=== PATIENT | male | born 1955 | race Caucasian/White ===

== ENCOUNTER 2018-06-20 13:12 | Emergency (ER) | payer OTHER ==
--- NOTE | 2018-06-20 14:18 | RAD REPORT ---
EXAM DESCRIPTION: CT - Head C Spine Mpr Wo Con - 06/20/2018 2:03 pm CLINICAL HISTORY: Head and neck injury status post fall. Head and neck pain COMPARISON: None. TECHNIQUE: Computed axial tomography of the head and cervical spine was obtained. Sagittal and coronal reconstruction was performed. All CT scans are performed using dose optimization technique as appropriate and may include automated exposure control or mA/KV adjustment according to patient size. FINDINGS: Mild parietal scalp swelling is present without a skull fracture. Low-density within the left frontal lobe and right parietooccipital lobe have the appearance of old infarction. Moderate low-density areas within periventricular deep white matter likely represent isch emic changes secondary to small vessel disease An intracranial bleed is not seen. The ventricles are normal in caliber. An extra-axial fluid collect ion is not noted.Fluid within the visualized sinuses and mastoids is not seen Mild posterior subluxation of C3 on C4, C4 on C5-C5 on C6 is present. Spondylosis C4-5 results in severe central spinal stenosis and compression of the spinal cord. A broad-based right paracentral calcified disc herniation is extruded inferiorly C5-6. Marked central spinal stenosis and compression of the spinal cord is seen. A cervical fracture is not visualized. No dislocation is noted. IMPRESSION: No acute intracranial abnormality is seen. A cervical fracture is not visualized. Spondylosis C4-5 resulting in severe central spinal stenosis and compression of the spinal cord Broad base right paracentral calcified disc herniation extruded inferiorly C5-6
--- NOTE | 2018-06-20 14:19 | RAD REPORT ---
EXAM DESCRIPTION: Radha Single View06/20/2018 2:08 pm CLINICAL HISTORY: Chest pain COMPARISON: none FINDINGS: The lungs appear clear of acute infiltrate. The heart is mildly enlarged. A central venou s line has its tip in the superior vena cava IMPRESSION: No acute abnormalities displayed
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
== END 2018-06-20 16:05 | disposition home or self-care (01) ==
LOC: ER 13:12
DX: S09.90XA Unspecified injury of head, initial encounter (principal); S20.219A Contusion of unspecified front wall of thorax, initial encounter; S00.81XA Abrasion of other part of head, initial encounter; Y92.129 Unspecified place in nursing home as the place of occurrence of the external cause; V00.811A Fall from moving wheelchair (powered), initial encounter
CPT/HCPCS: 70450; 71045; 72125; 99284

== ENCOUNTER 2018-07-30 18:54 | Emergency (ER) | payer OTHER ==
--- OUTSIDE RECORDS SUMMARY | 2018-07-30 18:56 | XMS REPORT ---
:1955 [facility] Address [address] [place] [address] Care Team Providers Name Role Phone KENNETH ISBELL M.D. Unavailable Unavailable Problems This patient has no known problems. Allergies, Adverse Reactions, Alerts This patient has no known allergies or adverse reactions. Medications This patient has no known medications. Results Test Description Test Time Test Comments Text Results Atomic Results Result Comments XR CHEST 1 VIEW 2018-02-14 10:20:53 CT BRAIN WITHOUT CONTRAST: 0950 HOURS.COMPARISON: No prior studies.CLINICAL INFORMATION: Syncope.Radiation dose lowering techniques were used according to ALARAprinciple. Axial images were made without IV contrast media. Old infarct is seenwithin the right posterior parietal/occipital lobe of. There is corticalatrophy with chronic ischemic changes within periventricular whitematter and within deep white matter tracts. Small old lacunar infarctionis seen within the right basal ganglia. There is no acute bleed. No masseffect or midline shift is identified. The bony calvarium is intact.Visualized paranasal sinuses are clear. Symmetric pneumatization ofmastoid air cells is noted.IMPRESSION:1. No acute intracranial abnormality.2. Atrophy with chronic white matter ischemic changes.3. 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 CVA. Alzheimer'sdisease.No previous studies are available for correlation. There is mild cardiacenlargement with normal pulmonary vascularity. No acute infiltrates orpleural effusions are identified. Port-A-Cath position is unchanged.Arthritic changes are noted within the shoulders.IMPRESSION:1. No radiographic findings of acute cardiopulmonary disease. CT HEAD OR BRAIN WO 2018-02-14 10:20:53 CT BRAIN WITHOUT CONTRAST: 0950 CONTRAST HOURS.COMPARISON: No prior studies.CLINICAL INFORMATION: Syncope.Radiation dose lowering techniques were used according to ALARAprinciple. Axial images were made without IV contrast media. Old infarct is seenwithin the right posterior parietal/occipital lobe of. There is corticalatrophy with chronic ischemic changes within periventricular whitematter and within deep white matter tracts. Small old lacunar infarctionis seen within the right basal ganglia. There is no acute bleed. No masseffect or midline shift is identified. The bony calvarium is intact.Visualized paranasal sinuses are clear. Symmetric pneumatization ofmastoid air cells is noted.IMPRESSION:1. No acute intracranial abnormality.2. Atrophy with chronic white matter ischemic changes.3. 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 CVA. Alzheimer'sdisease.No previous studies are available for correlation. There is mild cardiacenlargement with normal pulmonary vascularity. No acute infiltrates orpleural effusions are identified. Port-A-Cath position is unchanged.Arthritic changes are noted within the shoulders.
--- NOTE | 2018-07-30 19:26 | RAD REPORT ---
EXAM DESCRIPTION: CT - Head Brain Wo Cont - 07/30/2018 7:16 pm CLINICAL HISTORY: TRAUMA COMPARISON: Head C Spine Mpr Wo Con dated 06/20/2018 TECHNIQUE: All CT scans are performed using dose optimization technique as appropriate and may inclu de automated exposure control or mA/KV adjustment according to patient size. FINDINGS: No intracranial hemorrhage, hydrocephalus or extra-axial fluid collection.Moderate general ized brain atrophy is present with moderate periventricular and deep white matter chronic microvascul ar ischemic changes.Gliosis is seen in the right occipital lobe compatible with old infarct. Vertebra l arteries are atherosclerotic. The paranasal sinuses and mastoids are clear. The calvarium is intact. IMPRESSION: No acute intracranial abnormality.
--- NOTE | 2018-07-30 19:39 | RAD REPORT ---
EXAM DESCRIPTION: RAD - Forearm Right - 07/30/2018 7:32 pm CLINICAL HISTORY: PAIN COMPARISON: No comparisons FINDINGS: No acute fracture or dislocation. Soft tissue swelling is present in the forearm. IMPRESSION: No acute fracture seen.
--- NOTE | 2018-07-30 20:32 | EDPHYS ---
Physician Documentation [facility] Name: Brandin Baker Age: 63 yrs Sex: Male : 1955 Arrival Date: 07/30/2018 Time: 18:59 Bed 28 Private MD: ED Physician Eduardo Jeffries HPI: 07/30 20:04 This 63 yrs old Male presents to ER via EMS with complaints of Fall Injury. kb 20:04 Details of fall: The patient fell from an upright position, while standing. Onset: The kb symptoms/episode began/occurred just prior to arrival. Associated injuries: The patient sustained injury to the head, laceration, 2 cm(s). Severity of symptoms: At their worst the symptoms were mild, in the emergency department the symptoms are unchanged. The patient has not experienced similar symptoms in the past. The patient has not recently seen a physician. Pt stood up from wheelchair and fell. Laceration to head and bridge of nose, swelling to right forearm. . Historical: - Home Meds: 19:49 aspirin 81 mg Oral chew 1 tab once daily [Active]; Aricept 10 mg Oral tab 1 tab once tl3 daily [Active]; atorvastatin 20 mg oral tab 1 tab once daily [Active]; carbamazepine 100 mg Oral CM12 2 caps three times a day [Active]; Colace 50 mg oral cap 1 cap 2 times per day [Active]; Depakote Sprinkles 125 mg Oral cpSP 3 times per day [Active]; bisacodyl 10 mg Rectal supp 1 suppository once daily [Active]; Zantac 75 mg Oral tab once daily [Active]; Protonix 40 mg Oral TbEC 1 tab 2 times per day [Active]; ergocalciferol (vitamin D2) miscellaneous powd daily [Active]; finasteride 5 mg oral tab 1 tab once daily [Active]; folic acid 1 mg Oral tab 1 tab once daily [Active]; lactulose 10 gram/15 mL (15 mL) Oral soln 15 mL 3 times per day [Active]; Lexapro 10 mg Oral tab 1 tab once daily [Active]; metoprolol tartrate 50 mg Oral tab 1 tab 2 times per day [Active]; Nuedexta 20-10 mg oral cap 1 cap every 12 hours [Active]; - PMHx: 19:26 GERD; Insomnia; Bipolar disorder; Anxiety; Hyperlipidemia; Anemia; urine retention; tl3 constipation; Hypertension; Dementia; Alzheimers; CHF; Epilepsy; dysphagia; Depression; - Immunization history:: Adult Immunizations up to date. - Social history:: Smoking status: unknown. - Immunization history: Last tetanus immunization: - up to date. - Ebola Screening: : No symptoms or risks identified at this time. - Code Status:: Full code. ROS: 20:07 Constitutional: Negative for fever, chills, and weight loss, ENT: Negative for injury, kb pain, and discharge, Neck: Negative for injury, pain, and swelling, Cardiovascular: Negative for chest pain, palpitations, and edema, Respiratory: Negative for shortness of breath, cough, wheezing, and pleuritic chest pain, Abdomen/GI: Negative for abdominal pain, nausea, vomiting, diarrhea, and constipation, Neuro: Negative for headache, weakness, numbness, tingling, and seizure. 20:07 MS/extremity: Positive for swelling, of the right forearm. 20:07 Skin: Positive for laceration(s), of the bridge of nose and top of head. Exam: 20:05 Constitutional: This is a well developed, well nourished patient who is awake, alert, kb and in no acute distress. Chest/axilla: Normal chest wall appearance and motion. Nontender with no deformity. No lesions are appreciated. Cardiovascular: Regular rate and rhythm with a normal S1 and S2. No gallops, murmurs, or rubs. Normal PMI, no JVD. No pulse deficits. Respiratory: Lungs have equal breath sounds bilaterally, clear to auscultation and percussion. No rales, rhonchi or wheezes noted. No increased work of breathing, no retractions or nasal flaring. Abdomen/GI: Soft, non-tender, with normal bowel sounds. No distension or tympany. No guarding or rebound. No evidence of tenderness throughout. Back: No spinal tenderness. No costovertebral tenderness. Full range of motion. Neuro: Awake and alert, GCS 15, oriented to person, place, time, and situation. Cranial nerves II-XII grossly intact. Motor strength 5/5 in all extremities. Sensory grossly intact. Cerebellar exam normal. Normal gait. 20:05 Head/face: Noted is no obvious of injury or deformity except a laceration(s), that is superficial, 2 cm(s), of the top of head. 20:05 Musculoskeletal/extremity: Extremities: grossly normal except: noted in the right forearm: swelling, ROM: intact in all extremities, Circulation is intact in all extremities. Sensation intact. Vital Signs: 19:26 BP 118 / 87; Pulse 98; Resp 18; Temp 98.6(O); Pulse Ox 95% on R/A; tl3 21:07 BP 124 / 77; Pulse 76; Resp 16; Pulse Ox 96% on R/A; tl3 22:35 BP 133 / 87; Pulse 67; Resp 18; Pulse Ox 100% on R/A; tl3 23:34 BP 135 / 81; Pulse 61; Resp 20; Pulse Ox 100% on R/A; tl3 Laceration: 20:08 Wound Repair of 2cm ( 0.8in ) subcutaneous laceration to top of head. Linear shaped.. kb Distal neuro/vascular/tendon intact. Wound prep: Moderate cleansing with betadine by nurse, Wound irrigation with saline by nurse. Skin closed with 2 [place] using staple gun. Patient tolerated well. MDM: 19:00 Patient medically screened. kb 20:05 Data reviewed: vital signs, nurses notes. Data interpreted: Pulse oximetry: on room air kb is 95 %. Interpretation: normal. 20:08 Counseling: I had a detailed discussion with the patient and/or guardian regarding: the kb historical points, exam findings, and any diagnostic results supporting the discharge/admit diagnosis, radiology results, the need for outpatient follow up, a family practitioner, to return to the emergency department if symptoms worsen or persist or if there are any questions or concerns that arise at home. 07/30 19:03 Order name: Forearm Right XRAY; Complete Time: 20:03 kb 07/30 19:03 Order name: CT Head Brain wo Cont; Complete Time: 19:36 kb 07/30 20:04 Order name: Wound Care; Complete Time: 20:31 kb Administered Medications: 20:30 Drug: Tetanus-Diphtheria Toxoid Adult 0.5 ml {Investment Representative: [employer] ([employer] Exp: tl3 07/23/2020. Lot #: [id number]. } Route: IM; Site: right deltoid; 21:09 Follow up: Response: No adverse reaction tl3 Disposition: 07/31 07:11 Co-signature as Attending Physician, Eduardo Jeffries MD. rn Disposition: 07/30/18 20:32 Discharged to Home. Impression: Superficial injury of head, Laceration without foreign body of scalp, Fall on same level from slipping, tripping and stumbling. - Condition is Stable. - Discharge Instructions: Laceration Care, Adult, [id number], Head Injury, Adult, [id number]. - Medication Reconciliation Form, Thank You Letter, Antibiotic Education, Prescription Opioid Use form. - Follow up: Emergency Department; When: As needed; Reason: Worsening of condition. Follow up: Private Physician; When: 2 - 3 days; Reason: Recheck today's complaints, Continuance of care, Re-evaluation by your physician. - Notes: Have carol removed in 5-7 days Signatures: Dispatcher [employer] EDMS Wendi Shearer, MANAGER STYLIST-C MANAGER STYLIST-Ckb Eduardo Jeffries MD MD rn Lowrey, Tammy, RN RN tl3 Corrections: (The following items were deleted from the chart) 07/30 23:38 20:32 07/30/2018 20:32 Discharged to Home. Impression: Superficial injury of head; tl3 Laceration without foreign body of scalp; Fall on same level from slipping, tripping and stumbling. Condition is Stable. Forms are Medication Reconciliation Form, Thank You Letter, Antibiotic Education, Prescription Opioid Use. Follow up: Emergency Department; When: As needed; Reason: Worsening of condition. Follow up: Private Physician; When: 2 - 3 days; Reason: Recheck today's complaints, Continuance of care, Re-evaluation by your physician. kb
--- NOTE | 2018-07-30 20:32 | ER ---
Nurse's Notes [facility] Name: Brandin Baker Age: 63 yrs Sex: Male : 1955 Arrival Date: 07/30/2018 Time: 18:59 Bed 28 Private MD: Diagnosis: Superficial injury of head;Laceration without foreign body of scalp;Fall on same level from slipping, tripping and stumbling Presentation: 07/30 19:00 Presenting complaint: EMS states: pt fell forward out of wheelchair, sent for tl3 laceration to forehead, but also has sig. swelling to right forearm, no LOC, no vomiting pt AO X 1 per norm. Transition of care: patient was received from another setting of care (home health care). Onset of symptoms was July 30, 2018. Risk Assessment: Do you want to hurt yourself or someone else? Patient reports no desire to harm self or others. Initial Sepsis Screen: Does the patient meet any 2 criteria? No. Patient's initial sepsis screen is negative. Does the patient have a suspected source of infection? No. Patient's initial sepsis screen is negative. Care prior to arrival: None. 19:00 Method Of Arrival: EMS: [facility] tl3 19:00 Acuity: BERNARDA 3 tl3 Triage Assessment: 19:26 General: Appears comfortable, well groomed, well developed, well nourished, Behavior is tl3 calm, cooperative, per pt norm. Pain: Complains of pain in dorsal aspect of right forearm. EENT: No signs and/or symptoms were reported regarding the EENT system. Neuro: Level of Consciousness is awake, obeys commands, Oriented to person. Cardiovascular: Patient's skin is warm and dry. Respiratory: Airway is patent Respiratory effort is even, unlabored, Respiratory pattern is regular, symmetrical. GI: No signs and/or symptoms were reported involving the gastrointestinal system. : No signs and/or symptoms were reported regarding the genitourinary system. Derm: No signs and/or symptoms reported regarding the dermatologic system. Musculoskeletal: Parent/caregiver report the patient having pt fell forward out of his wheel chair. Historical: - Home Meds: 19:49 aspirin 81 mg Oral chew 1 tab once daily [Active]; Aricept 10 mg Oral tab 1 tab once tl3 daily [Active]; atorvastatin 20 mg oral tab 1 tab once daily [Active]; carbamazepine 100 mg Oral CM12 2 caps three times a day [Active]; Colace 50 mg oral cap 1 cap 2 times per day [Active]; Depakote Sprinkles 125 mg Oral cpSP 3 times per day [Active]; bisacodyl 10 mg Rectal supp 1 suppository once daily [Active]; Zantac 75 mg Oral tab once daily [Active]; Protonix 40 mg Oral TbEC 1 tab 2 times per day [Active]; ergocalciferol (vitamin D2) miscellaneous powd daily [Active]; finasteride 5 mg oral tab 1 tab once daily [Active]; folic acid 1 mg Oral tab 1 tab once daily [Active]; lactulose 10 gram/15 mL (15 mL) Oral soln 15 mL 3 times per day [Active]; Lexapro 10 mg Oral tab 1 tab once daily [Active]; metoprolol tartrate 50 mg Oral tab 1 tab 2 times per day [Active]; Nuedexta 20-10 mg oral cap 1 cap every 12 hours [Active]; - PMHx: 19:26 GERD; Insomnia; Bipolar disorder; Anxiety; Hyperlipidemia; Anemia; urine retention; tl3 constipation; Hypertension; Dementia; Alzheimers; CHF; Epilepsy; dysphagia; Depression; - Immunization history:: Adult Immunizations up to date. - Social history:: Smoking status: unknown. - Immunization history: Last tetanus immunization: - up to date. - Ebola Screening: : No symptoms or risks identified at this time. - Code Status:: Full code. Screenin:34 Abuse screen: Denies threats or abuse. Nutritional screening: No deficits noted. tl3 Tuberculosis screening: No symptoms or risk factors identified. Fall Risk Fall in past 12 months (25 points). Assessment: 19:34 Reassessment: No changes from previously documented assessment. tl3 21:07 Reassessment: Patient appears in no apparent distress at this time. No changes from tl3 previously documented assessment. Patient and/or family updated on plan of care and expected duration. Pain level reassessed. Patient is alert, oriented x 3, equal unlabored respirations, skin warm/dry/pink. [facility] called for transportation, stated they would send someone for the patient. 22:35 Reassessment: Patient appears in no apparent distress at this time. No changes from tl3 previously documented assessment. Patient and/or family updated on plan of care and expected duration. Pain level reassessed. Patient is alert, oriented x 3, equal unlabored respirations, skin warm/dry/pink. 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 23:34 Reassessment: Patient appears in no apparent distress at this time. No changes from tl3 previously documented assessment. Patient and/or family updated on plan of care and expected duration. Pain level reassessed. Patient is alert, oriented x 3, equal unlabored respirations, skin warm/dry/pink. pt cleaned and changed prior to discharge, [employer] here for transport. Vital Signs: 19:26 BP 118 / 87; Pulse 98; Resp 18; Temp 98.6(O); Pulse Ox 95% on R/A; tl3 21:07 BP 124 / 77; Pulse 76; Resp 16; Pulse Ox 96% on R/A; tl3 22:35 BP 133 / 87; Pulse 67; Resp 18; Pulse Ox 100% on R/A; tl3 23:34 BP 135 / 81; Pulse 61; Resp 20; Pulse Ox 100% on R/A; tl3 ED Course: 18:59 Patient arrived in ED. tl3 19:00 Natalee Thurman, MAUREEN is Primary Nurse. tl3 19:00 [facility] She[facility]C [facility]. kb 19:00 Eduardo Jeffries MD is Attending Physician. kb 19:02 Triage completed. tl3 19:[address] jg6 19:16 CT Head Brain wo Cont In Process Unspecified. EDMS 19:26 Arm band placed on left wrist. tl3 19:32 Forearm Right XRAY In Process Unspecified. EDMS 19:34 Patient has correct armband on for positive identification. Bed in low position. Call tl3 light in reach. Side rails up X 1. Warm blanket given. Pillow given. 19:34 No provider procedures requiring assistance completed. Patient did not have IV access tl3 during this emergency room visit. 19:35 Patient moved back from radiology. 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 Exp: tl3 07/23/2020. Lot #: [id number]. } Route: IM; Site: right deltoid; 21:09 Follow up: Response: No adverse reaction tl3 Outcome: 20:32 Discharge ordered by MD. mendez 23:34 Discharged to intermediate. Report called to [facility] tl3 23:34 Condition: stable 23:34 Discharge instructions given to intermediate, Instructed on discharge instructions, follow up and referral plans. Demonstrated understanding of 23:38 Patient left the ED. tl3 Signatures: Dispatcher [employer] EDWendi Loza, JULIANNA-C JULIANNA-Natalee Woodward, RN RN tl3 Roma Hays jg6
[2018-07-30] MEDS ORDERED: TETANUS & DIPHTHERIA TOX,ADULT 0.5 ML VIAL ONE (20:33)
== END 2018-07-30 23:38 | disposition home or self-care (01) ==
LOC: ER 18:54
PROC: 0JQ00ZZ Repair Scalp Subcutaneous Tissue and Fascia, Open Approach (ICD-10-PCS; principal; 2018-07-30)
DX: S01.01XA Laceration without foreign body of scalp, initial encounter (principal); S00.90XA Unspecified superficial injury of unspecified part of head, initial encounter; W01.0XXA Fall on same level from slipping, tripping and stumbling without subsequent striking against object, initial encounter; Y93.9 Activity, unspecified; Y92.9 Unspecified place or not applicable; F41.8 Other specified anxiety disorders; K21.9 Gastro-esophageal reflux disease without esophagitis; I10 Essential (primary) hypertension; E78.5 Hyperlipidemia, unspecified; G30.9 Alzheimer's disease, unspecified; F02.80 Dementia in other diseases classified elsewhere, unspecified severity, without behavioral disturbance, psychotic disturbance, mood disturbance, and anxiety; G40.909 Epilepsy, unspecified, not intractable, without status epilepticus; Z23 Encounter for immunization
CPT/HCPCS: 70450; 90714; 99284

== ENCOUNTER 2018-08-26 20:46 | Emergency (ER) | payer OTHER ==
--- OUTSIDE RECORDS SUMMARY | 2018-08-26 20:48 | XMS REPORT ---
:1955 [facility] Address [address] [place] [address] Care Team Providers Name Role Phone KENNETH [...]
[2018-08-26] MEDS ORDERED: HALOPERIDOL LACT 5 MG/ML INJ ONE (22:23)
[2018-08-26] MEDS ORDERED: TETANUS & DIPHTHERIA TOX,ADULT 0.5 ML VIAL ONE (22:23)
--- NOTE | 2018-08-26 23:21 | EDPHYS ---
Physician Documentation [facility] Name: Brandin Baker Age: 63 yrs Sex: Male : 1955 Arrival Date: 08/26/2018 Time: 20:51 Bed 24 Private MD: ED Physician Hernandez Carr HPI: 08/26 21:00 This 63 yrs old Male presents to ER via EMS with complaints of laceration. cp 21:00 The patient or guardian reports injury, a laceration, 1.5 cm(s). The complaints affect cp the nose. Context of injury: resulted from a fall, out of wheelchair. Onset: The symptoms/episode began/occurred today. Associated signs and symptoms: Loss of consciousness: This patient did not experience any loss of consciousness. Pertinent negatives: vomiting, chest pain, abdominal pain. Severity of symptoms: in the emergency department the symptoms are unchanged. Historical: - Home Meds: 08/27 00:19 Aricept 10 mg Oral tab 1 tab once daily [Active]; aspirin 81 mg Oral chew 1 tab once tl3 daily [Active]; atorvastatin 20 mg Oral tab 1 tab once daily [Active]; bisacodyl 10 mg Rectal supp 1 suppository once daily [Active]; carbamazepine 100 mg Oral CM12 2 caps three times a day [Active]; Colace 50 mg Oral cap 1 cap 2 times per day [Active]; Depakote Sprinkles 125 mg Oral cpSP 3 times per day [Active]; ergocalciferol (vitamin D2) miscellaneous powd daily [Active]; finasteride 5 mg Oral tab 1 tab once daily [Active]; folic acid 1 mg Oral tab 1 tab once daily [Active]; lactulose 10 gram/15 mL (15 mL) Oral soln 15 mL 3 times per day [Active]; Lexapro 10 mg Oral tab 1 tab once daily [Active]; metoprolol tartrate 50 mg Oral tab 1 tab 2 times per day [Active]; Nuedexta 20-10 mg Oral cap 1 cap every 12 hours [Active]; Protonix 40 mg Oral TbEC 1 tab 2 times per day [Active]; Zantac 75 mg Oral tab once daily [Active]; - PMHx: 00:19 Alzheimers; Anemia; Anxiety; Bipolar disorder; CHF; constipation; Dementia; Depression; tl3 DYSPHAGIA; epilepsy; GERD; Hyperlipidemia; Hypertension; insomnia; urine retention; - Immunization history:: Adult Immunizations up to date. - Social history:: Smoking status: unknown. - Ebola Screening: : No symptoms or risks identified at this time. ROS: 08/26 21:05 Constitutional: Negative for fever. cp 21:05 Abdomen/GI: Negative for vomiting. cp 21:05 Unable to obtain ROS due to baseline dementia. Exam: 21:12 Constitutional: The patient appears in no acute distress, alert, non-diaphoretic, cp non-toxic, well developed, well nourished. 21:12 Head/face: Noted is a laceration(s), that is deep, 1.5 cm(s), of the nose, swelling, cp that is mild, of the nose, tenderness, that is mild, of the nose, Sinus tenderness, is not appreciated. 21:12 Eyes: Periorbital structures: appear normal, Pupils: equal, round, and reactive to light and accomodation, Extraocular movements: intact throughout, Conjunctiva: normal, no exudate, no injection, Sclera: no appreciated abnormality, Lids and lashes: appear normal, bilaterally. 21:12 ENT: External ear(s): are unremarkable, Ear canal(s): are normal, clear, TM's: bulging, is not appreciated, bilaterally, dullness, bilaterally, erythema, is not appreciated, bilaterally, Nose: External nose: laceration is present, swelling is noted, approximately 1.5 cm(s), bridge of nose, Nasal septum: deviates to the right, no septal hematoma appreciated, bleeding, is not appreciated, clotted blood, in right nare, nasal drainage, is not appreciated, Mouth: Lips: moist, Oral mucosa: moist, Posterior pharynx: Airway: no evidence of obstruction, patent, swelling, is not appreciated, erythema, is not appreciated, exudate, is not appreciated. 21:12 Neck: C-spine: vertebral tenderness, is not appreciated, crepitus, is not appreciated, ROM/movement: is normal, is supple, without pain, no range of motions limitations, no nuchal rigidity. 21:12 Chest/axilla: Inspection: normal, Palpation: is normal, no crepitus, no tenderness. 21:12 Cardiovascular: Rate: normal, Rhythm: regular. 21:12 Respiratory: the patient does not display signs of respiratory distress, Respirations: normal, no use of accessory muscles, no retractions, no splinting, no tachypnea, labored breathing, is not present, Breath sounds: are clear throughout, no decreased breath sounds, no stridor, no wheezing. 21:12 Abdomen/GI: Inspection: abdomen appears normal, Palpation: abdomen is soft and non-tender, in all quadrants. 21:12 Musculoskeletal/extremity: Exam is negative for deformity, edema, injury. 21:12 Neuro: Orientation: to person, situation, Not oriented to time, Cerebellar function: is grossly normal, Motor: moves all fours, strength is normal. Vital Signs: 21:07 BP 118 / 94; Pulse 60; Resp 18; Temp 98; Pulse Ox 100% on R/A; Weight 58.51 kg; Height mg2 5 ft. 4 in. (162.56 cm); 21:07 Body Mass Index 22.14 (58.51 kg, 162.56 cm) mg2 Olivia Coma Score: 21:00 Eye Response: spontaneous(4). Verbal Response: oriented(5). Motor Response: obeys cp commands(6). Total: 15. MDM: 20:56 Patient medically screened. cp 22:00 Differential diagnosis: Contusion of Hematoma on Laceration of Intracranial bleed- cp Concussion cerebral contusion. 23:20 Data reviewed: vital signs, nurses notes, radiologic studies, CT scan, and as a result, cp I will discharge patient. 23:20 Counseling: I had a detailed discussion with the patient and/or guardian regarding: the cp historical points, exam findings, and any diagnostic results supporting the discharge/admit diagnosis, radiology results, to return to the emergency department if symptoms worsen or persist or if there are any questions or concerns that arise at home. Response to treatment: the patient's symptoms have markedly improved after treatment, and as a result, I will discharge patient. 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 Exp: tl3 10/14/2020. Lot #: [id number]. } Route: IM; Site: right deltoid; 22:41 Follow up: Response: No adverse reaction tl3 22:23 Drug: HALdol (as decanoate) 5 mg Route: IM; Site: right vastus lateralis; tl3 22:41 Follow up: Response: No adverse reaction tl3 22:41 Not Given (Patient Refused): Lidocaine Gel 2 % 1 application Mucous Membrane once; tl3 apply to nose Disposition: 08/27 00:30 Chart complete. cp 06:53 Co-signature as Attending Physician, Hernandez Carr MD I agree with the assessment and wa plan of care. Disposition: 08/26/18 23:21 Discharged to Home. Impression: Fall from non-moving wheelchair, Laceration without foreign body of nose. - Condition is Stable. - Discharge Instructions: Fall Prevention in the Home, Facial Laceration, Sterile Tape Wound Care. - Medication Reconciliation Form, Thank You Letter, Antibiotic Education, Prescription Opioid Use form. - Follow up: Emergency Department; When: As needed; Reason: Worsening of condition. - Problem is new. - Symptoms have improved. Signatures: Dispatcher [employer] EDEduardo Ann MD MD rn Page, Corey, PA PA Hernandez Carr MD MD wa Lowrey, Tammy, RN RN tl3 Corrections: (The following items were deleted from the chart) 08/26 22:02 22:01 Ativan 1 mg IM once ordered. cp cp 08/27 00:23 08/26 23:21 08/26/2018 23:21 Discharged to Home. Impression: Fall from non-moving tl3 wheelchair; Laceration without foreign body of nose. Condition is Stable. Forms are Medication Reconciliation Form, Thank You Letter, Antibiotic Education, Prescription Opioid Use. Follow up: Emergency Department; When: As needed; Reason: Worsening of condition. Problem is new. Symptoms have improved. cp 08/27 18:51 08/26 21:28 Refusal of service: The patient/guardian displays adequate decision making cp capability and despite a detailed discussion of alternatives, benefits, risks, and consequences refuses: CT Scan, cp
--- NOTE | 2018-08-26 23:21 | ER ---
Nurse's Notes [facility] Name: Brandin Baker Age: 63 yrs Sex: Male : 1955 Arrival Date: 08/26/2018 Time: 20:51 Bed 24 Private MD: Diagnosis: Fall from non-moving wheelchair;Laceration without foreign body of nose Presentation: 08/26 21:05 Presenting complaint: EMS states: patient fell out of the wheelchair \T\[id number] today and mg2 hit his nose, bled out but controlled. denies n/v. Transition of care: patient was received from another setting of care ([facility]. Onset of symptoms was August 26, 2018. Risk Assessment: Do you want to hurt yourself or someone else? Patient reports no desire to harm self or others. Initial Sepsis Screen: Does the patient meet any 2 criteria? No. Patient's initial sepsis screen is negative. Does the patient have a suspected source of infection? No. Patient's initial sepsis screen is negative. Care prior to arrival: None. 21:05 Method Of Arrival: EMS: [facility] mg2 21:05 Acuity: BERNARDA 3 mg2 Triage Assessment: 08/27 00:22 General: Appears unkempt. tl3 Historical: - Home Meds: 00:19 Aricept 10 mg Oral tab 1 tab once daily [Active]; aspirin 81 mg Oral chew 1 tab once tl3 daily [Active]; atorvastatin 20 mg Oral tab 1 tab once daily [Active]; bisacodyl 10 mg Rectal supp 1 suppository once daily [Active]; carbamazepine 100 mg Oral CM12 2 caps three times a day [Active]; Colace 50 mg Oral cap 1 cap 2 times per day [Active]; Depakote Sprinkles 125 mg Oral cpSP 3 times per day [Active]; ergocalciferol (vitamin D2) miscellaneous powd daily [Active]; finasteride 5 mg Oral tab 1 tab once daily [Active]; folic acid 1 mg Oral tab 1 tab once daily [Active]; lactulose 10 gram/15 mL (15 mL) Oral soln 15 mL 3 times per day [Active]; Lexapro 10 mg Oral tab 1 tab once daily [Active]; metoprolol tartrate 50 mg Oral tab 1 tab 2 times per day [Active]; Nuedexta 20-10 mg Oral cap 1 cap every 12 hours [Active]; Protonix 40 mg Oral TbEC 1 tab 2 times per day [Active]; Zantac 75 mg Oral tab once daily [Active]; - PMHx: 00:19 Alzheimers; Anemia; Anxiety; Bipolar disorder; CHF; constipation; Dementia; Depression; tl3 DYSPHAGIA; epilepsy; GERD; Hyperlipidemia; Hypertension; insomnia; urine retention; - Immunization history:: Adult Immunizations up to date. - Social history:: Smoking status: unknown. - Ebola Screening: : No symptoms or risks identified at this time. Screenin:19 Abuse screen: Denies threats or abuse. Nutritional screening: No deficits noted. tl3 Tuberculosis screening: No symptoms or risk factors identified. Fall Risk Fall in past 12 months (25 points). Assessment: 08/26 22:45 General: Appears unkempt, well nourished, Behavior is agitated, anxious, restless. tl3 Pain: Complains of pain in bridge of nose and nose. Neuro: Level of Consciousness is awake, alert, Oriented to person, place, time. Cardiovascular: Patient's skin is warm and dry. Respiratory: Airway is patent. GI: No signs and/or symptoms were reported involving the gastrointestinal system. : No signs and/or symptoms were reported regarding the genitourinary system. EENT:. Derm: Wound noted nose. Musculoskeletal: Musculoskeletal: No deficits noted. No signs and/or symptoms reported regarding the musculoskeletal system. 08/27 00:19 Reassessment: No changes from previously documented assessment. Patient and/or family tl3 updated on plan of care and expected duration. Pain level reassessed. Patient is alert, oriented x 3, equal unlabored respirations, skin warm/dry/pink. pt ride from [employer] her for transport. Vital Signs: 08/26 21:07 BP 118 / 94; Pulse 60; Resp 18; Temp 98; Pulse Ox 100% on R/A; Weight 58.51 kg; Height mg2 5 ft. 4 in. (162.56 cm); 21:07 Body Mass Index 22.14 (58.51 kg, 162.56 cm) mg2 [place] Coma Score: 21:00 Eye Response: spontaneous(4). Verbal Response: oriented(5). Motor Response: obeys cp commands(6). Total: 15. ED Course: 20:51 Patient arrived in ED. mg2 20:56 Francisco Brewster PA is PHCP. cp 20:56 Hernandez Carr MD is Attending Physician. cp 21:06 Triage completed. mg2 21:[address] via stretcher. eh 22:13 Natalee Thurman, MAUREEN is Primary Nurse. tl3 22:[address] tl3 22:24 CT Head C Spine Sent. tl3 22:25 CT Facial Bones W/O Con Sent. tl3 22:34 CT Facial Bones W/O Con In Process Unspecified. EDMS 22:34 CT Head C Spine In Process Unspecified. EDMS 23:08 CT completed. Pt tolerated procedure poorly. Patient moved back from CT. 08/27 00:19 No provider procedures requiring assistance completed. Patient did not have IV access tl3 during this emergency room visit. 00:19 Patient has correct armband on for positive identification. Placed in gown. Bed in low tl3 position. Side rails up X2. 00:23 Arm band placed on. 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 Exp: tl3 10/14/2020. Lot #: [id number]. } Route: IM; Site: right deltoid; 22:41 Follow up: Response: No adverse reaction tl3 22:23 Drug: HALdol (as decanoate) 5 mg Route: IM; Site: right vastus lateralis; tl3 22:41 Follow up: Response: No adverse reaction tl3 22:41 Not Given (Patient Refused): Lidocaine Gel 2 % 1 application Mucous Membrane once; tl3 apply to nose Outcome: 23:21 Discharge ordered by . cp 08/27 00:19 Discharged to home ambulatory. tl3 Condition: stable Discharge instructions given to asbestos siding installer, Instructed on discharge instructions, follow up and referral plans. medication usage, Demonstrated understanding of instructions, follow-up care, wound care. 00:23 Patient left the ED. tl3 Signatures: Dispatcher [employer] EDMA Umang Napoles Francisco Brewster PA PA cp Natalee Thurman, RN RN tl3 Moiz Park, RN RN mg2
--- NOTE | 2018-08-27 08:45 | RAD REPORT ---
EXAM DESCRIPTION: CT - [id number] - 08/27/2018 3:55 am CLINICAL HISTORY: Trauma, head and neck injury. fall out of wheelchair COMPARISON: Head C Spine Mpr Wo Con dated 06/20/2018 TECHNIQUE: Axial 5 mm thick images of the head were obtained. Axial 2 mm thick images of the cervical spine were obtained with sagittal and coronal reconstruction images generated and reviewed. All CT scans are performed using dose optimization technique as appropriate and may include automated exposure control or mA/KV adjustment according to patient size. FINDINGS: CT HEAD WITHOUT CONTRAST: No acute hemorrhage, hydrocephalus or extra-axial collection is identified.Advanced generalized brain atrophy is present with advanced periventricular and deep white matter chronic microvascular ischemi c changes.Gliosis is present right parietal lobe. The paranasal sinuses and mastoids are clear.The calvarium is intact. CT CERVICAL SPINE WITHOUT CONTRAST: No fracture or subluxation.Advanced multilevel degenerative changes present in the mid cervical spine .No prevertebral soft tissues swelling is identified. IMPRESSION: No acute intracranial or cervical spine findings. Advanced midcervical degenerative change.
--- NOTE | 2018-08-27 09:10 | RAD REPORT ---
EXAM DESCRIPTION: CT - CTFB CLINICAL HISTORY: laceration to nose from fall COMPARISON: No comparisons TECHNIQUE: Axial 2 mm thick images of the face were obtained with sagittal and coronal reconstructio n images. All CT scans are performed using dose optimization technique as appropriate and may include automated exposure control or mA/KV adjustment according to patient size. FINDINGS: Mild fracture of the anterior nasal bone is seen.The mandible is intact. The globes and orbital contents are grossly unremarkable.The paranasal sinuses and mastoids are clear . IMPRESSION: Mild nasal bone fracture. A preliminary written report was provided at the time of the study, and the report was reviewed prior to final dictation. Findings were discussed Dr. Jeffries in the ER 9:05 a.m. 08/27/2018 by telephone.
== END 2018-08-27 00:23 | disposition home or self-care (01) ==
LOC: ER 20:46
DX: S01.21XA Laceration without foreign body of nose, initial encounter (principal); W05.0XXA Fall from non-moving wheelchair, initial encounter; Y93.9 Activity, unspecified; Y92.9 Unspecified place or not applicable; Z23 Encounter for immunization; Z79.82 Long term (current) use of aspirin; I10 Essential (primary) hypertension; E78.5 Hyperlipidemia, unspecified; I50.9 Heart failure, unspecified; G30.9 Alzheimer's disease, unspecified; F02.80 Dementia in other diseases classified elsewhere, unspecified severity, without behavioral disturbance, psychotic disturbance, mood disturbance, and anxiety; F32.9 Major depressive disorder, single episode, unspecified
CPT/HCPCS: 70450; 70486; 72125; 76377; 90714; 96372; 99284; J1630

== ENCOUNTER 2018-11-19 11:36 | Emergency (ER) | payer OTHER ==
--- OUTSIDE RECORDS SUMMARY | 2018-11-19 11:37 | XMS REPORT ---
:1955 [facility] Address [address] [place] [address] Care Team Providers Name Role Phone KENNETH [...]
--- NOTE | 2018-11-19 13:51 | RAD REPORT ---
EXAM DESCRIPTION: Shoulder Right 2 View - 11/19/2018 1:15 pm CLINICAL HISTORY: Shoulder pain COMPARISON: Portable chest May 2018 TECHNIQUE: Internal and external rotation views of the right shoulder were obtained. FINDINGS: Right humerus has been dislocated from the shoulder joint. The humeral head is positioned inferior and slightly medial to the glenoid. This is a typical appearance for anterior dislocation no proximal humerus fracture seen. Osteopenic changes are present in the shaft of the humerus. There is spurring along the articular margin of the humeral head. There is subtle irregular contour along the humeral head abutting the inferior margin of the glenoid. There is questionable remodeling along the inferior margin of the glenoid as well. AC joint degenerative changes are present. Positioning for this examination is not optimal for AC ass essment. No AC joint separation. No clavicle fracture. IMPRESSION: Anterior dislocation of the right humeral head. The dislocation is new from May 2018 imaging. There are changes to the humeral head and glenoid th at would support chronic or recurring dislocation.
--- NOTE | 2018-11-19 14:02 | ER ---
Nurse's Notes [facility] Name: Brandin Baker Age: 63 yrs Sex: Male : 1955 Arrival Date: 11/19/2018 Time: 11:39 Bed 12 Private MD: Diagnosis: Unspecified dislocation of right shoulder joint Presentation: 11/19 12:05 Presenting complaint: [facility] worker states that a doctor from our facility wanted him to tw2 come get a referral for his right shoulder, but the family states it has been offset for years. Transition of care: patient was received from another setting of care ([facility]. Onset of symptoms was November 19, 2018. Risk Assessment: Do you want to hurt yourself or someone else? Patient reports no desire to harm self or others. Initial Sepsis Screen: Does the patient meet any 2 criteria? No. Patient's initial sepsis screen is negative. Does the patient have a suspected source of infection? No. Patient's initial sepsis screen is negative. Care prior to arrival: None. 12:05 Method Of Arrival: Wheelchair tw2 12:05 Acuity: BERNARDA 4 tw2 Triage Assessment: 14:08 General: Appears in no apparent distress. Behavior is calm, cooperative. iw Historical: - PMHx: 12:08 urine retention; Hypertension; Hyperlipidemia; DYSPHAGIA; Dementia; Bipolar disorder; tw2 constipation; Anxiety; CHF; Depression; Alzheimers; Anemia; epilepsy; GERD; insomnia; - Immunization history:: Adult Immunizations. - Social history:: Smoking status: . - Ebola Screening: : Patient denies travel to an Ebola-affected area in the 21 days before illness onset. Screenin:08 Abuse screen: Denies threats or abuse. Denies injuries from another. Nutritional iw screening: No deficits noted. Tuberculosis screening: No symptoms or risk factors identified. Fall Risk None identified. Assessment: 13:09 General: Appears in no apparent distress. Behavior is calm. Pain: Denies pain. Neuro: iw Level of Consciousness is awake, alert, obeys commands. Cardiovascular: Patient's skin is warm and dry. Respiratory: Respiratory effort is even, unlabored. Derm: Skin is intact, is healthy with good turgor. Musculoskeletal: Range of motion: limited in right shoulder. Vital Signs: 12:06 BP 96 / 59; Pulse 61; Resp 17; Temp 98.6(O); Pulse Ox 100% on R/A; Weight 65.77 kg (R); tw2 Height 5 ft. 0 in. (152.40 cm) (R); Pain 0/10; 12:06 Body Mass Index 28.32 (65.77 kg, 152.40 cm) tw2 ED Course: 11:39 Patient arrived in ED. mr 12:06 Triage completed. tw2 12:07 Arm band placed on. tw2 12:34 Jayne Enriquez RN is Primary Nurse. iw 12:49 Miguelito Louis NP is PHCP. pm1 12:49 Riaz Anderson MD is Attending Physician. pm1 13:09 X-ray completed. Portable x-ray completed in exam room. Patient tolerated procedure jb2 well. 13:09 Patient has correct armband on for positive identification. iw 13:12 Shoulder Right (2 View) XRAY In Process Unspecified. EDMS 14:02 Jose Eduardo Barton MD is Referral Physician. pm1 14:08 No provider procedures requiring assistance completed. Patient did not have IV access iw during this emergency room visit. Administered Medications: No medications were administered Outcome: 14:00 Discharge ordered by . pm1 14:08 Discharged to residential. iw 14:08 Condition: good 14:08 Discharge instructions given to housekeeping aide, Instructed on discharge instructions, follow up and referral plans. Demonstrated understanding of instructions, follow-up care. 14:09 Patient left the ED. iw Signatures: Dispatcher [employer] EDWI Mickey Loretta Fariase jb2 Jayne Enriquez RN RN iw Miguelito Louis NP [employer] pm1 Dennise Dodd RN RN tw2
--- NOTE | 2018-11-19 14:02 | EDPHYS ---
Physician Documentation [facility] Name: Brandin Baker Age: 63 yrs Sex: Male : 1955 Arrival Date: 11/19/2018 Time: 11:39 Bed 12 Private MD: ED Physician Riaz Anderson HPI: 11/19 12:59 This 63 yrs old Male presents to ER via Wheelchair with complaints of Right pm1 shoulder pain. 12:59 The patient or guardian complains of pain, dislocation. The complaints affect the right pm1 shoulder. Context: The problem was sustained at a long term or assisted living facility, resulted from unknown cause. Onset: The symptoms/episode began/occurred 6-7 years ago per family. Treatment prior to arrival includes: no previous treatment. Modifying factors: The symptoms are alleviated by nothing. the symptoms are aggravated by nothing. Severity of symptoms: in the emergency department the symptoms are unchanged. The patient has experienced similar episodes in the past, chronically. The patient has not recently seen a physician. Patient from long term and is present with health care worker. health care worker sates that the patient was sent here for an orthopedic referral for his chronic right shoulder dislocation. According to his family member who called the healthcare worker, the patient's shoulder has been an issue for 6-7 years. Historical: - PMHx: 12:08 urine retention; Hypertension; Hyperlipidemia; DYSPHAGIA; Dementia; Bipolar disorder; tw2 constipation; Anxiety; CHF; Depression; Alzheimers; Anemia; epilepsy; GERD; insomnia; - Immunization history:: Adult Immunizations. - Social history:: Smoking status: . - Ebola Screening: : Patient denies travel to an Ebola-affected area in the 21 days before illness onset. ROS: 12:59 Constitutional: Negative for fever, chills, and weight loss, Eyes: Negative for injury, pm1 pain, redness, and discharge, ENT: Negative for injury, pain, and discharge, Neck: Negative for injury, pain, and swelling, Cardiovascular: Negative for chest pain, palpitations, and edema, Respiratory: Negative for shortness of breath, cough, wheezing, and pleuritic chest pain, Abdomen/GI: Negative for abdominal pain, nausea, vomiting, diarrhea, and constipation, Back: Negative for injury and pain, : Negative for injury, bleeding, discharge, and swelling, Skin: Negative for injury, rash, and discoloration, Neuro: Negative for headache, weakness, numbness, tingling, and seizure. 12:59 MS/extremity: Positive for pain, of the right shoulder. Exam: 12:59 Constitutional: This is a well developed, well nourished patient who is awake, alert, pm1 and in no acute distress. Head/Face: Normocephalic, atraumatic. Neck: Trachea midline, no thyromegaly or masses palpated, and no cervical lymphadenopathy. Supple, full range of motion without nuchal rigidity, or vertebral point tenderness. No Meningismus. Chest/axilla: Normal chest wall appearance and motion. Nontender with no deformity. No lesions are appreciated. Cardiovascular: Regular rate and rhythm with a normal S1 and S2. No gallops, murmurs, or rubs. Normal PMI, no JVD. No pulse deficits. Respiratory: Lungs have equal breath sounds bilaterally, clear to auscultation and percussion. No rales, rhonchi or wheezes noted. No increased work of breathing, no retractions or nasal flaring. Back: No spinal tenderness. No costovertebral tenderness. Full range of motion. Skin: Warm, dry with normal turgor. Normal color with no rashes, no lesions, and no evidence of cellulitis. 12:59 Musculoskeletal/extremity: Extremities: all appear grossly normal, with no appreciated pain with palpation, ROM: full passive range of motion, in the right shoulder, No right shoulder dislocation present on examination, Pulses: are normal with no appreciated deficits, noted to be 2+ in the right radial artery and right brachial artery, the right arm Sensation intact. Vital Signs: 12:06 BP 96 / 59; Pulse 61; Resp 17; Temp 98.6(O); Pulse Ox 100% on R/A; Weight 65.77 kg (R); tw2 Height 5 ft. 0 in. (152.40 cm) (R); Pain 0/10; 12:06 Body Mass Index 28.32 (65.77 kg, 152.40 cm) tw2 Procedures: 13:49 Reduction: of the right shoulder, using manipulation, Patient tolerated well. Passive pm1 range of motion intact post reduction. MDM: 12:56 Patient medically screened. pm1 13:58 ED course: Patient without clinical dislocation on initial evaluation. Possibly pm1 dislocated with patient sitting in the wheelchair with right arm resting against arm rest. Patient's right shoulder has been dislocated for multiple years per family member. Right shoulder was easily reduced without medication and patient tolerated well. 13:59 Data reviewed: vital signs. Data interpreted: Pulse oximetry: on room air is 100 %. pm1 Interpretation: normal. Counseling: I had a detailed discussion with the patient and/or guardian regarding: the historical points, exam findings, and any diagnostic results supporting the discharge/admit diagnosis, radiology results, the need for outpatient follow up, for definitive care, a orthopedic surgeon, to return to the emergency department if symptoms worsen or persist or if there are any questions or concerns that arise at home. 11/19 12:59 Order name: Shoulder Right (2 View) XRAY; Complete Time: 13:58 pm1 Administered Medications: No medications were administered Disposition: 11/19/18 14:00 Discharged to Home. Impression: Unspecified dislocation of right shoulder joint. - Condition is Stable. - Discharge Instructions: Shoulder Dislocation. - Medication Reconciliation Form, Thank You Letter, Prescription Opioid Use form. - Follow up: Emergency Department; When: As needed; Reason: Worsening of condition. Follow up: Private Physician; When: 2 - 3 days; Reason: Recheck today's complaints, Continuance of care, Re-evaluation by your physician. Follow up: Jose Eduardo Barton MD; When: 2 - 3 days; Reason: Recheck today's complaints, Continuance of care, Re-evaluation by your physician. - Problem is new. - Symptoms are unchanged. Addendum: 11/26/2018 08:57 Co-signature as Attending Physician, Riaz Anderson MD I agree with the assessment and k dr plan of care. Signatures: Dispatcher [employer] EDMS Riaz Anderson MD MD kdr Jayne Enriquez RN RN iw Miguelito Louis NP [employer] pm1 Dennise Dodd RN RN tw2 Corrections: (The following items were deleted from the chart) 11/19 14:02 14:00 11/19/2018 14:00 Discharged to Home. Impression: Unspecified dislocation of right pm1 shoulder joint. Condition is Stable. Forms are Medication Reconciliation Form, Thank You Letter, Antibiotic Education, Prescription Opioid Use. Follow up: Emergency Department; When: As needed; Reason: Worsening of condition. Follow up: Private Physician; When: 2 - 3 days; Reason: Recheck today's complaints, Continuance of care, Re-evaluation by your physician. Problem is new. Symptoms are unchanged. pm1 14:09 14:02 11/19/2018 14:00 Discharged to Home. Impression: Unspecified dislocation of right iw shoulder joint. Condition is Stable. Discharge Instructions: Shoulder Dislocation. Forms are Medication Reconciliation Form, Thank You Letter, Prescription Opioid Use. Follow up: Emergency Department; When: As needed; Reason: Worsening of condition. Follow up: Private Physician; When: 2 - 3 days; Reason: Recheck today's complaints, Continuance of care, Re-evaluation by your physician. Follow up: Jose Eduardo Barton; When: 2 - 3 days; Reason: Recheck today's complaints, Continuance of care, Re-evaluation by your physician. Problem is new. Symptoms are unchanged. pm1
== END 2018-11-19 14:09 | disposition home or self-care (01) ==
LOC: ER 11:36
PROC: 0RSJXZZ Reposition Right Shoulder Joint, External Approach (ICD-10-PCS; principal; 2018-11-19)
DX: S43.004A Unspecified dislocation of right shoulder joint, initial encounter (principal); I10 Essential (primary) hypertension; G30.9 Alzheimer's disease, unspecified; F02.80 Dementia in other diseases classified elsewhere, unspecified severity, without behavioral disturbance, psychotic disturbance, mood disturbance, and anxiety; X58.XXXA Exposure to other specified factors, initial encounter; Y93.9 Activity, unspecified; Y92.129 Unspecified place in nursing home as the place of occurrence of the external cause
CPT/HCPCS: 99283

== ENCOUNTER 2018-12-31 19:33 | Inpatient (IN) | payer OTHER ==
--- OUTSIDE RECORDS SUMMARY | 2018-12-31 19:35 | XMS REPORT ---
:1955 [facility] [address] [place] [address] Care Team Providers Name Role Phone KENNETH [...]
[2018-12-31] MEDS ORDERED: NA CHLORIDE 0.9% 1,000 ML ONE ×2 (19:56→20:26)
--- NOTE | 2018-12-31 19:56 | RAD REPORT ---
EXAM DESCRIPTION: CT - Ct Stroke Brain Wo Cont - 12/31/2018 7:42 pm CLINICAL HISTORY: Slurred speech COMPARISON: July 2018 TECHNIQUE: Computed axial tomography of the head was obtained. IV contrast was not requested. All CT scans are performed using dose optimization technique as appropriate and may include automated exposure control or mA/KV adjustment according to patient size. FINDINGS: An intracranial bleed is not seen . The ventricles are normal in caliber. No extra-axial fluid collection is noted. 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 Moderate low-density areas within periventricular, deep and subcortical white matter likely secondary to ischemic changes secondary to small vessel disease. Small old left frontal lobe infarct suspected. Mild chronic sinusitis IMPRESSION: No acute intracranial abnormality is seen. If patient's symptoms persist MRI of the bra in would be recommended. Exam was discussed with Dr. Borges 7:40 p.m. December 31, 2018
[2018-12-31] MEDS ORDERED: NA CHLORIDE 0.9% 250 ML ONE (20:26)
[2018-12-31] MEDS ORDERED: LORazepam 2 MG/ML VIAL ONE (20:26)
[2018-12-31] MEDS ORDERED: CEFEPIME 1 GM/100 ML BAG IV ONE (20:26)
[2018-12-31] MEDS ORDERED: VANCOMYCIN 1 GM/VIAL ONE (20:26)
[2018-12-31 20:48] LABS: Absolute Lymphocytes (CBC) 1.6 K/uL (0.7-4.9); Basophils % 0.3 % (0-1.3); Eosinophils % 0.1 % (0-4.4); Hematocrit 29.1 % (39.6-49.0); Lymphocytes % 10.7 % (15.3-44.8); MPV 9.7 fL (7.6-11.3); Monocytes % 13.5 % (3.3-12.3); RBC Red Blood Cell Count 2.81 M/uL (4.33-5.43)
[2018-12-31 20:53] LABS: Protime INR 1.07
--- NOTE | 2018-12-31 21:00 | RAD REPORT ---
EXAM DESCRIPTION: Radha Single View12/31/2018 8:53 pm CLINICAL HISTORY: Could stroke COMPARISON: May 2018 FINDINGS: Mild progression in bilateral pulmonary opacities. The heart is normal size. Centri is li ne remains in place IMPRESSION: Mild progression in bilateral pulmonary opacities may represent progression in pulmonar y fibrosis or an acute process such as pneumonitis, pneumonia or pulmonary edema superimposed over ch ronic changes
[2018-12-31 21:19] LABS: Blood Morphology Comment NOTED (NOT SEEN); Hypochromasia 1+; Macrocytosis 1+; Platelet Estimate ADEQ
[2018-12-31 21:22] LABS: ALT/SGPT 34 U/L (12-78); AST/SGOT 46 U/L (15-37); Albumin 2.3 g/dL (3.4-5.0); Alkaline Phosphatase 95 U/L (45-117); BUN Blood Urea Nitrogen 27 mg/dL (7-18); Bicarbonate 27 mmol/L (21-32); Bilirubin Direct 0.2 mg/dL (0-0.2); Bilirubin Total 0.6 mg/dL (0.2-1.0); CKMB Creatine Kinase MB 4.6 ng/mL (0.3-3.6); Creatine Phosphokinase 461 U/L (39-308); Glucose Level 136 mg/dL (74-106); Lipase 83 U/L (73-393); Potassium 4.1 mmol/L (3.5-5.1); Sodium Level 137 mmol/L (136-145); Troponin (Emerg Dept Use Only) < 0.02 ng/mL (0.0-0.045)
[2018-12-31 22:27] LABS: Urine Bacteria <20 /HPF (NONE SEEN); Urine Culture Reflex Order NOT NEEDED
--- NOTE | 2018-12-31 23:08 | EDPHYS ---
Physician Documentation [facility] Name: Brandin Baker Age: 63 yrs Sex: Male : 1955 Arrival Date: 12/31/2018 Time: 19:34 Bed 30 Private MD: ED Physician Paresh Perez HPI: 12/31 21:23 This 63 yrs old Male presents to ER via EMS with complaints of AMS. ma2 21:23 The patient presents with confusion. Onset: The symptoms/episode began/occurred ma2 gradually, 1 day(s) ago. Possible causes: CVA or TIA, head injury, low blood sugar, seizure, sepsis. Associated signs and symptoms: Pertinent positives: agitation, confusion, Pertinent negatives: chest pain, diaphoresis, diarrhea. Current symptoms: In the emergency department the patient's symptoms are unchanged from the initial presentation. The patient has experienced a previous episode. Historical: - Allergies: 21:55 No Known Allergies; mg2 - Home Meds: 21:55 Aricept 10 mg Oral tab 1 tab once daily [Active]; aspirin 81 mg Oral chew 1 tab once mg2 daily [Active]; atorvastatin 20 mg Oral tab 1 tab once daily [Active]; bisacodyl 10 mg Rectal supp 1 suppository once daily [Active]; carbamazepine 100 mg Oral CM12 2 caps three times a day [Active]; Colace 50 mg Oral cap 1 cap 2 times per day [Active]; Depakote Sprinkles 125 mg Oral cpSP 3 times per day [Active]; ergocalciferol (vitamin D2) miscellaneous powd daily [Active]; finasteride 5 mg Oral tab 1 tab once daily [Active]; folic acid 1 mg Oral tab 1 tab once daily [Active]; lactulose 10 gram/15 mL (15 mL) Oral soln 15 mL 3 times per day [Active]; Lexapro 10 mg Oral tab 1 tab once daily [Active]; metoprolol tartrate 50 mg Oral tab 1 tab 2 times per day [Active]; Nuedexta 20-10 mg Oral cap 1 cap every 12 hours [Active]; Protonix 40 mg Oral TbEC 1 tab 2 times per day [Active]; Zantac 75 mg Oral tab once daily [Active]; - PMHx: 21:55 Alzheimers; Anemia; Anxiety; Bipolar disorder; CHF; constipation; Dementia; DYSPHAGIA; mg2 epilepsy; Depression; GERD; Hyperlipidemia; Hypertension; urine retention; insomnia; - Immunization history:: Flu vaccine status is unknown. - Social history:: Patient/guardian denies using alcohol, street drugs, The patient lives in a fpc, Smoking status: unknown. - Family history:: not pertinent. - Ebola Screening: : No symptoms or risks identified at this time. ROS: 21:23 ENT: Negative for injury, pain, and discharge, Neck: Negative for injury, pain, and ma2 swelling, Cardiovascular: Negative for chest pain, palpitations, and edema, Abdomen/GI: Negative for abdominal pain, nausea, diarrhea, and constipation, Back: Negative for injury and pain. 21:23 Respiratory: Positive for cough, Negative for dyspnea on exertion, pleurisy, sputum production. 21:23 All other systems are negative. Exam: 21:23 Head/Face: Normocephalic, atraumatic. Eyes: Pupils equal round and reactive to light, ma2 extra-ocular motions intact. Lids and lashes normal. Conjunctiva and sclera are non-icteric and not injected. Cornea within normal limits. Periorbital areas with no swelling, redness, or edema. ENT: Nares patent. No nasal discharge, no septal abnormalities noted. Tympanic membranes are normal and external auditory canals are clear. Oropharynx with no redness, swelling, or masses, exudates, or evidence of obstruction, uvula midline. Mucous membranes moist. Cardiovascular: Regular rate and rhythm with a normal S1 and S2. No gallops, murmurs, or rubs. Normal PMI, no JVD. No pulse deficits. Abdomen/GI: Soft, non-tender, with normal bowel sounds. No distension or tympany. No guarding or rebound. No evidence of tenderness throughout. 21:23 Respiratory: moderate respiratory distress is noted, Breath sounds: bronchial sounds, rhonchi, that are moderate, are scattered. 21:23 Neuro: Orientation: Mentation: confused, Cerebellar function: moving all extremities unable to assess d/t uncooperative and ams. Vital Signs: 20:06 BP 80 / 56; Pulse 65; Resp 20; Temp 98.6; Pulse Ox 100% on 3 lpm NC; Weight 65.7 kg; mg2 Height 5 ft. 0 in. (152.40 cm); 21:05 BP 82 / 55; Pulse 65; Resp 18; Pulse Ox 94% on R/A; Pain 0/10; mg2 21:41 BP 115 / 68; Pulse 81; Resp 18; Pulse Ox 98% on R/A; mg2 22:44 BP 79 / 59; Pulse 81; Resp 18; Pulse Ox 93% on 2 lpm NC; mg2 01/01 00:23 BP 81 / 59; Pulse 65; Resp 18; Temp 98.2; Pulse Ox 95% on 2 lpm NC; Pain 0/10; mg2 01:00 BP 97 / 77; Pulse 68; Resp 18; Temp 98.5; Pulse Ox 98% on 2 lpm NC; Pain 0/10; mg2 12/31 20:06 Body Mass Index 28.29 (65.70 kg, 152.40 cm) mg2 12/31 21:41 pt is sleeping mg2 MDM: 19:37 Patient medically screened. [facility] 21:23 Differential Diagnosis: CVA, electrolyte abnormality, intracranial bleed, meningitis, dc2 pneumonia, seizure, sepsis, volume depletion. 23:05 Data reviewed: vital signs, nurses notes. Counseling: I had a detailed discussion with [facility] the patient and/or guardian regarding: the historical points, exam findings, and any diagnostic results supporting the discharge/admit diagnosis, the presence of at least one elevated blood pressure reading (>120/80) during this emergency department visit, the need for further work-up and treatment in the hospital. Response to treatment: the patient's symptoms have markedly improved after treatment. ED course: BP improved has sepsis pneumonia tested positive for flu in the past . 12/31 19:50 Order name: Urine Culture [facility] 12/31 19:50 Order name: C-Reactive Protein [facility] 12/31 19:50 Order name: Basic Metabolic Panel [facility] 12/31 19:50 Order name: Blood Culture Adult (2) [facility] 12/31 19:50 Order name: CBC with Diff [facility] 12/31 19:50 Order name: Ckmb [facility] 12/31 19:50 Order name: CPK [facility] 12/31 19:50 Order name: Lactate [facility] 12/31 19:50 Order name: LFT's [facility] 12/31 19:50 Order name: Lipase [facility] 12/31 19:50 Order name: Procalcitonin [facility] 12/31 19:50 Order name: Protime (+inr) dc2 12/31 19:50 Order name: Ptt, Activated dc2 12/31 19:50 Order name: Troponin (emerg Dept Use Only) dc2 12/31 19:50 Order name: Urine Microscopic Only dc2 12/31 19:50 Order name: Influenza Screen (a \T\ B) dc2 12/31 20:52 Order name: CBC with Automated Diff; Complete Time: 21:58 EDMS 12/31 20:56 Order name: Protime (+INR); Complete Time: 21:58 EDMS 12/31 20:56 Order name: PTT, Activated Partial Thromb; Complete Time: 21:58 EDMS 12/31 21:01 Order name: Influenza Screen (A ; Complete Time: 21:58 EDMS 12/31 21:20 Order name: Manual Differential; Complete Time: 21:58 EDMS 12/31 21:22 Order name: Basic Metabolic Panel; Complete Time: 21:58 EDMS 12/31 21:22 Order name: Liver (Hepatic) Function; Complete Time: 21:58 EDMS 12/31 21:22 Order name: Creatine Phosphokinase; Complete Time: 21:58 EDMS 12/31 21:22 Order name: CKMB Creatine Kinase MB; Complete Time: 21:58 EDMS 12/31 21:22 Order name: Troponin (Emerg Dept Use Only); Complete Time: 21:58 EDMS 12/31 21:22 Order name: C-Reactive Protein; Complete Time: 21:58 EDMS 12/31 21:22 Order name: Lipase; Complete Time: 21:58 EDMS 12/31 21:30 Order name: Procalcitonin; Complete Time: 21:58 EDMS 12/31 21:51 Order name: Lactate; Complete Time: 21:58 EDMS 12/31 19:58 Order name: CT; Complete Time: 21:58 EDMS 12/31 21:00 Order name: RAD; Complete Time: 21:58 EDMS 12/31 22:28 Order name: Urine Microscopic Only; Complete Time: 22:46 EDMS 12/31 23:13 Order name: Ct Stroke Brain Wo Cont EDMS 12/31 23:14 Order name: Chest Single View EDMS 12/31 23:17 Order name: Urine Dipstick--Ancillary (enter results) ag4 12/31 23:46 Order name: Basic Metabolic Panel EDMS 12/31 23:46 Order name: Liver (Hepatic) Function EDMS 12/31 23:46 Order name: Creatine Phosphokinase EDMS 12/31 23:46 Order name: CKMB Creatine Kinase MB EDMS 12/31 23:46 Order name: Troponin (Emerg Dept Use Only) EDMS 12/31 23:46 Order name: C-Reactive Protein EDMS 12/31 23:46 Order name: Lipase EDMS 12/31 23:46 Order name: Procalcitonin EDMS 12/31 23:46 Order name: Lactate EDMS 12/31 23:46 Order name: CBC with Automated Diff EDMS 12/31 23:46 Order name: Manual Differential EDMS 12/31 23:46 Order name: Protime (+INR) EDMS 12/31 23:46 Order name: PTT, Activated Partial Thromb EDMS 12/31 23:46 Order name: Blood Culture EDMS 12/31 23:46 Order name: Blood Culture EDMS 12/31 23:46 Order name: Influenza Screen (A EDMS 12/31 23:46 Order name: Urine Microscopic Only EDMS 12/31 23:46 Order name: Urine Culture EDMS 12/31 23:58 Order name: Urine Dipstick-Ancillary EDMS 01/01 00:07 Order name: Blood Culture EDMS 12/31 19:50 Order name: Accucheck; Complete Time: 20:22 ma2 12/31 19:50 Order name: Cardiac monitoring; Complete Time: 20:22 ma2 12/31 19:50 Order name: EKG - Nurse/Tech; Complete Time: 20:22 ma2 12/31 19:50 Order name: IV Saline Lock - Large Bore; Complete Time: 20:22 ma2 12/31 19:50 Order name: Labs collected and sent; Complete Time: 20:22 ma2 12/31 19:50 Order name: O2 Per Protocol; Complete Time: 20:22 ma2 12/31 19:50 Order name: O2 Sat Monitoring; Complete Time: 20:22 ma2 12/31 19:50 Order name: Urine Dipstick-Ancillary (obtain specimen); Complete Time: 21:58 ma2 Administered Medications: 20:21 Drug: Cefepime 1 grams Route: IVPB; Rate: 200 ml/hr; Infused Over: 30 mins; Site: left mg2 forearm; 01/01 01:18 Follow up: Response: No adverse reaction; IV Status: Completed infusion mg2 12/31 20:22 Drug: NS 0.9% (30 ml/kg) 30 ml/kg Route: IV; Rate: bolus; Site: left forearm; mg2 01/01 01:19 Follow up: Response: No adverse reaction; IV Status: Completed infusion mg2 12/31 20:32 Drug: Ativan 1 mg Route: IVP; Site: right hand; mg2 01/01 01:17 Follow up: Response: No adverse reaction mg2 12/31 21:03 Drug: vancoMYCIN 1 grams Route: IVPB; Infused Over: 2 hrs; Site: left forearm; mg2 01/01 01:18 Follow up: Response: No adverse reaction; IV Status: Completed infusion mg2 01:16 Not Given (Physician Discretion): Norepinephrine (4 mg/250 mL D5W) 4 mcg/min IV at mg2 calculated rate Per protocol; (final concentration is 16 microgram/mL) 01:17 Drug: Tamiflu 75 mg Route: PO; mg2 01:17 Follow up: Response: No adverse reaction mg2 Point of Care Testing: Blood Glucose: 12/31 19:45 Blood Glucose: 165 mg/dL; aa1 Ranges: Critical Glucose Levels:Adult <50 mg/dl or >400 mg/dl <40 mg/dl or >180 mg/dl Disposition: 12/31/18 23:07 Hospitalization ordered by Stefanie Sanchez for Inpatient Admission. Preliminary diagnosis are Pneumonia due to other specified bacteria, Influenza due to certain identified influenza viruses. - Bed requested for Intensive Care Unit. - Status is Inpatient Admission. mg2 - Condition is Critical. - Problem is new. - Symptoms have improved. UTI on Admission? No Signatures: Dispatcher [employer] EDOR Ada Barajas RN RN kl Parseh Perez MD MD dc2 Moiz Park RN RN mg2 Corrections: (The following items were deleted from the chart) 23:46 19:51 Chest Single View+[id number].[email or web address] ordered. [facility] EDOR 23:55 23:07 Hospitalization Ordered by Stefanie Sanchez MD for Inpatient Admission. Preliminary kl diagnosis is Pneumonia due to other specified bacteria; Influenza due to certain identified influenza viruses. Bed requested for Intensive Care Unit. Status is Inpatient Admission. Condition is Critical. Problem is new. Symptoms have improved. UTI on Admission? No. ma2 01/01 01:22 12/31 23:55 12/31/2018 23:07 Hospitalization Ordered by Stefanie Sanchez MD for Inpatient mg2 Admission. Preliminary diagnosis is Pneumonia due to other specified bacteria; Influenza due to certain identified influenza viruses. Bed requested for Intensive Care Unit. Status is Inpatient Admission. Condition is Critical. Problem is new. Symptoms have improved. UTI on Admission? No. kl
--- NOTE | 2018-12-31 23:08 | ER ---
Nurse's Notes [facility] Name: Brandin Baker Age: 63 yrs Sex: Male : 1955 Arrival Date: 12/31/2018 Time: 19:34 Bed 30 Private MD: Diagnosis: Pneumonia due to other specified bacteria;Influenza due to certain identified influenza viruses Presentation: 12/31 19:26 Note Pt arrived to ED via EMS. Initial screening assessment performed by Dr. Justin yeung upon arrival and pt taken directly to CT by EMS accompanied by charge nurse. 19:35 Presenting complaint: Presenting complaint: EMS states: patient had slurred speech and mg2 left facial drooping \T\ 1830 today. he was febrile in the [facility] T- 100.5 and tylenol and aspirin 324 mg was given in the [facility]. upon assessment by the ems he was not slurred and his baseline orientation is basically low because of alzheimers. NSR on EKG, blood pressure was low \T\ 76/58. he is recently being treated for pneumonia and influenza. 19:35 Method Of Arrival: EMS: [facility] mg2 19:35 Transition of care: patient was received [place] setting of [place] [facility]. Onset of symptoms was December 31, 2018 at 18:30. Risk Assessment: Do you want to hurt yourself or someone else? Patient reports no desire to harm self or others. Initial Sepsis Screen: Does the patient meet any 2 criteria? No. Patient's initial sepsis screen is negative. Does the patient have a suspected source of infection?. Care prior to arrival: None. 19:35 Acuity: BERNARDA 2 mg2 Triage Assessment: 21:42 General: Appears in no apparent distress. uncomfortable, Behavior is restless. Pain: mg2 Denies pain. EENT: No deficits noted. Neuro: Level of Consciousness is awake, alert, obeys commands, Oriented to person, place, situation. Cardiovascular: Capillary refill < 3 seconds Patient's skin is warm and dry. Respiratory: Reports cough that is Airway is patent Respiratory effort is even, unlabored, Respiratory pattern is regular, symmetrical. GI: No signs and/or symptoms were reported involving the gastrointestinal system. : No signs and/or symptoms were reported regarding the genitourinary system. Derm: Skin is intact, is healthy with good turgor, Skin is pink, warm \T\ dry. normal. Musculoskeletal: Circulation, motion, and sensation intact. Capillary refill < 3 seconds. Historical: - Allergies: 21:55 No Known Allergies; mg2 - Home Meds: 21:55 Aricept 10 mg Oral tab 1 tab once daily [Active]; aspirin 81 mg Oral chew 1 tab once mg2 daily [Active]; atorvastatin 20 mg Oral tab 1 tab once daily [Active]; bisacodyl 10 mg Rectal supp 1 suppository once daily [Active]; carbamazepine 100 mg Oral CM12 2 caps three times a day [Active]; Colace 50 mg Oral cap 1 cap 2 times per day [Active]; Depakote Sprinkles 125 mg Oral cpSP 3 times per day [Active]; ergocalciferol (vitamin D2) miscellaneous powd daily [Active]; finasteride 5 mg Oral tab 1 tab once daily [Active]; folic acid 1 mg Oral tab 1 tab once daily [Active]; lactulose 10 gram/15 mL (15 mL) Oral soln 15 mL 3 times per day [Active]; Lexapro 10 mg Oral tab 1 tab once daily [Active]; metoprolol tartrate 50 mg Oral tab 1 tab 2 times per day [Active]; Nuedexta 20-10 mg Oral cap 1 cap every 12 hours [Active]; Protonix 40 mg Oral TbEC 1 tab 2 times per day [Active]; Zantac 75 mg Oral tab once daily [Active]; - PMHx: 21:55 Alzheimers; Anemia; Anxiety; Bipolar disorder; CHF; constipation; Dementia; DYSPHAGIA; mg2 epilepsy; Depression; GERD; Hyperlipidemia; Hypertension; urine retention; insomnia; - Immunization history:: Flu vaccine status is unknown. - Social history:: Patient/guardian denies using alcohol, street drugs, The patient lives in a [facility], Smoking status: unknown. - Family history:: not pertinent. - Ebola Screening: : No symptoms or risks identified at this time. Screenin:00 Patient has been NPO before screening. The patient is alert, able to follow commands. mg2 The patient does not exhibit slurred or garbled speech The patient is not exhibiting difficulty speaking. The patient does not exhibit difficulty understanding words. The patient is able to swallow own secretions with no drooling or need for suction. Patient tolerated one teaspoon of water. No drooling, immediate coughing, gurgling, or clearing of the throat was noted. The patient tolerated 90mL of water. No drooling, immediate coughing, gurgling, or clearing of the throat was noted. The patient passed the bedside swallow screening. Oral medications may be given as ordered. Contact Physician for further diet orders. 21:44 Abuse screen: Denies threats or abuse. Denies injuries from another. Nutritional mg2 screening: No deficits noted. Tuberculosis screening: No symptoms or risk factors identified. Fall Risk IV access (20 points). Assessment: 21:56 Reassessment: pls see triage assessment. mg2 22:41 Reassessment: provider informed about the blood pressure. mg2 Vital Signs: 20:06 BP 80 / 56; Pulse 65; Resp 20; Temp 98.6; Pulse Ox 100% on 3 lpm NC; Weight 65.7 kg; mg2 Height 5 ft. 0 in. (152.40 cm); 21:05 BP 82 / 55; Pulse 65; Resp 18; Pulse Ox 94% on R/A; Pain 0/10; mg2 21:41 BP 115 / 68; Pulse 81; Resp 18; Pulse Ox 98% on R/A; mg2 22:44 BP 79 / 59; Pulse 81; Resp 18; Pulse Ox 93% on 2 lpm NC; mg2 03/08 00:23 BP 81 / 59; Pulse 65; Resp 18; Temp 98.2; Pulse Ox 95% on 2 lpm NC; Pain 0/10; mg2 01:00 BP 97 / 77; Pulse 68; Resp 18; Temp 98.5; Pulse Ox 98% on 2 lpm NC; Pain 0/10; mg2 03/07 20:06 Body Mass Index 28.29 (65.70 kg, 152.40 cm) mg2 03 21:41 pt is sleeping mg2 ED Course: 19:26 Patient arrived in ED. aa1 19:26 RN/HOOKING MACHINE OPERATOR escort patient out of department to CT scan with oxygen, echocardiograph tech, [facility].aa1 19:34 Moiz Park, MAUREEN is Primary Nurse. mg2 19:37 Paresh Perez MD is Attending Physician. ma2 19:50 EKG done, by ED staff, reviewed by Paresh Perez MD. aa1 19:50 Inserted saline lock: 20 gauge in right hand, using aseptic technique. Blood collected. mg2 20:40 Triage completed. mg2 21:30 Lactate Sent. jp3 21:30 Repeat lab(s) drawn. by me, sent to lab. jp3 21:44 Arm band placed on. mg2 21:44 No provider procedures requiring assistance completed. mg2 21:45 Patient has correct armband on for positive identification. Door closed. Warm blanket mg2 given. 21:45 Maintain EMS IV. Dressing intact. Good blood return noted. Site clean \T\ dry. Gauge \T\ mg 2 site: 18 \T\ L FA. 21:45 Urine collected: straight cath specimen, clear, aleida colored, Amount Returned: 100mL. jp3 21:59 Urine Microscopic Only Sent. jp3 21:59 Urine Culture Sent. jp3 23:07 Stefanie Sanchez MD is Hospitalizing Provider. mo2 01/01 01:21 Patient admitted, IV remains in place. mg2 Administered Medications: 12/31 20:21 Drug: Cefepime 1 grams Route: IVPB; Rate: 200 ml/hr; Infused Over: 30 mins; Site: left mg2 forearm; 01/01 01:18 Follow up: Response: No adverse reaction; IV Status: Completed infusion mg2 12/31 20:22 Drug: NS 0.9% (30 ml/kg) 30 ml/kg Route: IV; Rate: bolus; Site: left forearm; mg2 01/01 01:19 Follow up: Response: No adverse reaction; IV Status: Completed infusion mg2 12/31 20:32 Drug: Ativan 1 mg Route: IVP; Site: right hand; mg2 01/01 01:17 Follow up: Response: No adverse reaction mg2 12/31 21:03 Drug: vancoMYCIN 1 grams Route: IVPB; Infused Over: 2 hrs; Site: left forearm; mg2 01/01 01:18 Follow up: Response: No adverse reaction; IV Status: Completed infusion mg2 01:16 Not Given (Physician Discretion): Norepinephrine (4 mg/250 mL D5W) 4 mcg/min IV at mg2 calculated rate Per protocol; (final concentration is 16 microgram/mL) 01:17 Drug: Tamiflu 75 mg Route: PO; mg2 01:17 Follow up: Response: No adverse reaction mg2 Point of Care Testing: Blood Glucose: 12/31 19:45 Blood Glucose: 165 mg/dL; aa1 Ranges: Outcome: 23:07 Decision to Hospitalize by Provider. ma2 01/01 01:21 Admitted to ICU accompanied by nurse, accompanied by tech, via stretcher, room 8, with mg2 oxygen, on monitor, with chart, Report called to Estrella Crespo RN Condition: stable Instructed on the need for admit, Demonstrated understanding of instructions. 01:22 Patient left the ED. mg2 Signatures: Roxanne Almanza RN RN aa1 Carol Diallo Mohammad, MD MD ma2 Moiz Park RN RN mg2 Jv Fonseca jp3 Corrections: (The following items were deleted from the chart) 12/31 19:39 19:34 Patient arrived in ED. as aa1 20:40 20:31 Presenting complaint: mg2 mg2 21:56 19:20 Reassessment: patient sent to ct. code stroke called. mg2 mg2
[2018-12-31] MEDS ORDERED: OSELTAMIVIR 75 MG CAP ONE (23:36)
[2018-12-31] MEDS ORDERED: NOREPINEPHRINE 4mg/D5W 250mL 4 MG/250 ML BAG IV ONE (23:37)
[2018-12-31 23:58] LABS: Urine Blood TRACE (NEG); Urine Glucose NEGATIVE (NEG); Urine Protein 2+ (NEG); Urine pH 5.5 (5.0-7.0)
--- NOTE | 2019-01-01 00:06 | P.HP ---
Certification for Inpatient Patient admitted to: Inpatient With expected LOS: >2 Midnights Practitioner: I am a practitioner with admitting privileges, knowledge of patient current condition, hospital course, and medical plan of care. Services: Services provided to patient in accordance with Admission requirements found in Title 42 Section 412.3 of the Code of Federal Regulations Patient History Date of Service: 12/31/18 Reason for admission: sepsis History of Present Illness: Mr Baker is a 63 years old male with history of Alzheimer's dementia, resident of a local [facility], who was diagnosed with flu last week. This afternoon, he was found more lethargic, with slurred speech, fever 100.5 F. The patient was confused and agitated at arrival to ED. At arrival he was hypotensive 80/56, O2 sat 100% on 3 L. Lab work remarkable for leukocytosis with bandemia, elevated procalcitonin and normal lactate. CXR shows bilateral infiltrate consistent with pneumonia. Home medications list reviewed: Yes - Past Medical/Surgical History -: Alzheimer's disease -: CHF -: dysphagia -: HTN -: hyperlipidemia Past Surgical History: Reviewed- Non-Contributory - Family History Family History: Reviewed- Non-Contributory - Social History Smoking Status: Unknown if ever smoked Alcohol use: No CD- Drugs: No Place of Residence: [facility] Review of Systems 10-point ROS is otherwise unremarkable Physical Examination - Physical Exam General: Alert, In no apparent distress HEENT: Atraumatic, PERRLA, Mucous membr. moist/pink, EOMI, Sclerae nonicteric Neck: Supple, 2+ carotid pulse no bruit, No LAD, Without JVD or thyroid abnormality Respiratory: Normal air movement, Crackles/rales (bibasilar crackles) Cardiovascular: Normal S1 S2, No gallops Gastrointestinal: Normal bowel sounds, No tenderness Musculoskeletal: No tenderness Integumentary: No rashes Neurological: Normal strength at 5/5 x4 extr, Normal tone, Normal affect Lymphatics: No axilla or inguinal lymphadenopathy - Studies Laboratory Data (last 24 hrs) 12/31/18 19:50: PT 12.6 H, INR 1.07, APTT 23.9 L 12/31/18 19:50: WBC 14.6 H, Hgb 9.6 L, Hct 29.1 L, Plt Count 218 12/31/18 19:50: Sodium 137, Potassium 4.1, BUN 27 H, Creatinine 1.14, Glucose 136 H, Total Bilirubin 0.6, AST 46 H, ALT 34, Alkaline Phosphatase 95, Lipase 83 Microbiology Data (last 24 hrs): 12/31/18 19:50 Nasopharnyx Influenza Type A Antigen Screen - Final 12/31/18 19:50 Nasopharnyx Influenza Type B Antigen Screen - Final Assessment and Plan - Problems (Diagnosis) (1) Sepsis Current Visit: Yes Status: Acute Qualifiers: Sepsis type: sepsis due to unspecified organism Qualified Code(s): A41.9 - Sepsis, unspecified organism (2) Pneumonia Current Visit: Yes Status: Acute Qualifiers: Pneumonia type: due to unspecified organism Laterality: bilateral Lung location: unspecified part of lung Qualified Code(s): J18.9 - Pneumonia, unspecified organism (3) Alzheimer's dementia Current Visit: Yes Status: Acute Qualifiers: Alzheimer's disease onset: unspecified onset Dementia behavioral disturbance: with behavioral disturbance Qualified Code(s): G30.9 - Alzheimer' s disease, unspecified; F02.81 - Dementia in other diseases classified elsewhere with behavioral disturbance - Plan Will admit the patient to ICU due to sepsis secondary to bilateral pneumonia, post-influenza infection. Will order empiric treatment with Vancomycin and Zosyn. Blood cultures in process. - Advance Directives Does patient have a Living Will: No Does patient have a Durable POA for Healthcare: No - Code Status/Comfort Care Code Status Assessed: Yes Code Status: Full Code
[2019-01-01] MEDS ORDERED: ONDANSETRON 4 MG/2 ML VIAL IV PRN (01:35)
[2019-01-01] MEDS ORDERED: IPRATROPIUM BROM 0.5MG/2.5ML NEB PRN (01:35)
[2019-01-01] MEDS ORDERED: ALBUTEROL 2.5 MG/3 ML NEB SOL NEB PRN (01:35)
[2019-01-01] MEDS ORDERED: VANCOMYCIN 750 MG in NA CHLORIDE 0.9% 250 ML IVPB ONE (02:00)
[2019-01-01] MEDS ORDERED: PIPER/TAZO/NS 3.375gm 3.375 GM/100 ML BAG IVPB ONE (02:00)
[2019-01-01] MEDS: NA CHLORIDE 0.9% 1,000 ML IV SCH ×3 (02:00→20:47)
[2019-01-01] MEDS ORDERED: VANCOMYCIN 1 GM/VIAL ONE (02:34)
[2019-01-01] MEDS ORDERED: PIPERACIL/TAZO 3.375 GM VIAL IV ONE (03:21)
[2019-01-01] MEDS ORDERED: NA CHLORIDE 0.9% 100 ML ONE (03:22)
[2019-01-01 05:46] LABS: Absolute Lymphocytes (CBC) 1.6 K/uL (0.7-4.9); Absolute Monocytes 1.7 K/uL (0.1-1.3); Absolute Neutrophil 11.5 K/uL (1.8-8.0); Basophils % 0.2 % (0-1.3); Eosinophils % 0.6 % (0-4.4); Lymphocytes % 10.8 % (15.3-44.8); MPV 9.6 fL (7.6-11.3); Monocytes % 11.4 % (3.3-12.3); RBC Red Blood Cell Count 3.35 M/uL (4.33-5.43)
[2019-01-01 05:51] LABS: Potassium 4.1 mmol/L (3.5-5.1)
[2019-01-01] MEDS ORDERED: LORazepam 2 MG/ML VIAL IV ONE (07:44)
[2019-01-01] MEDS ORDERED: VANCOMYCIN 1 GM in NA CHLORIDE 0.9% 500 ML IVPB SCH (09:00)
[2019-01-01] MEDS ORDERED: PIPER/TAZO/NS 3.375gm 3.375 GM/100 ML BAG IVPB SCH ×4 (09:00)
[2019-01-01] MEDS: LORAZEPAM 1 MG TABLET PO SCH ×2 (09:00→20:46)
[2019-01-01] MEDS: ENOXAPARIN 40 MG/0.4 ML SQ SCH (10:01)
[2019-01-01] MEDS: FINASTERIDE 5 MG TAB PO SCH (10:30)
[2019-01-01] MEDS: DOCUSATE NA 100 MG CAP PO SCH ×2 (10:30→20:47)
[2019-01-01] MEDS: FOLIC ACID 1 MG TABLET PO SCH (10:30)
[2019-01-01] MEDS: ASPIRIN EC 81 MG TAB PO SCH (10:30)
[2019-01-01] MEDS: LACTULOSE 20 GM/30 ML UCUP PO SCH ×3 (10:31→20:46)
[2019-01-01] MEDS: DIVALPROEX DR 250 MG TAB PO SCH ×3 (10:31→20:47)
[2019-01-01] MEDS: CARBAMAZEPINE 200 MG TAB PO SCH ×3 (10:31→20:46)
[2019-01-01] MEDS: ESCITALOPRAM 20 MG TAB PO SCH (10:31)
[2019-01-01] MEDS: BUSPIRONE HCL 15 MG TABLET PO SCH ×2 (10:31→20:46)
[2019-01-01] MEDS: POLYETHYL GLY 3350 17 GM/DOSE PO SCH (10:32)
[2019-01-01] MEDS ORDERED: NA CHLORIDE 0.9% 1,000 ML IV ONE (10:51)
[2019-01-01] MEDS: ACETAMINOPHEN 500 MG TAB PO PRN (11:59)
--- NOTE | 2019-01-01 13:43 | EKG ---
Test Date: 2018-12-31 Test Time: 19:49:09 Yard Associate: JARRED MEASUREMENT RESULTS: Intervals: Rate: 67 MD: 138 QRSD: 106 QT: 418 QTc: 441 [place]: P: 60 MD: 138 QRS: 62 T: 59 INTERPRETIVE STATEMENTS: Normal sinus rhythm Nonspecific T wave abnormality Abnormal ECG No previous ECG available for comparison Electronically Signed On 01-01-19 13:42:00 HUMAN RESOURCE ADVISOR by Harry Montero
--- NOTE | 2019-01-01 15:37 | PN ---
Date of Progress Note: 01/01/2019 Code Status: Full. Subjective: The patient seemed to be agitated and received 1 mg of Ativan. He is much more relaxed now. The patient is a resident of a [facility]dc with bipolar disorder. Medications: List reviewed. Physical Examination: Vital Signs: Temperature 100.1, heart rate 86, blood pressure 95/42, respirations 17, and O2 of 99% on room air. General: Asleep, but arousable. An elderly male, ill-appearing. CV: S1, S2. Regular rate and rhythm. Peripheral pulses present. Respiratory: Diminished breath sounds. No wheezing or stridor. Gastrointestinal: Abdomen is soft, nontender, nondistended. Positive bowel sounds. Extremities: No clubbing, cyanosis, or edema. Neurologic: Nonfocal. Laboratory Data: Sodium 140, potassium 4.1, chloride 108, CO2 of 27, BUN 28, creatinine 0.95, glucose 97, calcium 8.1. WBC 15, H and H 11.5 and 35, platelets 222, neutrophils 77%. Valproic acid level is 33. Blood cultures pending. CT scan of the brain, negative for acute intracranial abnormality. The patient does have small old left frontal lobe infarct, mild chronic sinusitis, cystic encephalomalacia within the right parietal lobe likely secondary to old infarction. Assessment: A 63-year-old male with: 1. Sepsis. We will continue on broad-spectrum IV antibiotics and follow up on cultures. White count is trending up. The patient is still hypotensive. Blood pressure in the 90s systolic. We will bolus with IV fluids. 2. Pneumonia, bilateral. Continue IV antibiotics. Follow up on sputum cultures. 3. Alzheimer dementia, early onset, with behavioral disturbance. 4. History of cerebrovascular accident. CT scan of the brain shows old infarct, but no new changes. No bleed. 5. Congestive heart failure, chronic, unknown EF. 6. Essential hypertension, currently hypotensive. We will hold blood pressure medications for now. 7. Hyperlipidemia. Continue home medications. 8. Dysphagia. The patient is on a mechanically ground diet. Once the patient is more awake and alert, we will do bedside swallow study and resume diet if tolerating. 9. Deep vein thrombosis prophylaxis addressed. Plan: Will step down from ICU once blood pressure is improved. /RACHEL Voice ID: [id number] Report ID: [id number] MTDD
[2019-01-01] MEDS ORDERED: CEFEPIME/SWI 1gm 10 ML IV SCH (17:00)
[2019-01-01] MEDS ORDERED: VANCOMYCIN 1.25 GM in NA CHLORIDE 0.9% 250 ML IVPB SCH (20:00)
[2019-01-01] MEDS: DONEPEZIL HCL 5 MG TAB PO SCH (20:47)
[2019-01-01] MEDS: ATORVASTATIN 20 MG TAB PO SCH (20:47)
[2019-01-01] MEDS: GABAPENTIN 100 MG CAP PO SCH (20:47)
[2019-01-01] MEDS ORDERED: VANCOMYCIN/NS 1 gm 1 GM/250 ML BAG IV SCH (21:00)
[2019-01-02] MEDS: ACETAMINOPHEN 500 MG TAB PO PRN (05:37)
[2019-01-02] MEDS: PANTOPRAZOLE 40MG TABLET PO SCH (05:39)
[2019-01-02] MEDS: NA CHLORIDE 0.9% 1,000 ML IV SCH (06:13)
[2019-01-02 07:26] LABS: Absolute Lymphocytes (CBC) 0.6 K/uL (0.7-4.9); Absolute Monocytes 1.6 K/uL (0.1-1.3); Absolute Neutrophil 7.7 K/uL (1.8-8.0); Basophils % 0.3 % (0-1.3); Eosinophils % 0.9 % (0-4.4); Hematocrit 28.3 % (39.6-49.0); Lymphocytes % 5.6 % (15.3-44.8); MPV 9.2 fL (7.6-11.3); Monocytes % 16.2 % (3.3-12.3); RBC Red Blood Cell Count 2.77 M/uL (4.33-5.43)
[2019-01-02 07:47] LABS: ALT/SGPT 28 U/L (12-78); AST/SGOT 34 U/L (15-37); Albumin 1.8 g/dL (3.4-5.0); Alkaline Phosphatase 109 U/L (45-117); BUN Blood Urea Nitrogen 19 mg/dL (7-18); Bicarbonate 25 mmol/L (21-32); Bilirubin Total 0.5 mg/dL (0.2-1.0); Glucose Level 104 mg/dL (74-106); Potassium 3.5 mmol/L (3.5-5.1); Protein, Total 5.8 g/dL (6.4-8.2); Sodium Level 144 mmol/L (136-145)
[2019-01-02] MEDS ORDERED: POTASSIUM CL SA 10 MEQ TAB PO ONE (08:11)
[2019-01-02] MEDS: POLYETHYL GLY 3350 17 GM/DOSE PO SCH (09:06)
[2019-01-02] MEDS: ESCITALOPRAM 20 MG TAB PO SCH (09:08)
[2019-01-02] MEDS: FOLIC ACID 1 MG TABLET PO SCH (09:08)
[2019-01-02] MEDS: DOCUSATE NA 100 MG CAP PO SCH ×2 (09:08→20:49)
[2019-01-02] MEDS: FINASTERIDE 5 MG TAB PO SCH (09:09)
[2019-01-02] MEDS: ASPIRIN EC 81 MG TAB PO SCH (09:09)
[2019-01-02] MEDS: BUSPIRONE HCL 15 MG TABLET PO SCH ×2 (09:10→20:49)
[2019-01-02] MEDS: CARBAMAZEPINE 200 MG TAB PO SCH ×3 (09:10→20:50)
[2019-01-02] MEDS: DIVALPROEX DR 250 MG TAB PO SCH ×3 (09:10→20:49)
[2019-01-02] MEDS: ENOXAPARIN 40 MG/0.4 ML SQ SCH (09:11)
[2019-01-02] MEDS: LACTULOSE 20 GM/30 ML UCUP PO SCH ×3 (09:46→20:48)
[2019-01-02] MEDS: LORAZEPAM 1 MG TABLET PO SCH ×2 (09:46→20:50)
[2019-01-02] MEDS: CEFEPIME/SWI 1gm 10 ML IV SCH ×2 (10:46→16:29)
[2019-01-02] MEDS: TRAMADOL HCL 50 MG TAB PO PRN ×2 (10:50→16:27)
[2019-01-02] MEDS ORDERED: CEFEPIME/SWI 1gm 1 ML IV SCH (11:00)
--- NOTE | 2019-01-02 12:31 | P.PN ---
Subjective Date of Service: 01/02/19 Chief Complaint: sepsis Patient seen and examined at bedside with RN. Chart reviewed. Case discussed with patient. Patient this morning seems to be lethargic. Unable to cough for me at this time. Easy arousable at this time. Overnight no complaints to offer. Review of Systems 10-point ROS is otherwise unremarkable Physical Examination - Vital Signs Temperature: 98.5 F Blood Pressure: 107/61 Pulse: 74 Respirations: 16 Pulse Ox (%): 94 - Physical Exam General: In no apparent distress, Demented, Other (Lethargy but easily arousable ) HEENT: Atraumatic, PERRLA, EOMI Neck: Supple, JVD not distended Respiratory: Normal air movement, Crackles/rales, Rhonchi/gurgles Cardiovascular: Regular rate/rhythm, Normal S1 S2 Gastrointestinal: Normal bowel sounds, No tenderness Musculoskeletal: No tenderness Integumentary: No rashes Neurological: Normal speech, Normal tone, Normal affect Lymphatics: No axilla or inguinal lymphadenopathy - Studies Microbiology Data (last 24 hrs): 12/31/18 20:15 Blood - Blood Anaerobic Blood Culture - Final 12/31/18 19:50 Blood - Blood Anaerobic Blood Culture - Final Medications List Reviewed: Yes Assessment And Plan - Current Problems (Diagnosis) (1) Sepsis Current Visit: Yes Status: Acute Plan: Sepsis most likely secondary to bilateral pneumonia - patient recently treated for influenza. - We will continue on broad-spectrum IV antibiotics and follow up on cultures. - leukocytosis improving today. -will continue to monitor patient here closely Qualifiers: Sepsis type: sepsis due to unspecified organism Qualified Code(s): A41.9 - Sepsis, unspecified organism (2) Pneumonia Current Visit: Yes Status: Acute Plan: Bilateral pneumonia post influenza -will continue on IV cefepime at this time. -follow up on sputum and blood cultures at this Qualifiers: Pneumonia type: due to unspecified organism Laterality: bilateral Lung location: unspecified part of lung Qualified Code(s): J18.9 - Pneumonia, unspecified organism (3) Alzheimer's dementia Current Visit: Yes Status: Chronic Qualifiers: Alzheimer's disease onset: unspecified onset Dementia behavioral disturbance: with behavioral disturbance Qualified Code(s): G30.9 - Alzheimer' s disease, unspecified; F02.81 - Dementia in other diseases classified elsewhere with behavioral disturbance (4) Hypertension Current Visit: Yes Status: Chronic Qualifiers: Hypertension type: essential hypertension Qualified Code(s): I10 - Essential (primary) hypertension (5) Hyperlipidemia Current Visit: Yes Status: Chronic Qualifiers: Hyperlipidemia type: mixed hyperlipidemia Qualified Code(s): E78.2 - Mixed hyperlipidemia (6) Congestive heart failure Current Visit: Yes Status: Chronic Qualifiers: Heart failure type: diastolic Heart failure chronicity: chronic Qualified Code(s): I50.32 - Chronic diastolic (congestive) heart failure (7) Dysphagia Current Visit: Yes Status: Chronic Qualifiers: Dysphagia type: oropharyngeal phase Qualified Code(s): R13.12 - Dysphagia, oropharyngeal phase - Plan Currently awaiting clinical improvement at this time. Will continue with broad- spectrum in the biotic until cultures results. Patient to be discharged back to alf once able to deescalate the antibiotics and patient doing better. Discharge Plan: Home Plan to discharge in: 48 Hours - Code Status/Comfort Care Code Status Assessed: Yes Critical Care: No
[2019-01-02] MEDS ORDERED: CEFEPIME 1 GM/VIAL IV SCH ×2 (17:00→21:00)
[2019-01-02] MEDS ORDERED: TRAMADOL HCL 50 MG TAB PO ONE (18:55)
[2019-01-02] MEDS: GABAPENTIN 100 MG CAP PO SCH (20:49)
[2019-01-02] MEDS: ATORVASTATIN 20 MG TAB PO SCH (20:49)
[2019-01-02] MEDS: DONEPEZIL HCL 5 MG TAB PO SCH (20:50)
[2019-01-03] MEDS: CEFEPIME/SWI 1gm 10 ML IV SCH ×3 (00:51→17:00)
[2019-01-03] MEDS: PANTOPRAZOLE 40MG TABLET PO SCH (06:28)
[2019-01-03 07:07] LABS: BUN Blood Urea Nitrogen 14 mg/dL (7-18); Bicarbonate 27 mmol/L (21-32); Glucose Level 99 mg/dL (74-106); Potassium 3.7 mmol/L (3.5-5.1); Sodium Level 140 mmol/L (136-145)
[2019-01-03] MEDS ORDERED: POTASSIUM 25 MEQ EFFERV TAB PO ONE (09:00)
[2019-01-03] MEDS: LORAZEPAM 1 MG TABLET PO SCH ×2 (10:21→20:58)
[2019-01-03] MEDS: DOCUSATE NA 100 MG CAP PO SCH ×2 (10:21→20:58)
[2019-01-03] MEDS: LACTULOSE 20 GM/30 ML UCUP PO SCH ×3 (10:21→20:59)
[2019-01-03] MEDS: BUSPIRONE HCL 15 MG TABLET PO SCH ×2 (10:22→20:58)
[2019-01-03] MEDS: ESCITALOPRAM 20 MG TAB PO SCH (10:23)
[2019-01-03] MEDS: FOLIC ACID 1 MG TABLET PO SCH (10:23)
[2019-01-03] MEDS: FINASTERIDE 5 MG TAB PO SCH (10:23)
[2019-01-03] MEDS: CARBAMAZEPINE 200 MG TAB PO SCH ×3 (10:24→20:58)
[2019-01-03] MEDS: ASPIRIN EC 81 MG TAB PO SCH (10:24)
[2019-01-03] MEDS: DIVALPROEX DR 250 MG TAB PO SCH ×3 (10:24→20:58)
[2019-01-03] MEDS: ENOXAPARIN 40 MG/0.4 ML SQ SCH (10:25)
[2019-01-03] MEDS: POLYETHYL GLY 3350 17 GM/DOSE PO SCH (10:25)
--- NOTE | 2019-01-03 11:00 | P.PN ---
Subjective Date of Service: 01/03/19 Chief Complaint: sepsis Patient seen and examined at bedside with RN. Chart reviewed. Case discussed with patient. Patient this morning doing well overall. Still having audible gurgling. Coughing this Am. Overnight no complaints to offer. Review of Systems 10-point ROS is otherwise unremarkable Physical Examination - Vital Signs Temperature: 99.6 F Blood Pressure: 144/72 Pulse: 109 Respirations: 16 Pulse Ox (%): 94 - Physical Exam General: Alert, In no apparent distress, Cachectic HEENT: Atraumatic, PERRLA, EOMI Neck: Supple, JVD not distended Respiratory: Normal air movement, Expiratory wheezes, Inspiratory wheezes, Rhonchi/gurgles Cardiovascular: Regular rate/rhythm, Normal S1 S2 Gastrointestinal: Normal bowel sounds, No tenderness Musculoskeletal: No tenderness Integumentary: No rashes Neurological: Normal speech, Normal tone, Normal affect Lymphatics: No axilla or inguinal lymphadenopathy - Studies Microbiology Data (last 24 hrs): 12/31/18 23:10 Catheterized Urine [place] Count - Final 12/31/18 23:10 Catheterized Urine - Final Medications List Reviewed: Yes Assessment And Plan - Current Problems (Diagnosis) (1) Sepsis Current Visit: Yes Status: Acute Plan: Sepsis most likely secondary to bilateral pneumonia. Most Likely post influenza PNA - patient recently treated for influenza 1 week ago. - We will continue on broad-spectrum IV antibiotics and follow up on cultures. - blood culture negative thus far. respiratory to collect Sputum culture today - will continue to monitor patient here closely Qualifiers: Sepsis type: sepsis due to unspecified organism Qualified Code(s): A41.9 - Sepsis, unspecified organism (2) Pneumonia Current Visit: Yes Status: Acute Plan: Bilateral pneumonia post influenza -will continue on IV cefepime at this time. -follow up on sputum and blood cultures at this time. Qualifiers: Pneumonia type: due to unspecified organism Laterality: bilateral Lung location: unspecified part of lung Qualified Code(s): J18.9 - Pneumonia, unspecified organism (3) Alzheimer's dementia Current Visit: Yes Status: Chronic Qualifiers: Alzheimer's disease onset: unspecified onset Dementia behavioral disturbance: with behavioral disturbance Qualified Code(s): G30.9 - Alzheimer' s disease, unspecified; F02.81 - Dementia in other diseases classified elsewhere with behavioral disturbance (4) Hypertension Current Visit: Yes Status: Chronic Qualifiers: Hypertension type: essential hypertension Qualified Code(s): I10 - Essential (primary) hypertension (5) Hyperlipidemia Current Visit: Yes Status: Chronic Qualifiers: Hyperlipidemia type: mixed hyperlipidemia Qualified Code(s): E78.2 - Mixed hyperlipidemia (6) Congestive heart failure Current Visit: Yes Status: Chronic Qualifiers: Heart failure type: diastolic Heart failure chronicity: chronic Qualified Code(s): I50.32 - Chronic diastolic (congestive) heart failure (7) Dysphagia Current Visit: Yes Status: Chronic Qualifiers: Dysphagia type: oropharyngeal phase Qualified Code(s): R13.12 - Dysphagia, oropharyngeal phase - Plan Currently awaiting clinical improvement at this time. Will continue with broad- spectrum Abx until sputum cultures results. Patient to be discharged back to long term once able to deescalate the antibiotics and patient doing better. Discharge Plan: Detention Plan to discharge in: 48 Hours - Code Status/Comfort Care Code Status Assessed: Yes Critical Care: No
[2019-01-03] MEDS: ATORVASTATIN 20 MG TAB PO SCH (20:58)
[2019-01-03] MEDS: DONEPEZIL HCL 5 MG TAB PO SCH (20:58)
[2019-01-03] MEDS: GABAPENTIN 100 MG CAP PO SCH (20:58)
[2019-01-04] MEDS: CEFEPIME/SWI 1gm 10 ML IV SCH ×3 (01:25→16:56)
[2019-01-04] MEDS: PANTOPRAZOLE 40MG TABLET PO SCH (05:54)
[2019-01-04 06:11] LABS: Absolute Lymphocytes (CBC) 1.1 K/uL (0.7-4.9); Absolute Monocytes 1.1 K/uL (0.1-1.3); Basophils % 0.1 % (0-1.3); Eosinophils % 2.2 % (0-4.4); Hematocrit 29.4 % (39.6-49.0); Lymphocytes % 9.6 % (15.3-44.8); MPV 8.9 fL (7.6-11.3); RBC Red Blood Cell Count 2.92 M/uL (4.33-5.43)
[2019-01-04 06:22] LABS: ALT/SGPT 33 U/L (12-78); AST/SGOT 33 U/L (15-37); Albumin 1.9 g/dL (3.4-5.0); Alkaline Phosphatase 151 U/L (45-117); BUN Blood Urea Nitrogen 11 mg/dL (7-18); Bicarbonate 27 mmol/L (21-32); Bilirubin Total 0.6 mg/dL (0.2-1.0); Glucose Level 91 mg/dL (74-106); Magnesium 1.9 mg/dL (1.8-2.4); Protein, Total 6.2 g/dL (6.4-8.2); Sodium Level 139 mmol/L (136-145)
[2019-01-04] MEDS: TRAMADOL HCL 50 MG TAB PO PRN ×2 (06:48→21:29)
[2019-01-04] MEDS: LACTULOSE 20 GM/30 ML UCUP PO SCH ×3 (09:31→20:53)
[2019-01-04] MEDS: ASPIRIN EC 81 MG TAB PO SCH (09:31)
[2019-01-04] MEDS: FINASTERIDE 5 MG TAB PO SCH (09:31)
[2019-01-04] MEDS: FOLIC ACID 1 MG TABLET PO SCH (09:31)
[2019-01-04] MEDS: ESCITALOPRAM 20 MG TAB PO SCH (09:32)
[2019-01-04] MEDS: DOCUSATE NA 100 MG CAP PO SCH ×2 (09:32→20:53)
[2019-01-04] MEDS: CARBAMAZEPINE 200 MG TAB PO SCH ×3 (09:32→20:53)
[2019-01-04] MEDS: BUSPIRONE HCL 15 MG TABLET PO SCH ×2 (09:33→20:52)
[2019-01-04] MEDS: POLYETHYL GLY 3350 17 GM/DOSE PO SCH (09:33)
[2019-01-04] MEDS: DIVALPROEX DR 250 MG TAB PO SCH ×3 (09:33→21:29)
[2019-01-04] MEDS: ENOXAPARIN 40 MG/0.4 ML SQ SCH (09:34)
[2019-01-04] MEDS: LORAZEPAM 1 MG TABLET PO SCH ×2 (10:08→20:52)
[2019-01-04] MEDS: ACETAMINOPHEN 500 MG TAB PO PRN (10:15)
--- NOTE | 2019-01-04 13:32 | P.PN ---
Subjective Date of Service: 01/04/19 Chief Complaint: sepsis Patient seen and examined at bedside with RN. Chart reviewed. Case discussed with patient. Patient this morning doing well overall. Feeling better this AM. Able to cough and pullup sputum now. Overnight no complaints to offer. Review of Systems 10-point ROS is otherwise unremarkable Physical Examination - Vital Signs Temperature: 98.6 F Blood Pressure: 132/88 Pulse: 83 Respirations: 18 Pulse Ox (%): 91 - Physical Exam General: Alert, In no apparent distress, Oriented x2 HEENT: Atraumatic, PERRLA, EOMI Neck: Supple, JVD not distended Respiratory: Normal air movement, Rhonchi/gurgles Cardiovascular: Regular rate/rhythm, Normal S1 S2 Gastrointestinal: Normal bowel sounds, No tenderness Musculoskeletal: No tenderness Integumentary: No rashes Neurological: Normal speech, Normal tone, Normal affect Lymphatics: No axilla or inguinal lymphadenopathy - Studies Medications List Reviewed: Yes Assessment And Plan - Current Problems (Diagnosis) (1) Sepsis Current Visit: Yes Status: Acute Plan: Sepsis most likely secondary to bilateral pneumonia. Most Likely post influenza PNA - patient recently treated for influenza 1 week ago. - We will continue on broad-spectrum IV antibiotics till cultures results. - blood culture negative thus far. respiratory collected Sputum culture today - will continue to monitor patient here closely Qualifiers: Sepsis type: sepsis due to unspecified organism Qualified Code(s): A41.9 - Sepsis, unspecified organism (2) Pneumonia Current Visit: Yes Status: Acute Plan: Bilateral pneumonia post influenza -will continue on IV cefepime at this time. -follow up on sputum and blood cultures at this time. Qualifiers: Pneumonia type: due to unspecified organism Laterality: bilateral Lung location: unspecified part of lung Qualified Code(s): J18.9 - Pneumonia, unspecified organism (3) Alzheimer's dementia Current Visit: Yes Status: Chronic Qualifiers: Alzheimer's disease onset: unspecified onset Dementia behavioral disturbance: with behavioral disturbance Qualified Code(s): G30.9 - Alzheimer' s disease, unspecified; F02.81 - Dementia in other diseases classified elsewhere with behavioral disturbance (4) Hypertension Current Visit: Yes Status: Chronic Qualifiers: Hypertension type: essential hypertension Qualified Code(s): I10 - Essential (primary) hypertension (5) Hyperlipidemia Current Visit: Yes Status: Chronic Qualifiers: Hyperlipidemia type: mixed hyperlipidemia Qualified Code(s): E78.2 - Mixed hyperlipidemia (6) Congestive heart failure Current Visit: Yes Status: Chronic Qualifiers: Heart failure type: diastolic Heart failure chronicity: chronic Qualified Code(s): I50.32 - Chronic diastolic (congestive) heart failure (7) Dysphagia Current Visit: Yes Status: Chronic Qualifiers: Dysphagia type: oropharyngeal phase Qualified Code(s): R13.12 - Dysphagia, oropharyngeal phase - Plan Currently awaiting clinical improvement at this time. Will continue with broad- spectrum Abx until sputum cultures results. Patient to be discharged back to halfway once able to deescalate the antibiotics and patient doing better. Discharge Plan: Custodial Plan to discharge in: 48 Hours - Code Status/Comfort Care Code Status Assessed: Yes Critical Care: No
[2019-01-04] MEDS: GABAPENTIN 100 MG CAP PO SCH (20:52)
[2019-01-04] MEDS: ATORVASTATIN 20 MG TAB PO SCH (20:53)
[2019-01-04] MEDS: DONEPEZIL HCL 5 MG TAB PO SCH (20:53)
[2019-01-05] MEDS: CEFEPIME/SWI 1gm 10 ML IV SCH ×3 (00:30→17:00)
[2019-01-05] MEDS: PANTOPRAZOLE 40MG TABLET PO SCH ×2 (06:04→06:07)
[2019-01-05 07:36] LABS: Absolute Lymphocytes (CBC) 1.5 K/uL (0.7-4.9); Absolute Monocytes 1.8 K/uL (0.1-1.3); Absolute Neutrophil 13.2 K/uL (1.8-8.0); Basophils % 0.1 % (0-1.3); Eosinophils % 2.8 % (0-4.4); Hematocrit 32.1 % (39.6-49.0); Lymphocytes % 8.8 % (15.3-44.8); MPV 10.2 fL (7.6-11.3); Monocytes % 10.7 % (3.3-12.3); RBC Red Blood Cell Count 3.16 M/uL (4.33-5.43)
[2019-01-05 07:45] LABS: ALT/SGPT 25 U/L (12-78); AST/SGOT 28 U/L (15-37); Albumin 1.9 g/dL (3.4-5.0); Alkaline Phosphatase 117 U/L (45-117); BUN Blood Urea Nitrogen 12 mg/dL (7-18); Bicarbonate 25 mmol/L (21-32); Bilirubin Total 0.4 mg/dL (0.2-1.0); Glucose Level 92 mg/dL (74-106); Potassium 4.6 mmol/L (3.5-5.1); Protein, Total 6.2 g/dL (6.4-8.2); Sodium Level 137 mmol/L (136-145)
[2019-01-05 08:39] LABS: Blood Morphology Comment NOT SEEN (NOT SEEN); Platelet Estimate ADEQ; Toxic Granulation 2+
[2019-01-05] MEDS: DIVALPROEX DR 250 MG TAB PO SCH ×3 (09:00→20:05)
[2019-01-05] MEDS: TRAMADOL HCL 50 MG TAB PO PRN (09:57)
[2019-01-05] MEDS: POLYETHYL GLY 3350 17 GM/DOSE PO SCH (09:58)
[2019-01-05] MEDS: LACTULOSE 20 GM/30 ML UCUP PO SCH ×3 (09:58→20:01)
[2019-01-05] MEDS: CARBAMAZEPINE 200 MG TAB PO SCH ×3 (09:59→20:02)
[2019-01-05] MEDS: ESCITALOPRAM 20 MG TAB PO SCH (09:59)
[2019-01-05] MEDS: ENOXAPARIN 40 MG/0.4 ML SQ SCH (09:59)
[2019-01-05] MEDS: DOCUSATE NA 100 MG CAP PO SCH ×2 (09:59→20:02)
[2019-01-05] MEDS: FOLIC ACID 1 MG TABLET PO SCH (09:59)
[2019-01-05] MEDS: LORAZEPAM 1 MG TABLET PO SCH ×2 (10:00→20:05)
[2019-01-05] MEDS: BUSPIRONE HCL 15 MG TABLET PO SCH ×2 (10:00→20:05)
[2019-01-05] MEDS: FINASTERIDE 5 MG TAB PO SCH (10:00)
[2019-01-05] MEDS: ASPIRIN EC 81 MG TAB PO SCH (10:00)
[2019-01-05] MEDS: ACETAMINOPHEN 500 MG TAB PO PRN (11:08)
--- NOTE | 2019-01-05 15:01 | RAD REPORT ---
EXAM DESCRIPTION: RAD - Chest Single View - 01/05/2019 2:48 pm CLINICAL HISTORY: Shortness of breath, elevated of UVC COMPARISON: December 31 TECHNIQUE: AP portable chest image was obtained 1441 hours . FINDINGS: Lung volumes are low. Alveolar opacification has developed in the right lung base progress kael from the December 31 study. Patchy medial left base opacification has not changed. Left-sided Port-A- Cath remains in place. Heart size is normal range. No vascular engorgement. No pneumothorax or large pleural effusion. No acute bone findings seen. 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 No acute aortic findings suspected. IMPRESSION: New or progressive right lung base pneumonia.
--- NOTE | 2019-01-05 17:19 | P.PN ---
Subjective Date of Service: 01/05/19 Chief Complaint: sepsis Patient seen and examined at bedside with RN. Chart reviewed. Case discussed with patient. This AM pt appears to be confused and asking when will he be doing to NH. no fever or chills noted overnight. Elevated WBC today. Review of Systems 10-point ROS is otherwise unremarkable Physical Examination - Vital Signs Temperature: 97.7 F Blood Pressure: 117/77 Pulse: 66 Respirations: 16 Pulse Ox (%): 99 - Physical Exam General: Alert, In no apparent distress, Oriented x2, Confused HEENT: Atraumatic, PERRLA, EOMI Neck: Supple, JVD not distended Respiratory: Normal air movement, Crackles/rales Cardiovascular: Regular rate/rhythm, Normal S1 S2 Gastrointestinal: Normal bowel sounds, No tenderness Musculoskeletal: No tenderness Integumentary: No rashes Neurological: Normal speech, Normal tone, Normal affect Lymphatics: No axilla or inguinal lymphadenopathy - Studies Medications List Reviewed: Yes Assessment And Plan - Current Problems (Diagnosis) (1) Sepsis Current Visit: Yes Status: Acute Plan: Sepsis most likely secondary to bilateral pneumonia. Most Likely post influenza PNA - patient recently treated for influenza 1 week ago. - Switched to IV zosyn today. WBC elevated today. - blood culture negative thus far. respiratory collected Sputum culture pending at this time - will continue to monitor patient here closely Qualifiers: Sepsis type: sepsis due to unspecified organism Qualified Code(s): A41.9 - Sepsis, unspecified organism (2) Pneumonia Current Visit: Yes Status: Acute Plan: Bilateral pneumonia post influenza -switched to IV zosyn at this time. -follow up on sputum and blood cultures at this time. Qualifiers: Pneumonia type: due to unspecified organism Laterality: bilateral Lung location: unspecified part of lung Qualified Code(s): J18.9 - Pneumonia, unspecified organism (3) Alzheimer's dementia Current Visit: Yes Status: Chronic Qualifiers: Alzheimer's disease onset: unspecified onset Dementia behavioral disturbance: with behavioral disturbance Qualified Code(s): G30.9 - Alzheimer' s disease, unspecified; F02.81 - Dementia in other diseases classified elsewhere with behavioral disturbance (4) Hypertension Current Visit: Yes Status: Chronic Qualifiers: Hypertension type: essential hypertension Qualified Code(s): I10 - Essential (primary) hypertension (5) Hyperlipidemia Current Visit: Yes Status: Chronic Qualifiers: Hyperlipidemia type: mixed hyperlipidemia Qualified Code(s): E78.2 - Mixed hyperlipidemia (6) Congestive heart failure Current Visit: Yes Status: Chronic Qualifiers: Heart failure type: diastolic Heart failure chronicity: chronic Qualified Code(s): I50.32 - Chronic diastolic (congestive) heart failure (7) Dysphagia Current Visit: Yes Status: Chronic Qualifiers: Dysphagia type: oropharyngeal phase Qualified Code(s): R13.12 - Dysphagia, oropharyngeal phase (8) Dislocation of right shoulder joint Current Visit: Yes Status: Acute Plan: Dr Barton consulted. Appreciated Reccs -Pt refused MRI today Qualifiers: Encounter type: subsequent encounter Qualified Code(s): S43.004D - Unspecified dislocation of right shoulder joint, subsequent encounter - Plan Currently awaiting clinical improvement at this time. Will continue with IV zosyn until sputum cultures results. Patient to be discharged back to care home once able to deescalate the antibiotics and patient doing better.
[2019-01-05] MEDS: PIPER/TAZO/NS 2.25gm 2.25 GM/50 ML BAG IVPB SCH (18:13)
[2019-01-05] MEDS: GABAPENTIN 100 MG CAP PO SCH (20:02)
[2019-01-05] MEDS: DONEPEZIL HCL 5 MG TAB PO SCH (20:02)
[2019-01-05] MEDS: ATORVASTATIN 20 MG TAB PO SCH (20:02)
[2019-01-06] MEDS: PIPER/TAZO/NS 2.25gm 2.25 GM/50 ML BAG IVPB SCH ×3 (00:23→16:48)
[2019-01-06] MEDS: TRAMADOL HCL 50 MG TAB PO PRN ×2 (00:23→09:17)
[2019-01-06 04:15] LABS: Absolute Monocytes 1.4 K/uL (0.1-1.3); Absolute Neutrophil 6.9 K/uL (1.8-8.0); Basophils % 0.8 % (0-1.3); Eosinophils % 3.3 % (0-4.4); Hematocrit 29.3 % (39.6-49.0); Lymphocytes % 10.1 % (15.3-44.8); MPV 9.2 fL (7.6-11.3); Monocytes % 14.6 % (3.3-12.3); RBC Red Blood Cell Count 2.91 M/uL (4.33-5.43)
[2019-01-06 04:29] LABS: ALT/SGPT 25 U/L (12-78); AST/SGOT 32 U/L (15-37); Albumin 1.9 g/dL (3.4-5.0); Alkaline Phosphatase 123 U/L (45-117); BUN Blood Urea Nitrogen 11 mg/dL (7-18); Bicarbonate 30 mmol/L (21-32); Bilirubin Total 0.3 mg/dL (0.2-1.0); Glucose Level 88 mg/dL (74-106); Potassium 3.9 mmol/L (3.5-5.1); Protein, Total 6.1 g/dL (6.4-8.2); Sodium Level 137 mmol/L (136-145)
[2019-01-06] MEDS ORDERED: POTASSIUM 25 MEQ EFFERV TAB PO ONE (04:31)
[2019-01-06] MEDS: PANTOPRAZOLE 40MG TABLET PO SCH (05:23)
[2019-01-06] MEDS: DIVALPROEX DR 250 MG TAB PO SCH ×2 (09:18→13:54)
[2019-01-06] MEDS: BUSPIRONE HCL 15 MG TABLET PO SCH (09:18)
[2019-01-06] MEDS: POLYETHYL GLY 3350 17 GM/DOSE PO SCH (09:18)
[2019-01-06] MEDS: LACTULOSE 20 GM/30 ML UCUP PO SCH ×2 (09:19→13:54)
[2019-01-06] MEDS: FOLIC ACID 1 MG TABLET PO SCH (09:19)
[2019-01-06] MEDS: FINASTERIDE 5 MG TAB PO SCH (09:19)
[2019-01-06] MEDS: CARBAMAZEPINE 200 MG TAB PO SCH ×2 (09:19→13:54)
[2019-01-06] MEDS: ENOXAPARIN 40 MG/0.4 ML SQ SCH (09:19)
[2019-01-06] MEDS: LORAZEPAM 1 MG TABLET PO SCH (09:19)
[2019-01-06] MEDS: ASPIRIN EC 81 MG TAB PO SCH (09:20)
[2019-01-06] MEDS: ESCITALOPRAM 20 MG TAB PO SCH (09:20)
[2019-01-06] MEDS: DOCUSATE NA 100 MG CAP PO SCH (09:20)
--- NOTE | 2019-01-06 14:12 | P.CNS ---
Date of Consult: 01/06/19 (Consulted evening 01/05/19) Reason for Consult: chronic dislocation R shoulder Requesting Physician: Praveena Nascimento Chief Complaint: sepsis, History of Present Illness: This 63-year-old male was admitted for treatment of sepsis 12/31/18 in consultation for evaluation of the right shoulder was requested 01/05/19. The patient was previously in the emergency department on 11/19/18 and noted by x- ray to have a dislocated right shoulder. The family gave history of 6-7 years of recurrent dislocations of the right shoulder and the radiologist mentioned x- ray changes that suggested likely recurrence of dislocations in the past. The shoulder dislocate was reported as reduced and the patient was returned to senior living for outpatient care. The patient was appointed to my office for outpatient follow-up. The first appointment was missed as were 3 additional visits that were rescheduled in November. Chest x-rays taken 12/31/18 & 01/05/19 have demonstrated the right shoulder is inferiorly dislocated. Allergies No Known Allergies Allergy (Unverified 01/01/19 00:19) Home Medications: Acetaminophen [Tylenol Extra Strength] 500 mg PO Q6HP PRN 01/01/19 Acetaminophen with Codeine [Tylenol with Codeine #3 Tablet] 1 each PO TID Aspirin [Aspirin EC 81 MG] 81 mg PO DAILY 01/01/19 Atorvastatin Calcium [Lipitor*] 20 mg PO BEDTIME 01/01/19 Bisacodyl [Dulcolax*] 10 mg RC DAILYPRN PRN 01/01/19 Buspirone HCl [Buspar] 15 mg PO BID 01/01/19 Carbamazepine 2 tab PO TID 01/01/19 Divalproex Sodium [Depakote] 250 mg PO TID 01/01/19 Docusate [Colace Cap*] 100 mg PO BID 01/01/19 Donepezil [Aricept*] 5 mg PO BEDTIME 01/01/19 Escitalopram Oxalate [Lexapro] 10 mg PO DAILY 01/01/19 Finasteride [Proscar*] 5 mg PO DAILY 01/01/19 Folic Acid 1 mg PO DAILY 01/01/19 Gabapentin [Neurontin*] 100 mg PO BEDTIME 01/01/19 LORazepam [Ativan*] 1 mg PO BID 01/01/19 Lactulose 15 ml PO TID 01/01/19 Metoprolol Tartrate [Lopressor*] 50 mg PO BID 01/01/19 Multivitamin [Daily Multivitamin] 1 each PO DAILY 01/01/19 Omeprazole [Prilosec] 40 mg PO DAILY 01/01/19 Polyethylene Glycol 3350 [Miralax] 17 gm PO DAILY 01/01/19 Vit A,C & E/Lutein/Minerals [Ocuvite Tablet] 1 tab PO BID 01/01/19 guaiFENesin [Robitussin 100MG/5ML*] 100 mg PO BIDP PRN 01/01/19 Amox/Clavulanate [Augmentin 875-125 Tab] 875 mg PO BID #28 tab 01/06/19 - Past Medical/Surgical History Past Medical History: Unable to obtain (Patient treated for Alzheimer's, poor historian and no family present) -: Alzheimer's disease -: CHF -: dysphagia -: HTN -: hyperlipidemia Past Surgical History: Unable to obtain - Social History Smoking Status: Unknown if ever smoked Alcohol use: No CD- Drugs: No Place of Residence: [facility] Review of Systems is unable to be obtained Physical Examination Temp Pulse Resp BP Pulse Ox 98.0 F 77 16 129/70 96 01/06/19 12:00 01/06/19 12:00 01/06/19 12:00 01/06/19 12:00 01/06/19 12:00 General: In no apparent distress, Cooperative, Confused HEENT: Atraumatic, Normocephalic Neck: Supple Respiratory: Normal air movement Cardiovascular: Normal pulses (radial and ulnar pulses present and strong) Capillary refill: Brisk Musculoskeletal: No contractures, Tenderness (Despite the R shoulder appearing full and normally aligned without the "empty sleeve" over the glenohumeral joint area, the patient gives signs of discomfort with each effort to generate passive circumduction motion or movement of the upper arm.) Neurological: Sensation intact (This patient indicates sensation is intact across median and ulnar and radial nerve distributions. Is not clear if the patient is giving accurate responses or simply affirming automatically. The hand is swollen with an IV and thick wrap in the area to protect the IV. The hand is in o'clock position and the patient can twitch fingers and slightly close fingertips. Wrist movement is limited to slight dorsiflexion. The patient can't or will not extend or flex the elbow and cannot raise the arm. The arm is lifted and released only to fall to the pillow below.) External genitalia: Deferred Rectal: Deferred Imagings Data: RIGHT SHOULDER ,2 V (11/19/18) [facility] IMPRESSION: Anterior dislocation of the right humeral head. The dislocation is new from May 2018 imaging. There are changes to the humeral head and glenoid that would support chronic or recurring dislocation. CHEST X-RAY (01/05/19) [facility] FINDINGS: Lung volumes are low. Alveolar opacification has developed in the right lung base progressive from the December 31 study. Patchy medial left base opacification has not changed. Left-sided Port-A-Cath remains in place. Heart size is normal range. No vascular engorgement. No pneumothorax or large pleural effusion. No acute bone findings seen. 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 No acute aortic findings suspected. - Problems (1) Dislocation of right shoulder joint Current Visit: Yes Status: Acute Plan: THIS PATIENT WILL BE GIVEN ARM SLING SUPPORT FOR COMFORT WITH THIS CHRONICALLY DISLOCATED RIGHT SHOULDER. THERE IS RATHER PROFOUND NEUROLOGIC DEFICIT RUE DUE TO POSSIBLE BRACHIAL PLEXUS INJURY ONSET OF WHICH IS UNKNOWN. WITH HISTORY OF RECURRING ANTERIOR DISLOCATIONS OVER THE PAST 6 OR 7 YEARS, IT'S LIKELY THAT THERE IS AN EXTENSIVE ROTATOR CUFF TEAR OR GLENOID DAMAGE THAT WOULD REQUIRE REPAIR TO STABILIZE HIS SHOULDER. WITH ALZHEIMER'S DEMENTIA REQUIRING [facility] IT IS UNLIKELY THAT THE PATIENT WOULD BE ABLE TO COMPLY AND PARTICIPATE IN PROTECTION OF THE OPERATIVE SITE AND COMPLIANCE WITH REHABILITATION. DISCHARGE TO [facility] IS IS ALREADY WRITTEN FOR TODAY , AND THERE IS NO REASON THIS CAN'T BE FOLLOWED UP IN OUTPATIENT CARE. fOLLOW- UP APPOINTMENT IS RECOMMENDED FOR [facility] FOR A SECOND OPINION TO NEED FOR INTERVENTION FOR THIS CHRONICALLY DISLOCATED RIGHT SHOULDER WITH NEUROLOGIC DEFICIT. Qualifiers: Encounter type: subsequent encounter Qualified Code(s): S43.004D - Unspecified dislocation of right shoulder joint, subsequent encounter
--- NOTE | 2019-01-06 17:51 | P.DS ---
Admission Date: 12/31/18 Discharge Date: 01/06/19 Disposition: TRANSFER TO [facility] Discharge Condition: GOOD Reason for Admission: sepsis, Consultations: Orthopedics - Problems (1) Sepsis Status: Acute Qualifiers: Sepsis type: sepsis due to unspecified organism Qualified Code(s): A41.9 - Sepsis, unspecified organism (2) Pneumonia Status: Acute Qualifiers: Pneumonia type: due to unspecified organism Laterality: bilateral Lung location: unspecified part of lung Qualified Code(s): J18.9 - Pneumonia, unspecified organism (3) Alzheimer's dementia Status: Chronic Qualifiers: Alzheimer's disease onset: unspecified onset Dementia behavioral disturbance: with behavioral disturbance Qualified Code(s): G30.9 - Alzheimer' s disease, unspecified; F02.81 - Dementia in other diseases classified elsewhere with behavioral disturbance (4) Hypertension Status: Chronic Qualifiers: Hypertension type: essential hypertension Qualified Code(s): I10 - Essential (primary) hypertension (5) Hyperlipidemia Status: Chronic Qualifiers: Hyperlipidemia type: mixed hyperlipidemia Qualified Code(s): E78.2 - Mixed hyperlipidemia (6) Congestive heart failure Status: Chronic Qualifiers: Heart failure type: diastolic Heart failure chronicity: chronic Qualified Code(s): I50.32 - Chronic diastolic (congestive) heart failure (7) Dysphagia Status: Chronic Qualifiers: Dysphagia type: oropharyngeal phase Qualified Code(s): R13.12 - Dysphagia, oropharyngeal phase (8) Dislocation of right shoulder joint Status: Acute Qualifiers: Encounter type: subsequent encounter Qualified Code(s): S43.004D - Unspecified dislocation of right shoulder joint, subsequent encounter Brief History of Present Illness: Mr Baker is a 63 years old male with history of Alzheimer's dementia, resident of a local penit[facility], who was diagnosed with flu last week. This afternoon, he was found more lethargic, with slurred speech, fever 100.5 F. The patient was confused and agitated at arrival to ED. At arrival he was hypotensive 80/56, O2 sat 100% on 3 L. Lab work remarkable for leukocytosis with bandemia, elevated procalcitonin and normal lactate. CXR shows bilateral infiltrate consistent with pneumonia. Hospital Course: Overall during the stay patient remained stable The patient was initially admitted to the hospital for altered mental status and was found to have pneumonia and was treated for pneumonia while here in the hospital with IV antibiotics. Patient had sputum culture done here which was negative for any growth. Patient initially was started on broad-spectrum antibiotics however switched over to p.o. Augmentin. Patient did well overall while here in the hospital altered mental status did resolve most likely secondary to toxic encephalopathy. Patient had head CT done here which was negative for any acute abnormality. MRI was not done. Patient also was found to have right shoulder dislocation while here in the hospital. Orthopedics was consulted. Patient has had this right shoulder dislocation for quite some time and has missed several orthopedic surgery followup appointments in outpatient setting. Dr. Barton saw the patient here in stated that it is advisable that the medical management at this time and he will refer him to shoulder specialist once he is stable for any kind of treatment. Patient family member was consulted who demonstrated understanding of this patient was discharged to [facility] under stable condition Vital Signs/Physical Exam: Temp Pulse Resp BP Pulse Ox 98.0 F 74 16 126/83 95 01/06/19 16:00 01/06/19 16:00 01/06/19 16:00 01/06/19 16:00 01/06/19 16:00 General: Alert, In no apparent distress, Demented HEENT: Atraumatic, PERRLA, EOMI Neck: Supple, JVD not distended Respiratory: Clear to auscultation bilaterally, Normal air movement Cardiovascular: Regular rate/rhythm, Normal S1 S2 Gastrointestinal: Normal bowel sounds Musculoskeletal: Contractures Integumentary: No rashes Neurological: Normal speech, Normal tone, Normal affect Lymphatics: No axilla or inguinal lymphadenopathy Laboratory Data at Discharge: WBC 9.7 K/uL (4.3-10.9) D 01/06/19 03:30 Hgb 9.9 g/dL (13.6-17.9) L 01/06/19 03:30 Hct 29.3 % (39.6-49.0) L 01/06/19 03:30 Plt Count 357 K/uL (152-406) 01/06/19 03:30 PT 12.6 SECONDS (9.5-12.5) H 12/31/18 19:50 INR 1.07 12/31/18 19:50 APTT 23.9 SECONDS (24.3-36.9) L 12/31/18 19:50 Sodium 137 mmol/L (136-145) 01/06/19 03:30 Potassium 3.9 mmol/L (3.5-5.1) 01/06/19 03:30 BUN 11 mg/dL (7-18) 01/06/19 03:30 Creatinine 0.58 mg/dL (0.55-1.3) 01/06/19 03:30 Glucose 88 mg/dL (74-106) 01/06/19 03:30 Magnesium 1.9 mg/dL (1.8-2.4) 01/04/19 05:52 Total Bilirubin 0.3 mg/dL (0.2-1.0) 01/06/19 03:30 AST 32 U/L (15-37) 01/06/19 03:30 ALT 25 U/L (12-78) 01/06/19 03:30 Alkaline Phosphatase 123 U/L (45-117) H 01/06/19 03:30 Lipase 83 U/L (73-393) 12/31/18 19:50 Home Medications: Acetaminophen [Tylenol Extra Strength] 500 mg PO Q6HP PRN 01/01/19 Acetaminophen with Codeine [Tylenol with Codeine #3 Tablet] 1 each PO TID Aspirin [Aspirin EC 81 MG] 81 mg PO DAILY 01/01/19 Atorvastatin Calcium [Lipitor*] 20 mg PO BEDTIME 01/01/19 Bisacodyl [Dulcolax*] 10 mg RC DAILYPRN PRN 01/01/19 Buspirone HCl [Buspar] 15 mg PO BID 01/01/19 Carbamazepine 2 tab PO TID 01/01/19 Divalproex Sodium [Depakote] 250 mg PO TID 01/01/19 Docusate [Colace Cap*] 100 mg PO BID 01/01/19 Donepezil [Aricept*] 5 mg PO BEDTIME 01/01/19 Escitalopram Oxalate [Lexapro] 10 mg PO DAILY 01/01/19 Finasteride [Proscar*] 5 mg PO DAILY 01/01/19 Folic Acid 1 mg PO DAILY 01/01/19 Gabapentin [Neurontin*] 100 mg PO BEDTIME 01/01/19 LORazepam [Ativan*] 1 mg PO BID 01/01/19 Lactulose 15 ml PO TID 01/01/19 Metoprolol Tartrate [Lopressor*] 50 mg PO BID 01/01/19 Multivitamin [Daily Multivitamin] 1 each PO DAILY 01/01/19 Omeprazole [Prilosec] 40 mg PO DAILY 01/01/19 Polyethylene Glycol 3350 [Miralax] 17 gm PO DAILY 01/01/19 Vit A,C & E/Lutein/Minerals [Ocuvite Tablet] 1 tab PO BID 01/01/19 guaiFENesin [Robitussin 100MG/5ML*] 100 mg PO BIDP PRN 01/01/19 Amox/Clavulanate [Augmentin 875-125 Tab] 875 mg PO BID #28 tab 01/06/19 New Medications: Amox/Clavulanate [Augmentin 875-125 Tab] 875 mg PO BID #28 tab Patient Discharge Instructions: Please f.u with PCP and Dr Barton in 1 to 2 week post discharge. New medication. Augmentin 875mg BID Diet: Regular Activity: Ad deborah Followup: Jose Eduardo Barton MD [ACTIVE - CAN ADMIT] -
[2019-01-06] MEDS ORDERED: ENSURE ENLIVE 237 ML CAN PO SCH (21:00)
== END 2019-01-06 17:01 | DRG 871 ==
LOC: ER 19:33 → ERHOLD 23:49 → 3RD-ICU 01-01 00:29 → 4TH 01-01 18:15
PROVIDERS: ADMIT Internal Medicine; ATTEND Family Medicine
DX: A41.9 Sepsis, unspecified organism (principal); J18.9 Pneumonia, unspecified organism; G92 Toxic encephalopathy; F02.81 Dementia in other diseases classified elsewhere, unspecified severity, with behavioral disturbance; I50.32 Chronic diastolic (congestive) heart failure; G30.9 Alzheimer's disease, unspecified; E78.2 Mixed hyperlipidemia; R13.12 Dysphagia, oropharyngeal phase; I11.0 Hypertensive heart disease with heart failure; I95.9 Hypotension, unspecified; Z86.73 Personal history of transient ischemic attack (TIA), and cerebral infarction without residual deficits; M24.411 Recurrent dislocation, right shoulder
CPT/HCPCS: 36415; 70450; 71045; 80048; 80053; 80076; 80164; 81003; 81015; 82550; 82553; 82962; 83605; 83690; 83735; 84145; 84484; 85025; 85610; 85730; 86140; 87040; 87070; 87086; 87088; 87205; 87804; 93005; 94640; 94760; 96365; 96366; 96367; 96375; 97162; 99285; J0692; J1650; J2543; J3370; J7030

== ENCOUNTER 2019-02-01 11:57 | Emergency (ER) | payer OTHER ==
--- NOTE | 2019-02-01 12:40 | RAD REPORT ---
EXAM DESCRIPTION: CT - Head Brain Wo Cont - 02/01/2019 12:31 pm CLINICAL HISTORY: Fall, head and facial trauma COMPARISON: CT head December 31 TECHNIQUE: Axial 5 mm thick images of the head were obtained without IV contrast. All CT scans are performed using dose optimization technique as appropriate and may include automated exposure control or mA/KV adjustment according to patient size. FINDINGS: No intracranial hemorrhage, mass, edema or shift of mid-line structures. No acute cortical based infarction identified. Patient has prominent atrophy and chronic ischemic change along with an old right parietooccipital CVA. Ventricles are in proportion to the volume loss. Arterial and physio logic calcifications are present. Mastoid air cells are clear. No fracture of the cranial vault. IMPRESSION: No intracranial hemorrhage. Patient has prominent atrophy and chronic ischemic change al marbella with old right cerebral CVA changes. Intracranial findings are stable. Orbits, facial bones and sinuses are separately detailed.
--- NOTE | 2019-02-01 12:50 | RAD REPORT ---
EXAM DESCRIPTION: CT - Facial Bones W/ Mpr - 02/01/2019 12:31 pm CLINICAL HISTORY: Fall, head and face trauma COMPARISON: Facial CT July 2018 TECHNIQUE: Axial 2 millimeter thick images of the facial bones were obtained with sagittal and coron al reconstruction imaging. All CT scans are performed using dose optimization technique as appropriate and may include automated exposure control or mA/KV adjustment according to patient size. FINDINGS: Mastoid air cells are clear. Frontal sinuses are clear along with clear sphenoid sinus. Tr obed fluid level in the right maxillary sinus. Patient has a comminuted nasal bone fracture. There is right lateral displacement and angulation of m ultiple fracture fragments. There is fracture of the anterior nasal septum. There is significant left deviation of the midportion of the nasal septum causing narrowing of the left nasal passage. Blood a nd/or edema changes are present in the anterior aspect of the nasal passage. There is a small air-fluid level in the right maxillary sinus but a sinus wall fracture is not confir med. Zygomatic arches are intact. No skull base fracture. Several broken or missing teeth noted. Cannot be determined if there are any teeth broken because the acute injury. No mandible fracture identified. Left condyles normally position. The right condyles is displaced ant eriorly IMPRESSION: Comminuted nasal bone fracture with right displacement and deviation of the fracture fra gments. Anterior nasal septum is fractured. There is significant left deviation of the nasal septum in the mi dportion that probably pre exists the trauma. Trace amount of fluid in the right maxillary sinus without a maxillary sinus fracture identifiable. Right mandibular condyle is displaced anteriorly from the glenoid fossa. Fracture of the mandible is not confirmed.
[2019-02-01] MEDS ORDERED: LIDOCAINE 1% 20 ML MDV ONE (13:34)
--- OUTSIDE RECORDS SUMMARY | 2019-02-01 13:34 | XMS REPORT ---
:1955 [facility] Address [address] [place] [address] Care Team Providers Name Role Phone KENNETH [...]
[2019-02-01] MEDS ORDERED: DERMABOND SKIN ADHESIVE TOP ONE (14:39)
--- NOTE | 2019-02-01 15:09 | ER ---
Nurse's Notes [facility] Name: Brandin Baker Age: 64 yrs Sex: Male : 1955 Arrival Date: 02/01/2019 Time: 11:56 Bed 19 Private MD: Diagnosis: Fracture of nasal bones;Epistaxis;Laceration to forehead without foreign body Presentation: 02/01 11:57 Presenting complaint: EMS states: from [facility], was in the shower when he hj slipped and fell and hit his wheelchair with visible injuries to the nasal area and laceration above the L eye area; unknown if there was LOC; not taking blood thinners;. Transition of care: patient was received from another setting of care ([facility]. Onset of symptoms was February 01, 2019. Risk Assessment: Do you want to hurt yourself or someone else? Patient reports no desire to harm self or others. Initial Sepsis Screen: Does the patient meet any 2 criteria? No. Patient's initial sepsis screen is negative. Does the patient have a suspected source of infection? No. Patient's initial sepsis screen is negative. Care prior to arrival: None. 11:57 Method Of Arrival: Ambulatory 11:57 Acuity: BERNARDA 3 11:57 Mechanism of Injury: Fall out of chair. Trauma event details: Injury occurred in the [facility], Injury occurred: in an institution. Injury occurred: February 01, 2019. Triage Assessment: 12:01 General: Appears in no apparent distress. uncomfortable, Behavior is calm, cooperative, appropriate for age. Pain: Complains of pain in nose. Trauma Activation: Not Applicable Physician: ED Physician; Name: ; Notified At: ; Arrived At: Physician: General Surgeon; Name: ; Notified At: ; Arrived At: Physician: Radiology; Name: ; Notified At: ; Arrived At: Physician: Respiratory; Name: ; Notified At: ; Arrived At: Physician: Lab; Name: ; Notified At: ; Arrived At: Historical: - Allergies: 12:01 No Known Allergies; hj - PMHx: 12:01 Alzheimers; Anemia; Anxiety; Bipolar disorder; CHF; constipation; Dementia; Depression; DYSPHAGIA; epilepsy; GERD; Hyperlipidemia; Hypertension; insomnia; urine retention; - PSHx: 12:01 Unable to obtain; hj - Immunization history:: Adult Immunizations up to date. - Social history:: Smoking status: Patient/guardian denies using tobacco, Patient/guardian denies using alcohol. - Immunization history: Last tetanus immunization: unknown. - Ebola Screening: : Patient negative for fever greater than or equal to 101.5 degrees Fahrenheit, and additional compatible Ebola Virus Disease symptoms Patient denies exposure to infectious person Patient denies travel to an Ebola-affected area in the 21 days before illness onset. Screenin:01 Abuse screen: Denies threats or abuse. Denies injuries from another. Nutritional hj screening: No deficits noted. Tuberculosis screening: No symptoms or risk factors identified. Fall Risk Fall in past 12 months (25 points). Primary Survey: 12:02 NO uncontrolled hemorrhage observed. A: The patient is alert. Airway: patent, No hj supplemental oxygen in use on arrival. Oral cavity: clear, gag reflex present, Trachea midline. Breathing/Chest: Respiratory pattern: regular, Respiratory effort: spontaneous, unlabored, Breath sounds: clear, Chest inspection: symmetrical rise and fall of the chest. Circulation: Cardiac rhythm: sinus rhythm Heart tones present. Pulses: palpable right radial artery and left radial artery. Skin color: pink, Skin temperature: warm, dry. Disability Alert. Exposure/Environment: All clothing and personal items were removed. Forensic evidence collection is not deemed to be indicated at this time. Items placed in patient belonging bag. There is no evidence of uncontrolled external bleeding. Obvious injury(ies) are noted at this time: nasal area and area above the L eye;. Reassessment Airway Airway Oxygen No O2 Oral cavity Clear +Gag reflex Trachea Midline Breathing/Chest Respiratory pattern Regular Respiratory effort Spontaneous Unlabored Breath sounds Clear Chest inspection Symmetrical Circulation Heart rhythm Sinus rhythm Heart tones Present Pulses Palpable Color [place] Temperature Warm Dry Arterial Line Disability Alert. Secondary Survey: 12:30 HEENT: Nose: bleeding noted deformity noted nose. hj 12:30 Gastrointestinal: No deficits noted. : No signs and/or symptoms were reported regarding the genitourinary system. Musculoskeletal: No signs and/or symptoms reported regarding the musculoskeletal system. Assessment: 16:12 Reassessment: HC staff states they will send their transportation to [facility]. Vital Signs: 12:03 BP 121 / 74; Pulse 65; Resp 18; Temp 98.1(O); Pulse Ox 97% on R/A; Weight 63.5 kg; hj Height 5 ft. 5 in. (165.10 cm); 13:30 BP 128 / 75; Pulse 66; Resp 18; Pulse Ox 100% on R/A; hj 14:30 BP 124 / 72; Pulse 69; Resp 18; Pulse Ox 99% on R/A; hj 15:18 BP 125 / 76; Pulse 65; Resp 18; Pulse Ox 99% on R/A; hj 12:03 Body Mass Index 23.30 (63.50 kg, 165.10 cm) hj [place] Coma Score: 12:03 Eye Response: spontaneous(4). Verbal Response: oriented(5). Motor Response: obeys hj commands(6). Total: 15. Trauma Score (Adult): 12:03 Eye Response: spontaneous(1); Verbal Response: oriented(1); Motor Response: obeys hj commands(2); Systolic BP: > 89 mm Hg(4); Respiratory Rate: 10 to 29 per min(4); [facility] Score: 15; Trauma Score: 12 ED Course: 11:56 Patient arrived in ED. hj 11:59 Triage completed. hj 12:05 Arm band placed on right wrist. hj 12:05 Patient has correct armband on for positive identification. Bed in low position. Call hj light in reach. Side rails up X2. 12:05 Patient maintains SpO2 saturation greater than 95% on room air. hj 12:06 Thermoregulation: warm blanket given to patient. hj 12:07 Jaun Hurt RN is Primary Nurse. hj 12:11 Ernie Mendez PA is PHCP. jr8 12:11 Eduardo Jeffries MD is Attending Physician. jr8 12:29 CT completed. Patient tolerated procedure well. Patient moved back from CT. sj 12:31 CT Head Brain wo Cont In Process Unspecified. EDMS 12:31 CT Facial Bones W/O Con In Process Unspecified. EDMS 15:07 Adelina Batista MD is Referral Physician. jr8 15:49 No provider procedures requiring assistance completed. Patient did not have IV access hj during this emergency room visit. Administered Medications: No medications were administered Outcome: 15:08 Discharge ordered by . jr8 15:50 Discharged to retirement. Report called to Tere Dobbins RN hj 15:50 Condition: stable 15:50 Discharge instructions given to retirement, Instructed on discharge instructions, follow up and referral plans. medication usage, Demonstrated understanding of instructions, follow-up care, medications, Prescriptions given X 1. 16:54 Patient left the ED. afsaneh Signatures: Dispatcher [employer] Anitra Johnson Irene, RN RN iw Roszak, Josh, PA PA 8 Jaun Hurt RN RN hj
--- NOTE | 2019-02-01 15:09 | EDPHYS ---
Physician Documentation [facility] Name: Brandin Baker Age: 64 yrs Sex: Male : 1955 Arrival Date: 02/01/2019 Time: 11:56 Bed 19 Private MD: ED Physician Eduardo Jeffries HPI: 02/01 12:59 This 64 yrs old Male presents to ER via Ambulatory with complaints of Fall jr8 Injury. 12:59 Details of fall: The patient fell from an upright position, while standing. jr8 13:00 Onset: The symptoms/episode began/occurred acutely, today. Associated injuries: The jr8 patient sustained injury to the head, deformity, laceration, pain, swelling, tenderness. Severity of symptoms: At their worst the symptoms were moderate, in the emergency department the symptoms are unchanged. It is unknown whether or not the patient has had similar symptoms in the past. The patient has not recently seen a physician. Patient was in shower [place] when he slipped hitting face on wheel chair and ground. Laceration to forehead and obvious deformity to nose present. Patient denies LOC . Historical: - Allergies: 12:01 No Known Allergies; hj - PMHx: 12:01 Alzheimers; Anemia; Anxiety; Bipolar disorder; CHF; constipation; Dementia; Depression; hj DYSPHAGIA; epilepsy; GERD; Hyperlipidemia; Hypertension; insomnia; urine retention; - PSHx: 12:01 Unable to obtain; hj - Immunization history:: Adult Immunizations up to date. - Social history:: Smoking status: Patient/guardian denies using tobacco, Patient/guardian denies using alcohol. - Immunization history: Last tetanus immunization: unknown. - Ebola Screening: : Patient negative for fever greater than or equal to 101.5 degrees Fahrenheit, and additional compatible Ebola Virus Disease symptoms Patient denies exposure to infectious person Patient denies travel to an Ebola-affected area in the 21 days before illness onset. ROS: 13:00 Eyes: Negative for injury, pain, redness, and discharge, Neck: Negative for injury, jr8 pain, and swelling, Cardiovascular: Negative for chest pain, palpitations, and edema, Respiratory: Negative for shortness of breath, cough, wheezing, and pleuritic chest pain, Abdomen/GI: Negative for abdominal pain, nausea, vomiting, diarrhea, and constipation, Back: Negative for injury and pain, MS/Extremity: Negative for injury and deformity, Neuro: Negative for headache, weakness, numbness, tingling, and seizure. 13:00 ENT: Positive for injury or acute deformity, nose bleed. 13:00 Skin: Positive for laceration(s). Exam: 13:00 Eyes: Pupils equal round and reactive to light, extra-ocular motions intact. Lids and jr8 lashes normal. Conjunctiva and sclera are non-icteric and not injected. Cornea within normal limits. Periorbital areas with no swelling, redness, or edema. Neck: Trachea midline, no thyromegaly or masses palpated, and no cervical lymphadenopathy. Supple, full range of motion without nuchal rigidity, or vertebral point tenderness. No Meningismus. Chest/axilla: Normal chest wall appearance and motion. Nontender with no deformity. No lesions are appreciated. Cardiovascular: Regular rate and rhythm with a normal S1 and S2. No gallops, murmurs, or rubs. Normal PMI, no JVD. No pulse deficits. Respiratory: Lungs have equal breath sounds bilaterally, clear to auscultation and percussion. No rales, rhonchi or wheezes noted. No increased work of breathing, no retractions or nasal flaring. Abdomen/GI: Soft, non-tender, with normal bowel sounds. No distension or tympany. No guarding or rebound. No evidence of tenderness throughout. Back: No spinal tenderness. No costovertebral tenderness. Full range of motion. Skin: Warm, dry with normal turgor. Normal color with no rashes, no lesions, and no evidence of cellulitis. MS/ Extremity: Pulses equal, no cyanosis. Neurovascular intact. Full, normal range of motion. Neuro: Awake and alert, GCS 15, oriented to person, place, time, and situation. Cranial nerves II-XII grossly intact. Motor strength 5/5 in all extremities. Sensory grossly intact. Cerebellar exam normal. Normal gait. 13:00 Head/face: Noted is a laceration(s), that is deep, that is jagged, 2.5 cm(s), of the forehead. 13:00 ENT: External ear(s): are unremarkable, Ear canal(s): are normal, clear, TM's: are normal, no evidence of bulging, no dullness, no erythema, no fluid levels, no hemotympanum, no rupture, normal bony landmarks, normal mobility, Nose: External nose: contusion is noted, deformity is noted, swelling is noted, Nasal septum: deviates to the left, no septal hematoma appreciated, Nasal mucosa: Dried blood. moist, bleeding, is seen from the right nare, and is minimal, clotted blood, in right nare, Mouth: Lips: moist, Oral mucosa: pink and intact, moist, Gums: pink, Tongue: is moist, Posterior pharynx: Airway: patent, Tonsils: are normal in appearance, Uvula: midline, non-edematous, no erythema, swelling, is not appreciated. Vital Signs: 12:03 BP 121 / 74; Pulse 65; Resp 18; Temp 98.1(O); Pulse Ox 97% on R/A; Weight 63.5 kg; hj Height 5 ft. 5 in. (165.10 cm); 13:30 BP 128 / 75; Pulse 66; Resp 18; Pulse Ox 100% on R/A; hj 14:30 BP 124 / 72; Pulse 69; Resp 18; Pulse Ox 99% on R/A; hj 15:18 BP 125 / 76; Pulse 65; Resp 18; Pulse Ox 99% on R/A; hj 12:03 Body Mass Index 23.30 (63.50 kg, 165.10 cm) Foxworth Coma Score: 12:03 Eye Response: spontaneous(4). Verbal Response: oriented(5). Motor Response: obeys commands(6). Total: 15. Trauma Score (Adult): 12:03 Eye Response: spontaneous(1); Verbal Response: oriented(1); Motor Response: obeys commands(2); Systolic BP: > 89 mm Hg(4); Respiratory Rate: 10 to 29 per min(4); Olivia Score: 15; Trauma Score: 12 Procedures: 14:37 Reduction: of the nose, using manipulation, Patient tolerated well. . jr8 Laceration: 14:37 Wound Repair of 2.5cm ( 1.0in ) subcutaneous laceration to forehead. Irregularly jr8 shaped.. Minimal bleeding noted.. Distal neuro/vascular/tendon intact. Anesthesia: Local anesthetic administered with 2 mls of 1% lidocaine. Wound prep: Extensive cleansing with hibiclenz, Wound irrigation with saline, Wound explored extensively. Skin closed with 4 4-0 Prolene using interrupted sutures and sterile technique. Patient tolerated well. 14:37 Wound Repair of 1.5cm ( 0.6in ) partial thickness laceration to nose. Linear shaped.. jr8 Distal neuro/vascular/tendon intact. Wound prep: Moderate cleansing with hibiclenz, Wound explored extensively. Skin closed with 1 thin layer Adhesive skin closure using Dermabond. Patient tolerated well. MDM: 12:11 Patient medically screened. jr8 15:06 Data reviewed: vital signs, nurses notes, radiologic studies, CT scan. Data jr8 interpreted: Pulse oximetry: on room air is 97 %. Interpretation: normal. Counseling: I had a detailed discussion with the patient and/or guardian regarding: the historical points, exam findings, and any diagnostic results supporting the discharge/admit diagnosis, radiology results, the need for outpatient follow up, an ENT specialist, a family practitioner, to return to the emergency department if symptoms worsen or persist or if there are any questions or concerns that arise at home. ED course: Epistaxis controlled. Will send out to f/u with ENT . 02/01 12:19 Order name: CT Head Brain wo Cont; Complete Time: 12:42 jr8 02/01 12:19 Order name: CT Facial Bones W/O Con; Complete Time: 12:54 8 02/01 16:41 Order name: Diet Pureed; Complete Time: 16:42 5 Administered Medications: No medications were administered Disposition: 02/02 07:08 Co-signature as Attending Physician, Eduardo Jeffries MD. rn Disposition: 02/01/19 15:08 Discharged to Home. Impression: Fracture of nasal bones, Epistaxis, Laceration to forehead without foreign body . - Condition is Stable. - Discharge Instructions: Nosebleed, Adult, Nasal Fracture. - Prescriptions for Augmentin 875- 125 mg Oral Tablet - take 1 tablet by ORAL route every 12 hours for 7 days; 14 tablet. - Medication Reconciliation Form, Thank You Letter, Antibiotic Education, Prescription Opioid Use form. - Follow up: Adelina Batista MD; When: 2 - 3 days; Reason: Recheck today's complaints, Continuance of care, Re-evaluation by your physician. - Problem is new. - Symptoms have improved. Signatures: Dispatcher [employer] EDMS Eduardo Jeffries MD MD rn Ernie Mendez PA PA jr8 Jaun Hurt RN RN hj Corrections: (The following items were deleted from the chart) 02/01 13:01 12:59 Details of fall: The patient fell from seated position, in the shower, out of a jr8 wheelchair, jr8 16:54 15:08 02/01/2019 15:08 Discharged to Home. Impression: Fracture of nasal bones; hj Epistaxis; Laceration to forehead without foreign body . Condition is Stable. Forms are Medication Reconciliation Form, Thank You Letter, Antibiotic Education, Prescription Opioid Use. Follow up: Adelina Batista; When: 2 - 3 days; Reason: Recheck today's complaints, Continuance of care, Re-evaluation by your physician. Problem is new. Symptoms have improved. jr8
== END 2019-02-01 16:54 | disposition home or self-care (01) ==
LOC: ER 11:57
PROC: 0NSBXZZ Reposition Nasal Bone, External Approach (ICD-10-PCS; principal; 2019-02-01)
PROC: 0JQ10ZZ Repair Face Subcutaneous Tissue and Fascia, Open Approach (ICD-10-PCS; 2019-02-01)
DX: S02.2XXA Fracture of nasal bones, initial encounter for closed fracture (principal); S01.81XA Laceration without foreign body of other part of head, initial encounter; W01.198A Fall on same level from slipping, tripping and stumbling with subsequent striking against other object, initial encounter; Y93.E1 Activity, personal bathing and showering; Y92.9 Unspecified place or not applicable; G30.9 Alzheimer's disease, unspecified; F02.80 Dementia in other diseases classified elsewhere, unspecified severity, without behavioral disturbance, psychotic disturbance, mood disturbance, and anxiety; I10 Essential (primary) hypertension
CPT/HCPCS: 70450; 70486; 76377; 21315; 12013; G0168; 99284

== ENCOUNTER 2019-03-06 20:29 | Emergency (ER) | payer OTHER ==
--- OUTSIDE RECORDS SUMMARY | 2019-03-06 20:30 | XMS REPORT ---
:1955 [facility] Address [address] [place] [address] Care Team Providers Name Role Phone KENNETH [...]
[2019-03-06 21:30] LABS: Protime INR 1.06
[2019-03-06 21:34] LABS: Absolute Lymphocytes (CBC) 2.1 K/uL (0.7-4.9); Absolute Monocytes 0.9 K/uL (0.1-1.3); Absolute Neutrophil 5.6 K/uL (1.8-8.0); Basophils % 1.7 % (0-1.3); Eosinophils % 4.1 % (0-4.4); Hematocrit 34.2 % (39.6-49.0); Lymphocytes % 23.2 % (15.3-44.8); MPV 9.2 fL (7.6-11.3); Monocytes % 9.8 % (3.3-12.3); RBC Red Blood Cell Count 3.37 M/uL (4.33-5.43)
[2019-03-06 22:21] LABS: BUN Blood Urea Nitrogen 16 mg/dL (7-18); Bicarbonate 31 mmol/L (21-32); Glucose Level 99 mg/dL (74-106); NT PRO-BNP 1363 pg/mL (<125); Potassium 4.5 mmol/L (3.5-5.1); Sodium Level 139 mmol/L (136-145)
[2019-03-06 23:56] LABS: Urine Bacteria <20 /HPF (NONE SEEN); Urine Culture Reflex Order NOT NEEDED; Urine RBC NONE SEEN /HPF (NONE SEEN)
--- NOTE | 2019-03-07 00:01 | ER ---
Nurse's Notes [facility] Name: Brandin Baker Age: 64 yrs Sex: Male : 1955 Arrival Date: 03/06/2019 Time: 20:33 Bed 17 Private MD: Diagnosis: Pneumonia due to other specified bacteria-improved Presentation: 03/06 20:38 Presenting complaint: EMS states: patient has been having productive cough for few days mg2 now. xray was done last 03/01/2019 showing peumonia. no signs of distress or desaturation. Transition of care: patient was received from another setting of care (long-term care facility), [facility]. Onset of symptoms was January 2019. Risk Assessment: Do you want to hurt yourself or someone else? Patient reports no desire to harm self or others. Initial Sepsis Screen: Does the patient meet any 2 criteria? No. Patient's initial sepsis screen is negative. Does the patient have a suspected source of infection? No. Patient's initial sepsis screen is negative. Care prior to arrival: None. 20:38 Method Of Arrival: EMS: [facility] mg2 20:38 Acuity: BERNARDA 3 mg2 Triage Assessment: 21:16 General: Appears in no apparent distress. comfortable, Behavior is restless. Pain: mg2 Denies pain. EENT: No deficits noted. Neuro: Level of Consciousness is awake, alert, Oriented to person, demented. Cardiovascular: Capillary refill < 3 seconds Patient's skin is warm and dry. Respiratory: Airway is patent Respiratory effort is even, unlabored, Respiratory pattern is regular, symmetrical, Respiratory: Reports cough that is productive. GI: No deficits noted. : No signs and/or symptoms were reported regarding the genitourinary system. Derm: Skin is intact, is healthy with good turgor, Skin is pink, warm \T\ dry. normal. Musculoskeletal: Circulation, motion, and sensation intact. Capillary refill < 3 seconds. Historical: - Allergies: 20:43 No Known Allergies; mg2 - Home Meds: 20:43 Aricept 10 mg Oral tab 1 tab once daily [Active]; aspirin 81 mg Oral chew 1 tab once mg2 daily [Active]; atorvastatin 20 mg Oral tab 1 tab once daily [Active]; bisacodyl 10 mg Rectal supp 1 suppository once daily [Active]; carbamazepine 100 mg Oral CM12 2 caps three times a day [Active]; Colace 50 mg Oral cap 1 cap 2 times per day [Active]; Depakote Sprinkles 125 mg Oral cpSP 3 times per day [Active]; ergocalciferol (vitamin D2) miscellaneous powd daily [Active]; finasteride 5 mg Oral tab 1 tab once daily [Active]; folic acid 1 mg Oral tab 1 tab once daily [Active]; lactulose 10 gram/15 mL (15 mL) Oral soln 15 mL 3 times per day [Active]; Lexapro 10 mg Oral tab 1 tab once daily [Active]; metoprolol tartrate 50 mg Oral tab 1 tab 2 times per day [Active]; Nuedexta 20-10 mg Oral cap 1 cap every 12 hours [Active]; Protonix 40 mg Oral TbEC 1 tab 2 times per day [Active]; Zantac 75 mg Oral tab once daily [Active]; - PMHx: 20:43 Alzheimers; Anemia; Anxiety; Bipolar disorder; CHF; constipation; Dementia; Depression; mg2 DYSPHAGIA; epilepsy; GERD; Hyperlipidemia; Hypertension; insomnia; urine retention; - Immunization history:: Flu vaccine status is unknown. - Social history:: Smoking status: unknown. - Ebola Screening: : No symptoms or risks identified at this time. Screenin:18 Abuse screen: Denies threats or abuse. Denies injuries from another. Nutritional mg2 screening: No deficits noted. Tuberculosis screening: No symptoms or risk factors identified. Fall Risk Secondary diagnosis (15 points) Alzheimer's, dementia, CVA, IV access (20 points). Mental Status- Overestimates/Forgets Limitations (15 pts.). Assessment: 21:17 Reassessment: pls see triage assessment. mg2 03/07 00:30 Reassessment: [facility]UREEN [facility] was called and informed about mg2 the plan for discharge and to arrange the transportation with [facility]. patient will be picked up by ems after 1.5 hours. 02:09 Reassessment: patient sleeping. mg2 02:57 Reassessment: patient picked up by Chace- nurse and senior marketing specialist of [facility] per mg2 wheelchair. patient in stable condition. Vital Signs: 03/06 20:40 BP 131 / 62; Pulse 69; Resp 18; Temp 98.4; Pulse Ox 95% on R/A; mg2 23:14 BP 139 / 79; Pulse 80; Resp 18; Temp 98.5; Pulse Ox 98% on R/A; mg2 23:53 BP 139 / 89; Pulse 70; Resp 18; Temp 98.4; Pulse Ox 96% on R/A; Pain 0/10; mg2 05/12 01:38 BP 143 / 88; Pulse 71; Resp 18; Pulse Ox 95% on R/A; mg2 02:58 BP 142 / 80; Pulse 70; Resp 18; Temp 98.5; Pulse Ox 96% on R/A; Pain 0/10; mg2 01:38 patient is sleeping. mg2 ED Course: 03/06 20:33 Patient arrived in ED. mg2 20:35 [place], MAUREEN is Primary Nurse. mg2 20:37 Francisco Brewster PA is PHCP. cp 20:37 Riaz Anderson MD is Attending Physician. cp 20:40 Triage completed. mg2 20:44 Arm band placed on. mg2 21:15 First set of blood cultures drawn by me, Second set of blood cultures drawn by me, EKG mg2 done, by ED staff, reviewed by Francisco LAFLEUR Flu and/or RSV swab sent to lab. 21:18 No provider procedures requiring assistance completed. Inserted saline lock: 20 gauge mg2 in right forearm, using aseptic technique. Blood collected. 21:19 Patient has correct armband on for positive identification. shelter monitor on. Pulse mg2 ox on. NIBP on. Door closed. Warm blanket given. 21:28 XRAY Chest (1 view) In Process Unspecified. EDMS 23:14 Straight cath inserted, using sterile technique, 12 Fr. Returned clear yellow urine. mg2 Patient tolerated well. 03/07 02:59 IV discontinued, intact, bleeding controlled, No redness/swelling at site. Pressure mg2 dressing applied. Administered Medications: No medications were administered Outcome: 00:00 Discharge ordered by . cp 02:58 Patient left the ED. ed1 02:59 Discharged to residential. Report called to MAUREEN Mas mg2 02:59 Condition: stable 02:59 Discharge instructions given to residential, Instructed on discharge instructions, follow up and referral plans. Demonstrated understanding of instructions, follow-up care. Signatures: Dispatcher [employer] EDMS Bridget Beaver RN RN ed1 Francisco Brewster PA PA cp Moiz Park, RN RN mg2 Corrections: (The following items were deleted from the chart) 00:33 00:21 Reassessment: mg2 mg2 01:38 00:30 Reassessment: MAUREEN [facility] was called and informed mg2 about the plan for discharge and to arrange the transportation with [facility]. mg2
--- NOTE | 2019-03-07 00:02 | EDPHYS ---
Physician Documentation [facility] Name: Brandin Baker Age: 64 yrs Sex: Male : 1955 Arrival Date: 03/06/2019 Time: 20:33 Bed 17 Private MD: ED Physician Riaz Anderson HPI: 03/06 21:10 This 64 yrs old Male presents to ER via EMS with complaints of cough. cp 21:10 The patient or guardian reports cough, that is intermittent. Onset: The cp symptoms/episode began/occurred gradually. Associated signs and symptoms: Pertinent negatives: chest pain, diarrhea, fever, vomiting. The patient has been recently seen by a physician: the patient's primary care provider, with similar presenting complaints, and apparently given a diagnosis of pneumonia on chest xray performed 03/01/2019. Historical: - Allergies: 20:43 No Known Allergies; mg2 - Home Meds: 20:43 Aricept 10 mg Oral tab 1 tab once daily [Active]; aspirin 81 mg Oral chew 1 tab once mg2 daily [Active]; atorvastatin 20 mg Oral tab 1 tab once daily [Active]; bisacodyl 10 mg Rectal supp 1 suppository once daily [Active]; carbamazepine 100 mg Oral CM12 2 caps three times a day [Active]; Colace 50 mg Oral cap 1 cap 2 times per day [Active]; Depakote Sprinkles 125 mg Oral cpSP 3 times per day [Active]; ergocalciferol (vitamin D2) miscellaneous powd daily [Active]; finasteride 5 mg Oral tab 1 tab once daily [Active]; folic acid 1 mg Oral tab 1 tab once daily [Active]; lactulose 10 gram/15 mL (15 mL) Oral soln 15 mL 3 times per day [Active]; Lexapro 10 mg Oral tab 1 tab once daily [Active]; metoprolol tartrate 50 mg Oral tab 1 tab 2 times per day [Active]; Nuedexta 20-10 mg Oral cap 1 cap every 12 hours [Active]; Protonix 40 mg Oral TbEC 1 tab 2 times per day [Active]; Zantac 75 mg Oral tab once daily [Active]; - PMHx: 20:43 Alzheimers; Anemia; Anxiety; Bipolar disorder; CHF; constipation; Dementia; Depression; mg2 DYSPHAGIA; epilepsy; GERD; Hyperlipidemia; Hypertension; insomnia; urine retention; - Immunization history:: Flu vaccine status is unknown. - Social history:: Smoking status: unknown. - Ebola Screening: : No symptoms or risks identified at this time. ROS: 21:13 Constitutional: Negative for fever, poor PO intake. cp 21:13 Cardiovascular: Negative for chest pain, edema. cp 21:13 Respiratory: Positive for cough. 21:13 Abdomen/GI: Negative for vomiting, diarrhea. 21:13 Neuro: Negative for altered mental status. 21:13 Unable to obtain ROS due to baseline dementia. Exam: 21:15 ECG was reviewed by the Attending Physician. cp 21:20 Constitutional: The patient appears in no acute distress, alert, awake, cp non-diaphoretic, non-toxic, well developed, well nourished. 21:20 Head/Face: Normocephalic, atraumatic. cp 21:20 Eyes: Periorbital structures: appear normal, Pupils: equal, round, and reactive to light and accomodation, Conjunctiva: normal, no exudate, no injection, Sclera: no appreciated abnormality, Lids and lashes: appear normal, bilaterally. 21:20 ENT: External ear(s): are unremarkable, Ear canal(s): are normal, clear, TM's: bulging, is not appreciated, bilaterally, dullness, bilaterally, erythema, is not appreciated, bilaterally, Nose: is normal, Mouth: Lips: moist, Oral mucosa: pink and intact, moist, Posterior pharynx: Airway: no evidence of obstruction, patent. 21:20 Neck: ROM/movement: is normal, is supple, no meningismus, no nuchal rigidity. 21:20 Chest/axilla: Inspection: normal, Palpation: is normal, no crepitus, no tenderness. 21:20 Cardiovascular: Rate: normal, Rhythm: regular, Edema: is not appreciated, JVD: is not appreciated. 21:20 Respiratory: the patient does not display signs of respiratory distress, Respirations: normal, no use of accessory muscles, no retractions, no splinting, no tachypnea, labored breathing, is not present, Breath sounds: rales, are not appreciated, decreased breath sounds, that are mild, are located in both bases, rhonchi, are not appreciated, stridor, is not appreciated, wheezing: is not appreciated. 21:20 Abdomen/GI: Inspection: abdomen appears normal, Palpation: abdomen is soft and non-tender, in all quadrants. 21:20 Musculoskeletal/extremity: Extremities: the patient is contracted, diffusely, mild. 21:20 Skin: cellulitis, is not appreciated, no rash present. 21:20 Neuro: Orientation: Not oriented to person, place, situation, Mentation: unable to test, the patient has a history of dementia. Vital Signs: 20:40 BP 131 / 62; Pulse 69; Resp 18; Temp 98.4; Pulse Ox 95% on R/A; mg2 23:14 BP 139 / 79; Pulse 80; Resp 18; Temp 98.5; Pulse Ox 98% on R/A; mg2 23:53 BP 139 / 89; Pulse 70; Resp 18; Temp 98.4; Pulse Ox 96% on R/A; Pain 0/10; mg2 03/07 01:38 BP 143 / 88; Pulse 71; Resp 18; Pulse Ox 95% on R/A; mg2 02:58 BP 142 / 80; Pulse 70; Resp 18; Temp 98.5; Pulse Ox 96% on R/A; Pain 0/10; mg2 01:38 patient is sleeping. mg2 MDM: 03/06 20:37 Patient medically screened. cp 21:15 Differential diagnosis: bronchitis, flu, sepsis, respiratory distress. 03/07 00:00 Data reviewed: vital signs, nurses notes, lab test result(s), EKG, radiologic studies, cp plain films, I have discussed the patient's presentation/case with the attending Emergency Department Physician; and as a result, I will discharge patient. 00:00 Test interpretation: by ED physician or midlevel provider: ECG, plain radiologic cp studies. 03/06 20:58 Order name: Basic Metabolic Panel cp 03/06 20:58 Order name: CBC with Diff cp 03/06 20:58 Order name: NT PRO-BNP cp 03/06 20:58 Order name: PT-INR cp 03/06 20:58 Order name: Procalcitonin cp 03/06 20:58 Order name: Lactate cp 03/06 20:58 Order name: Blood Culture Adult (2) cp 03/06 20:58 Order name: Influenza Screen (a \T\ B); Complete Time: 22:32 cp 03/06 20:59 Order name: Basic Metabolic Panel; Complete Time: 22:32 EDKS 03/06 20:59 Order name: CBC with Automated Diff; Complete Time: 22:32 [facility] 03/06 22:33 Interpretation: Normal except: RBC 3.37; HGB 11.2; HCT 34.2; MCV 101.6; BASO% 1.7. 03/06 20:59 Order name: NT PRO-BNP; Complete Time: 22:32 [facility] 03/06 22:33 Interpretation: Abnormal: NT PRO-BNP 1363. 03/06 20:59 Order name: Protime (+INR); Complete Time: 22:32 EDKS 03/06 20:59 Order name: Procalcitonin; Complete Time: 22:41 [facility] 03/06 22:41 Interpretation: Abnormal: Procalcitonin < 0.05. 03/06 20:59 Order name: Lactate; Complete Time: 22:32 [facility] 03/06 22:33 Interpretation: LAC 0.9; Reviewed. 03/06 20:58 Order name: XRAY Chest (1 view) 03/06 20:58 Order name: EKG; Complete Time: 20:59 03/06 20:58 Order name: Cardiac monitoring; Complete Time: 21:14 03/06 20:58 Order name: EKG - Nurse/Tech; Complete Time: 21:14 03/06 20:58 Order name: IV Saline Lock; Complete Time: 21:14 03/06 20:58 Order name: Labs collected and sent; Complete Time: 21:14 03/06 20:58 Order name: O2 Per Protocol; Complete Time: 21:14 03/06 20:58 Order name: O2 Sat Monitoring; Complete Time: 21:14 03/06 20:59 Order name: Blood Culture [facility] 03/06 22:42 Order name: Cath; Complete Time: 23:12 03/06 22:42 Order name: Urine Microscopic Only 03/06 22:42 Order name: Urine Dipstick-Ancillary (obtain specimen); Complete Time: 23:12 03/06 23:13 Order name: Urine Dipstick--Ancillary (enter results) cm6 EC/11 21:15 Rate is 67 beats/min. Rhythm is regular. NE interval is normal. QRS interval is normal. cp QT interval is normal. Interpreted by me. Reviewed by me. Administered Medications: No medications were administered Disposition: 03/07 03:00 Chart complete. cp 04:10 Co-signature as Attending Physician, Riaz Anderson MD I agree with the assessment and kdr plan of care. Disposition: 03/07/19 00:00 Discharged to Home. Impression: Pneumonia due to other specified bacteria - improved. - Condition is Stable. - Discharge Instructions: Community-Acquired Pneumonia, Adult. - Medication Reconciliation Form, Thank You Letter, Antibiotic Education, Prescription Opioid Use form. - Follow up: Private Physician; When: 1 - 2 days; Reason: Recheck today's complaints. - Problem is new. - Symptoms have improved. Signatures: Dispatcher [employer] EDKS Riaz Anderson MD MD [facility] Bridget Beaver RN RN ed1 Francisco Brewster PA PA cp Moiz Park RN RN mg2 Corrections: (The following items were deleted from the chart) 02:58 00:00 03/07/2019 00:00 Discharged to Home. Impression: Pneumonia due to other specified ed1 bacteria - improved. Condition is Stable. Forms are Medication Reconciliation Form, Thank You Letter, Antibiotic Education, Prescription Opioid Use. Follow up: Private Physician; When: 1 - 2 days; Reason: Recheck today's complaints. Problem is new. Symptoms have improved. cp
[2019-03-07 00:51] LABS: Urine Blood NEGATIVE (NEG); Urine Glucose NEGATIVE (NEG); Urine Protein NEGATIVE (NEG); Urine Specific Gravity 1.015 (1.005-1.030); Urine pH 8.5 (5.0-7.0)
--- NOTE | 2019-03-07 07:47 | RAD REPORT ---
EXAM DESCRIPTION: RAD - Chest Single View - 03/06/2019 9:32 pm CLINICAL HISTORY: Cough and congestion COMPARISON: January 05 TECHNIQUE: AP portable chest image was obtained 2129 hours . FINDINGS: Lung volumes are low. Mild chronic interstitial opacification is present. Prior right lung base pneumonia has resolved. Left superior to the Port-A-Cath remains in place. Left costophrenic an gle blunting has not changed. Heart and vasculature are normal. No pneumothorax or enlarging pleural effusion. Old rib trauma and bilateral shoulder joint degenerative changes noted. No acute aortic fin dings suspected. IMPRESSION: Chronic interstitial changes are present without suspicious change from comparison. Right lung base pneumonia has resolved since December. There is some remnant scarring in the right base.
--- NOTE | 2019-03-07 08:46 | EKG ---
Test Date: 2019-03-06 Test Time: 21:07:31 Manager Of Financial: MEASUREMENT RESULTS: Intervals: Rate: 67 WY: 146 QRSD: 98 QT: 424 QTc: 448 Graham: P: 66 WY: 146 QRS: 52 T: 2 INTERPRETIVE STATEMENTS: Normal sinus rhythm Normal ECG Compared to ECG 12/31/2018 19:49:09 T-wave abnormality no longer present Electronically Signed On 03-07-19 08:46:00 CDT by Santino Oneill
== END 2019-03-07 02:58 | disposition home or self-care (01) ==
LOC: ER 20:29
DX: J15.8 Pneumonia due to other specified bacteria (principal); G30.9 Alzheimer's disease, unspecified; F02.80 Dementia in other diseases classified elsewhere, unspecified severity, without behavioral disturbance, psychotic disturbance, mood disturbance, and anxiety; I10 Essential (primary) hypertension; E78.5 Hyperlipidemia, unspecified; G40.909 Epilepsy, unspecified, not intractable, without status epilepticus; I50.9 Heart failure, unspecified; F32.9 Major depressive disorder, single episode, unspecified; F41.9 Anxiety disorder, unspecified
CPT/HCPCS: 36415; 51702; 71045; 80048; 81003; 81015; 83605; 83880; 84145; 85025; 85610; 87040; 87804; 93005; 99284

== ENCOUNTER 2019-05-23 00:32 | Inpatient (IN) | payer OTHER ==
--- OUTSIDE RECORDS SUMMARY | 2019-05-23 00:34 | XMS REPORT ---
:01/30/1954 [facility] [address] [place] [id number] Care Team Providers Name Role Phone KENNETH ISBELL Primary Care Provider Unavailable KENNETH ISBELL M.D. Unavailable Unavailable Problems This patient has no known problems. Allergies, Adverse Reactions, Alerts This patient has no known allergies or adverse reactions. Medications This patient has no known medications. Encounters Start End Encounter Admission Attending Care Care Encounter Date/Time Date/Time Type Type Clinicians Facility Department ID 2018-02-14 2018-02-14 Inpatient [facility] [id number] 11:51:00 09:05:00 2018-02-10 2018-02-10 Emergency [facility] [id number] 08:44:00 08:44:00 Results Test Description Test Time Test Comments [...] dose lowering techniques were used according to CARITORAprinciple. Axial images were made without IV contrast [...]
[2019-05-23] MEDS ORDERED: LEVALBUTEROL 1.25 MG/3 ML NEB ONE (01:01)
[2019-05-23 01:11] LABS: Absolute Lymphocytes (CBC) 1.2 K/uL (0.7-4.9); Basophils % 0.6 % (0-1.3); Hematocrit 29.1 % (39.6-49.0); MPV 9.2 fL (7.6-11.3); RBC Red Blood Cell Count 2.85 M/uL (4.33-5.43)
[2019-05-23 01:29] LABS: Potassium 3.7 mmol/L (3.5-5.1)
[2019-05-23 01:31] LABS: Urine Blood 2+ (NEG); Urine Glucose NEGATIVE (NEG); Urine Protein 2+ (NEG); Urine Specific Gravity 1.025 (1.005-1.030)
[2019-05-23 01:37] LABS: Urine Bacteria <20 /HPF (NONE SEEN); Urine Culture Reflex Order NOT NEEDED
--- NOTE | 2019-05-23 01:37 | ER ---
Nurse's Notes [facility] Name: Brandin Baker Age: 65 yrs Sex: Male : 01/30/1954 Arrival Date: 05/23/2019 Time: 00:36 Bed 4 Private MD: Diagnosis: Pneumonia;Sepsis Presentation: 05/23 00:28 Presenting complaint: EMS states: that they were toned for AMS and HTN. Pt has been fc recently d/c from hospital from pneumonia. Pt has hx dementia. When they arrived pt had sats of 92% on roomair and SBP of 90 with temp of 101.9. Given Tylenol by NH. Pt currently has wheezing and rhonchi to both lungs. Pt also has out of hospital DNR. Transition of care: patient was received from another setting of care (long-term care facility), [facility]. Onset of symptoms was May 23, 2019. Risk Assessment: Do you want to hurt yourself or someone else? Patient reports no desire to harm self or others. Initial Sepsis Screen: Does the patient meet any 2 criteria? RR > 20 per min. Altered Mental Status. HR > 90 bpm. Yes Does the patient have a suspected source of infection? Yes: Productive cough/pneumonia If YES to both, name of provider notified: Eduardo Jeffries MD Care prior to arrival: IV initiated. 18 GA, in the right forearm, Glucose check: 181. 00:28 Method Of Arrival: EMS: [facility] fc 00:28 Acuity: BERNARDA 2 fc Triage Assessment: 00:30 General: Appears in no apparent distress. uncomfortable, Behavior is moaning. rr5 Respiratory: Onset: The symptoms/episode began/occurred. 00:30 Respiratory: the patient has mild shortness of breath. rr5 Historical: - Allergies: 00:59 No Known Allergies; fc - Home Meds: 00:59 Aricept 10 mg Oral tab 1 tab nightly [Active]; Aspercreme (lidocaine) 4 % topical crea fc on at 9 am and off at 9 pm [Active]; aspirin 81 mg oral TbEC 1 tab once daily [Active]; Ativan 1 mg Oral tab 1 tab 2 times per day [Active]; atorvastatin 20 mg Oral tab 1 tab nightly [Active]; buspirone 15 mg Oral tab 1 tab 2 times per day [Active]; carbamazepine 100 mg Oral CM12 2 caps three times a day [Active]; Depakote Sprinkles 125 mg Oral cpSP 2 caps 3 times per day [Active]; docusate sodium 100 mg Oral cap 1 cap 2 times per day [Active]; bisacodyl 10 mg Rectal supp 1 suppository daily prn [Active]; finasteride 5 mg Oral tab 1 tab once daily [Active]; ipratropium-albuterol 0.5 mg-3 mg(2.5 mg base)/3 mL Inhl nebu 3 mL qid prn [Active]; Lexapro 10 mg Oral tab 1 tab once daily [Active]; metoprolol tartrate 50 mg Oral tab 1 tab 2 times per day [Active]; Miralax 17 gram/dose Oral powd once daily [Active]; Ocuvite 651-33-0-150 qs-erut-pw-mg oral cap twice a day [Active]; robitussin DM 10 ml bid prn [Active]; simethicone 80 mg Oral chew twice a day [Active]; acetaminophen 500 mg Oral tab 1 tab q 6 hrs prn [Active]; acetaminophen-codeine 300-30 mg Oral tab 1 tab three times a day [Active]; Zantac 150 mg oral tab 1 tab once daily [Active]; - PMHx: 00:59 Alzheimers; epilepsy; epistaxis; Pneumonia; Bronchitis; Hypertension; sepsis; GERD; fc Bipolar disorder; Anxiety; Hyperlipidemia; Anemia; insomnia; urine retention; CHF; DYSPHAGIA; constipation; Dementia; Depression; - PSHx: 00:59 left chest wall port a cath; fc - Immunization history:: Adult Immunizations unknown. - Social history:: Smoking status: Patient/guardian denies using tobacco. - Ebola Screening: : Patient negative for fever greater than or equal to 101.5 degrees Fahrenheit, and additional compatible Ebola Virus Disease symptoms Patient denies exposure to infectious person Patient denies travel to an Ebola-affected area in the 21 days before illness onset. - Family history:: not pertinent. - Hospitalizations: : No recent hospitalization is reported. Screenin:28 Abuse screen: Denies threats or abuse. Nutritional screening: No deficits noted. Tuberculosis screening: No symptoms or risk factors identified. 00:30 Fall Risk IV access (20 points). Gait- Impaired (20 pts.). Mental Status- rr5 Overestimates/Forgets Limitations (15 pts.). Total Ornelas Fall Scale indicates High Risk Score (45 or more points). Fall prevention measures have been instituted. Side Rails Up X 2 Placed Close to Nursing Station Frequent Obs/Assessments Occuring As available patient and family educated on Fall Prevention Program and Strategies. Assessment: 00:30 General: Appears in no apparent distress. Behavior is unable to speak,moaning. rr5 00:30 Pain: Unable to use pain scale. Patient appears to be moaning. Neuro: Level of rr5 Consciousness is awake, confused, Oriented to unable to assess. Cardiovascular: Capillary refill < 3 seconds Patient's skin is warm and dry. Rhythm is sinus tachycardia. Respiratory: Airway is patent Respiratory effort is even, unlabored, Respiratory pattern is tachypnea barrel chested noted Breath sounds are coarse bilaterally. GI: No signs and/or symptoms were reported involving the gastrointestinal system. : No signs and/or symptoms were reported regarding the genitourinary system. EENT: No signs and/or symptoms were reported regarding the EENT system. Derm: Skin is Skin temperature is warm Wound noted skin peeld head and upper extremities. Musculoskeletal: contractured. 00:30 Reassessment: port a cath at left chest noted. rr5 01:35 Reassessment: Patient appears in no apparent distress at this time. dr. jett came and rr5 examined the patient for admission. 02:00 Reassessment: Patient appears in no apparent distress at this time. suctioning done rr5 orally. 02:30 Reassessment: Patient appears in no apparent distress at this time. patient complaining rr5 of pain.ED provider informed with order made and carried out. 02:40 Reassessment: Patient appears in no apparent distress at this time. put on left side rr5 lying position. Vital Signs: 00:28 BP 120 / 77; Pulse 121; Resp 26; Temp 97.7(A); Pulse Ox 93% on R/A; Weight 36.29 kg fc (R); Height 5 ft. 0 in. (152.40 cm) (R); Pain 0/10; 01:10 BP 135 / 73; Pulse 124; Resp 25; Pulse Ox 95% on R/A; rr5 02:00 BP 125 / 70; Pulse 129; Resp 27; Pulse Ox 95% on R/A; rr5 02:30 BP 114 / 68; Pulse 131; Resp 28; Temp 98; Pulse Ox 96% on 2 lpm NC; rr5 02:57 BP 107 / 63; Pulse 115; Resp 23; Pulse Ox 95% on 2 lpm NC; rr5 00:28 Body Mass Index 15.62 (36.29 kg, 152.40 cm) fc Gowrie Coma Score: 00:30 Eye Response: spontaneous(4). Verbal Response: confused(4). Motor Response: obeys rr5 commands(6). Total: 14. 02:00 Eye Response: spontaneous(4). Verbal Response: confused(4). Motor Response: obeys rr5 commands(6). Total: 14. ED Course: 00:28 Arm band placed on Patient placed in an exam room, on a stretcher. fc 00:28 Patient has correct armband on for positive identification. Placed in gown. Bed in low fc position. Call light in reach. Side rails up X2. electronics engineering manager on. Pulse ox on. NIBP on. 00:28 No provider procedures requiring assistance completed. Maintain EMS IV. Dressing fc intact. Good blood return noted. Site clean \T\ dry. Gauge \T\ site: 18 gauge to right forearm. 00:36 Patient arrived in ED. fc 00:38 Eduardo Jeffries MD is Attending Physician. rn 00:40 Triage completed. fc 00:40 Rc Rodriguez RN is Primary Nurse. rr5 01:00 Inserted saline lock: 20 gauge in left forearm, using aseptic technique. Blood rr5 collected. 01:00 Initial lab(s) drawn, by or, sent to lab. First set of blood cultures drawn. rr5 01:27 Straight cath inserted, using sterile technique, Patient tolerated well. oe 01:35 Song Jett DO is Hospitalizing Provider. rn 01:49 XRAY Chest (1 view) In Process Unspecified. EDMS 02:50 Patient admitted, IV remains in place. intact, No redness/swelling at site. rr5 Administered Medications: 00:45 Drug: Xopenex 1.25 mg Route: Inhalation; rr5 01:45 Follow up: Response: No adverse reaction rr5 00:46 Drug: NS 0.9% 500 ml Route: IV; Rate: bolus; Site: right forearm; rr5 01:30 Follow up: Response: No adverse reaction; IV Status: Completed infusion; IV Intake: rr5 500ml 01:49 Drug: Cefepime 1 grams Route: IVPB; Rate: 200 ml/hr; Infused Over: 30 mins; Site: right rr5 forearm; 02:20 Follow up: Response: No adverse reaction; IV Status: Completed infusion; IV Intake: rr5 100ml 02:30 Drug: vancoMYCIN 1 grams Route: IVPB; Infused Over: 2 hrs; Site: right forearm; rr5 02:57 Follow up: Response: No adverse reaction; IV Status: Infusion continued upon admission; rr5 IV Intake: 60ml 02:34 Drug: Zofran 4 mg Route: IVP; Site: left forearm; rr5 02:57 Follow up: Response: No adverse reaction rr5 02:42 Drug: morphine 2 mg Route: IVP; Site: right antecubital; ea 02:57 Follow up: Response: No adverse reaction rr5 Intake: 01:30 IV: 500ml; Total: 500ml. rr5 02:20 IV: 100ml; Total: 600ml. rr5 02:57 IV: 60ml; Total: 660ml. rr5 Outcome: 01:36 Decision to Hospitalize by Provider. rn 02:50 Admitted to Tele accompanied by nurse, via stretcher, room .409, with oxygen, with rr5 chart, Report called to davide 02:50 Condition: stable 02:50 Instructed on the need for admit. 03:05 Patient left the ED. bb Signatures: Dispatcher [employer] EDMS Carol Asif RN RN fc Ballard, Brenda, RN RN bb Nieto, Roman, MD MD rn Espinosa, Orlando oe Antunez, Elena, RN RN ea Roque, Raymond, RN RN rr5 Corrections: (The following items were deleted from the chart) 02:33 02:30 Reassessment: Patient appears in no apparent distress at this time. patient rr5 complaining of pain.ED provider informed with order made and carried out. Patient denies pain at this time. rr5 02:54 02:30 BP 114 / 68; Pulse 131bpm; Resp 28bpm; Pulse Ox 96% RA; Temp 98F; rr5 rr5
--- NOTE | 2019-05-23 01:38 | EDPHYS ---
Physician Documentation [facility] Name: Brandin Baker Age: 65 yrs Sex: Male : 01/30/1954 Arrival Date: 05/23/2019 Time: 00:36 Bed 4 Private MD: ED Physician Eduardo Jeffries HPI: 05/23 00:41 This 65 yrs old Male presents to ER via EMS with complaints of Respiratory rn Distress. 00:41 The patient or guardian reports cough, difficulty breathing. Onset: The rn symptoms/episode began/occurred at an unknown time. Severity of symptoms: At their worst the symptoms were moderate, in the emergency department the symptoms are unchanged. Modifying factors: The symptoms are alleviated by nothing, the symptoms are aggravated by nothing. The patient has experienced similar episodes in the past. Per EMS, alf called 911 for AMS, trouble breathing, + hx of pneumonia, + fever. . Historical: - Allergies: 00:59 No Known Allergies; fc - Home Meds: 00:59 Aricept 10 mg Oral tab 1 tab nightly [Active]; Aspercreme (lidocaine) 4 % topical crea fc on at 9 am and off at 9 pm [Active]; aspirin 81 mg oral TbEC 1 tab once daily [Active]; Ativan 1 mg Oral tab 1 tab 2 times per day [Active]; atorvastatin 20 mg Oral tab 1 tab nightly [Active]; buspirone 15 mg Oral tab 1 tab 2 times per day [Active]; carbamazepine 100 mg Oral CM12 2 caps three times a day [Active]; Depakote Sprinkles 125 mg Oral cpSP 2 caps 3 times per day [Active]; docusate sodium 100 mg Oral cap 1 cap 2 times per day [Active]; bisacodyl 10 mg Rectal supp 1 suppository daily prn [Active]; finasteride 5 mg Oral tab 1 tab once daily [Active]; ipratropium-albuterol 0.5 mg-3 mg(2.5 mg base)/3 mL Inhl nebu 3 mL qid prn [Active]; Lexapro 10 mg Oral tab 1 tab once daily [Active]; metoprolol tartrate 50 mg Oral tab 1 tab 2 times per day [Active]; Miralax 17 gram/dose Oral powd once daily [Active]; Ocuvite 798-13-5-150 ah-javt-ml-mg oral cap twice a day [Active]; robitussin DM 10 ml bid prn [Active]; simethicone 80 mg Oral chew twice a day [Active]; acetaminophen 500 mg Oral tab 1 tab q 6 hrs prn [Active]; acetaminophen-codeine 300-30 mg Oral tab 1 tab three times a day [Active]; Zantac 150 mg oral tab 1 tab once daily [Active]; - PMHx: 00:59 Alzheimers; epilepsy; epistaxis; Pneumonia; Bronchitis; Hypertension; sepsis; GERD; fc Bipolar disorder; Anxiety; Hyperlipidemia; Anemia; insomnia; urine retention; CHF; DYSPHAGIA; constipation; Dementia; Depression; - PSHx: 00:59 left chest wall port a cath; fc - Immunization history:: Adult Immunizations unknown. - Social history:: Smoking status: Patient/guardian denies using tobacco. - Ebola Screening: : Patient negative for fever greater than or equal to 101.5 degrees Fahrenheit, and additional compatible Ebola Virus Disease symptoms Patient denies exposure to infectious person Patient denies travel to an Ebola-affected area in the 21 days before illness onset. - Family history:: not pertinent. - Hospitalizations: : No recent hospitalization is reported. ROS: 00:41 Unable to obtain ROS due to altered mental status, baseline dementia. rn Exam: 00:41 Constitutional: Thin cachectic male, in respiratory distress Head/Face: rn Normocephalic, atraumatic. ENT: MMM Cardiovascular: tachycardic, regular, no murmur Respiratory: Mild tachypnea, coarse bialteral breath sounds with diminished at bases. Abdomen/GI: soft, non-tender MS/ Extremity: Pulses equal, no cyanosis. Neuro: responds to questions, moves extremities, but incomprehensible speech Vital Signs: 00:28 BP 120 / 77; Pulse 121; Resp 26; Temp 97.7(A); Pulse Ox 93% on R/A; Weight 36.29 kg (R); Height 5 ft. 0 in. (152.40 cm) (R); Pain 0/10; 01:10 BP 135 / 73; Pulse 124; Resp 25; Pulse Ox 95% on R/A; rr5 02:00 BP 125 / 70; Pulse 129; Resp 27; Pulse Ox 95% on R/A; rr5 02:30 BP 114 / 68; Pulse 131; Resp 28; Temp 98; Pulse Ox 96% on 2 lpm NC; rr5 02:57 BP 107 / 63; Pulse 115; Resp 23; Pulse Ox 95% on 2 lpm NC; rr5 00:28 Body Mass Index 15.62 (36.29 kg, 152.40 cm) fc Olivia Coma Score: 00:30 Eye Response: spontaneous(4). Verbal Response: confused(4). Motor Response: obeys rr5 commands(6). Total: 14. 02:00 Eye Response: spontaneous(4). Verbal Response: confused(4). Motor Response: obeys rr5 commands(6). Total: 14. MDM: 00:38 Patient medically screened. rn 01:09 ED course: Pt DNR.. rn 01:12 Differential Diagnosis: Bronchitis Influenza Pneumonia. Data reviewed: vital signs, rn nurses notes, lab test result(s), radiologic studies, plain films, and as a result, I will admit patient. Counseling: I had a detailed discussion with the patient and/or guardian regarding: the historical points, exam findings, and any diagnostic results supporting the discharge/admit diagnosis, lab results, radiology results, the need for further work-up and treatment in the hospital. Admission orders: after a detailed discussion of the patient's condition and case, the admit orders are written by me. 05/23 00:40 Order name: CBC with Diff; Complete Time: : rn 05/23 00:40 Order name: Basic Metabolic Panel; Complete Time: : rn 05/23 00:40 Order name: Urine Culture rn 05/23 00:40 Order name: Urine Microscopic Only; Complete Time: 01:52 rn 05/23 00:40 Order name: Flu; Complete Time: : rn 05/23 00:40 Order name: Blood Culture Adult (2) rn 05/23 00:40 Order name: XRAY Chest (1 view) rn 05/23 00:40 Order name: Procalcitonin rn 05/23 00:40 Order name: N-Terminal Pro-brain Natriuretic Peptide; Complete Time: : rn 05/23 01:27 Order name: Urine Dipstick--Ancillary (enter results); Complete Time: : mw2 05/23 01:53 Order name: Lactate rn 05/23 00:40 Order name: IV Start; Complete Time: 01:06 rn 05/23 00:40 Order name: Urine Dipstick-Ancillary (obtain specimen); Complete Time: 01:27 rn Administered Medications: 00:45 Drug: Xopenex 1.25 mg Route: Inhalation; rr5 01:45 Follow up: Response: No adverse reaction rr5 00:46 Drug: NS 0.9% 500 ml Route: IV; Rate: bolus; Site: right forearm; rr5 01:30 Follow up: Response: No adverse reaction; IV Status: Completed infusion; IV Intake: rr5 500ml 01:49 Drug: Cefepime 1 grams Route: IVPB; Rate: 200 ml/hr; Infused Over: 30 mins; Site: right rr5 forearm; 02:20 Follow up: Response: No adverse reaction; IV Status: Completed infusion; IV Intake: rr5 100ml 02:30 Drug: vancoMYCIN 1 grams Route: IVPB; Infused Over: 2 hrs; Site: right forearm; rr5 02:57 Follow up: Response: No adverse reaction; IV Status: Infusion continued upon admission; rr5 IV Intake: 60ml 02:34 Drug: Zofran 4 mg Route: IVP; Site: left forearm; rr5 02:57 Follow up: Response: No adverse reaction rr5 02:42 Drug: morphine 2 mg Route: IVP; Site: right antecubital; ea 02:57 Follow up: Response: No adverse reaction rr5 Disposition: 05/23/19 01:36 Hospitalization ordered by Song Delarosa for Inpatient Admission. Preliminary diagnosis are Pneumonia, Sepsis. - Bed requested for Telemetry/MedSurg (Inpatient). - Status is Inpatient Admission. bb - Condition is Stable. - Problem is new. - Symptoms have improved. UTI on Admission? No Critical care time excluding procedures: 01:35 Critical care time: Bedside Care: 25 minutes, Consultation: 5 minutes. Total time: 30 rn minutes Signatures: Dispatcher [employer] EDMS Carol Asif RN RN fc Ballard, Brenda, RN RN bb Nieto, Roman, MD MD rn Garcia, Cindy, RN RN cg Antunez, Elena, RN RN ea Roque, Raymond RN RN rr5 Corrections: (The following items were deleted from the chart) 02:13 01:36 Hospitalization Ordered by Song Delarosa DO for Inpatient Admission. Preliminary cg diagnosis is Pneumonia; Sepsis. Bed requested for Telemetry/MedSurg (Inpatient). Status is Inpatient Admission. Condition is Stable. Problem is new. Symptoms have improved. UTI on Admission? No. rn 03:05 02:13 05/23/2019 01:36 Hospitalization Ordered by Song Delarosa DO for Inpatient bb Admission. Preliminary diagnosis is Pneumonia; Sepsis. Bed requested for Telemetry/MedSurg (Inpatient). Status is Inpatient Admission. Condition is Stable. Problem is new. Symptoms have improved. UTI on Admission? No. cg
[2019-05-23] MEDS ORDERED: VANCOMYCIN 1 GM/VIAL ONE (02:02)
[2019-05-23] MEDS ORDERED: CEFEPIME 1 GM/100 ML BAG IV ONE (02:02)
[2019-05-23] MEDS ORDERED: NA CHLORIDE 0.9% 500 ML ONE (02:02)
[2019-05-23] MEDS ORDERED: NA CHLORIDE 0.9% 0 ML IV ONE (02:03)
--- NOTE | 2019-05-23 02:26 | P.HP ---
Certification for Inpatient Patient admitted to: Inpatient With expected LOS: >2 Midnights Patient will require the following post-hospital care: Other (Back to alf with possible Hospice) Practitioner: I am a practitioner with admitting privileges, knowledge of patient current condition, hospital course, and medical plan of care. Services: Services provided to patient in accordance with Admission requirements found in Title 42 Section 412.3 of the Code of Federal Regulations Patient History Date of Service: 05/23/19 Primary Care Provider: [facility] Reason for admission: Shortness of breath, fever History of Present Illness: 65-year-old male with multiple medical problems including Alzheimer's dementia, CAD, hypertension, hyperlipidemia, bipolar disorder. Patient was brought in from [facility]. Most of the information came from the ER physician as the patient is not able to give accurate history due to his dementia. alf reports the patient was short of breath with fever. There was also some question of confusion. alf records indicate that the patient had been on Levaquin for pneumonia. The patient was tachycardic in the emergency room. He did not appear at tachypneic. No acute respiratory distress noted patient was given IV fluids. In the ER patient evaluated. White count 12.1, hemoglobin 9.7. Sodium 141, potassium 3.7. BUN of 29, creatinine 1.1 with a GFR of 62. Glucose 141. Pro calcitonin elevated at 3.53. Urinalysis negative. Influenza test negative. Chest x-ray revealed left lower lobe pneumonia. Patient was admitted for further evaluation. When I saw the patient in the ER, detention records indicate patient is DNR. Patient appears slightly improved but still tachycardic. Patient with dementia. Patient did not want to be hospitalized. I did try to get in contact with power of trust and estates attorney and detention without success to discuss hospitalization. Patient admitted for further failed outpatient treatment. Allergies No Known Allergies Allergy (Unverified 01/01/19 00:19) Home medications list reviewed: Yes Home Medications: Acetaminophen [Tylenol Extra Strength] 500 mg PO Q6HP PRN 01/01/19 Acetaminophen with Codeine [Tylenol with Codeine #3 Tablet] 1 each PO TID Aspirin [Aspirin EC 81 MG] 81 mg PO DAILY 01/01/19 Atorvastatin Calcium [Lipitor*] 20 mg PO BEDTIME 01/01/19 Bisacodyl [Dulcolax*] 10 mg RC DAILYPRN PRN 01/01/19 Buspirone HCl [Buspar] 15 mg PO BID 01/01/19 Carbamazepine 2 tab PO TID 01/01/19 Divalproex Sodium [Depakote] 250 mg PO TID 01/01/19 Docusate [Colace Cap*] 100 mg PO BID 01/01/19 Donepezil [Aricept*] 5 mg PO BEDTIME 01/01/19 Escitalopram Oxalate [Lexapro] 10 mg PO DAILY 01/01/19 Finasteride [Proscar*] 5 mg PO DAILY 01/01/19 Folic Acid 1 mg PO DAILY 01/01/19 Gabapentin [Neurontin*] 100 mg PO BEDTIME 01/01/19 LORazepam [Ativan*] 1 mg PO BID 01/01/19 Lactulose 15 ml PO TID 01/01/19 Metoprolol Tartrate [Lopressor*] 50 mg PO BID 01/01/19 Multivitamin [Daily Multivitamin] 1 each PO DAILY 01/01/19 Omeprazole [Prilosec] 40 mg PO DAILY 01/01/19 Polyethylene Glycol 3350 [Miralax] 17 gm PO DAILY 01/01/19 Vit A,C & E/Lutein/Minerals [Ocuvite Tablet] 1 tab PO BID 01/01/19 guaiFENesin [Robitussin 100MG/5ML*] 100 mg PO BIDP PRN 01/01/19 Amox/Clavulanate [Augmentin 875-125 Tab] 875 mg PO BID #28 tab 01/06/19 - Past Medical/Surgical History -: Alzheimer's disease -: Hypertension -: Hyperlipidemia -: Bipolar disorder -: BPH -: CAD -: Patient is DNR Past Surgical History: Unable to obtain Psychosocial/ Personal History: Patient lives at [facility] - Family History Family History: Reviewed- Non-Contributory - Social History Smoking Status: Unknown if ever smoked Alcohol use: No CD- Drugs: No Place of Residence: [facility] Review of Systems is unable to be obtained Respiratory: Shortness of Breath, As per HPI Physical Examination - Physical Exam General: Alert, In no apparent distress, Cooperative, Demented HEENT: Atraumatic, Normocephalic, PERRLA, Mucous membr. moist/pink Neck: Supple Respiratory: Crackles/rales (Crackles to the left base) Cardiovascular: Abnormal pulses (Sinus tachycardia with rate around 120) Gastrointestinal: Normal bowel sounds, Soft and benign, Non-distended, No tenderness, No masses, No rebound, No guarding Musculoskeletal: No erythema, No tenderness, No warmth Integumentary: No erythema, No warmth, No cyanosis Neurological: Normal speech, Normal strength at 5/5 x4 extr, Normal tone, Dementia - Studies Laboratory Data (last 24 hrs) 05/23/19 01:00: Sodium 141, Potassium 3.7, BUN 29 H, Creatinine 1.19, Glucose 141 H 05/23/19 01:00: WBC 12.1 H, Hgb 9.7 L, Hct 29.1 L, Plt Count 212 Microbiology Data (last 24 hrs): 05/23/19 00:50 Nasopharnyx Influenza Type A Antigen Screen - Final 05/23/19 00:50 Nasopharnyx Influenza Type B Antigen Screen - Final Assessment and Plan - Plan Impression: Shortness of breath and fever secondary to Left lower lobe pneumonia, failed outpatient therapy Tachycardia likely related to dehydration Hypertension Hyperlipidemia Alzheimer's dementia BPH Anemia of chronic disease Bipolar disorder Plan: Shortness of breath and fever secondary to Left lower lobe pneumonia, failed outpatient therapy: Patient will be admitted for further evaluation and treatment. I did leave a message with the power of trust and estates attorney and detention to discuss hospitalization. The patient did not want to be hospitalized but due to failed outpatient therapy, patient hospitalized. It appears patient had been on Levaquin recently for pneumonia. Continue IV fluids for hydration. Will continue with IV vancomycin and cefepime to cover for pneumonia. Will monitor and recheck chest x-ray. Will provide medication for cough and congestion. Will maintain sats above 90%. Will provide Atrovent and Xopenex as needed for shortness of breath. Respiratory consulted to maintain saturations. Patient is do not resuscitate. Patient will return back to the detention once clinically stable. Will need to consider hospice at discharge at the detention. Continue with SCD for DVT prophylaxis. Tachycardia likely related to dehydration: Continue with IV fluids. Will monitor and adjust appropriately. Electrolyte protocol in place. Hypertension: Restart detention medication of metoprolol 50 mg 1 pill twice daily. Will monitor and adjust appropriately. Hyperlipidemia: Restart detention medication of Lipitor 20 mg daily. Alzheimer's dementia: Restart detention medication Aricept 5 mg daily. BPH: Restart detention medication of finasteride 5 mg at bedtime. Anemia of chronic disease: Will monitor closely. Bipolar disorder: Continue detention medication of Lexapro 10 mg daily, buspirone 15 mg 1 pill twice daily, carbamazepine 200 mg 3 times a day, and Depakote 250 mg 1 pill 3 times a day. Discharge Plan: [facility] Plan to discharge in: 72 Hours - Advance Directives Does patient have a Living Will: No Does patient have a Durable POA for Healthcare: No - Code Status/Comfort Care Code Status Assessed: Yes (Patient is do not resuscitate. alf paperwork reviewed.) Time Spent Managing Pts Care (In Minutes): 55
[2019-05-23] MEDS ORDERED: NA CHLORIDE 0.9% 250 ML ONE (02:42)
[2019-05-23] MEDS ORDERED: MORPHINE 2 MG/ML SYR ONE (02:51)
[2019-05-23] MEDS ORDERED: ONDANSETRON 4 MG/2 ML VIAL ONE (02:51)
[2019-05-23] MEDS ORDERED: BENZONATATE 100 MG CAP PO PRN (03:02)
[2019-05-23] MEDS ORDERED: ONDANSETRON 4 MG/2 ML VIAL IV PRN (03:02)
[2019-05-23] MEDS ORDERED: GUAIFENESIN 600 MG SA TAB PO PRN (03:02)
[2019-05-23] MEDS ORDERED: NA CHLORIDE 0.9% 1,000 ML IV SCH (03:02)
[2019-05-23] MEDS ORDERED: ACETAMINOPHEN 500 MG TAB PO PRN (03:02)
--- NOTE | 2019-05-23 08:10 | RAD REPORT ---
EXAM DESCRIPTION: RAD - Chest Single View - 05/23/2019 1:46 am CLINICAL HISTORY: Transient alteration awareness, hypertension, wheezing, fever COMPARISON: CT chest May 14 TECHNIQUE: AP portable chest image was obtained 0104 hours . FINDINGS: Baseline fibrotic lung pattern is present. Left subclavian Port-A-Cath is in place. Inters titial stranding is present in the right lung base. This matches the CT chest finding. Parenchymal op acification mid and lower left lung field is present. This is similar or perhaps slightly worse than the CT chest examination. Shallow inspiration accentuates the chest findings. Heart and vasculature are normal. No measurable pleural effusion and no pneumothorax. No acute bony abnormality seen. No acute aortic findings suspected. IMPRESSION: Bilateral lung pneumonia findings, worse on the left, similar or slightly worse than Apr CT chest.
[2019-05-23] MEDS: CARBAMAZEPINE 200 MG TAB PO SCH ×3 (08:58→22:10)
[2019-05-23] MEDS: DOCUSATE NA 100 MG CAP PO SCH (08:58)
[2019-05-23] MEDS: ESCITALOPRAM 20 MG TAB PO SCH (08:58)
[2019-05-23] MEDS: BUSPIRONE HCL 5 MG TABLET PO SCH ×2 (08:58→22:09)
[2019-05-23] MEDS: ASPIRIN EC 81 MG TAB PO SCH (08:58)
[2019-05-23] MEDS: ENOXAPARIN 40 MG/0.4 ML SQ SCH (08:59)
[2019-05-23] MEDS: METOPROLOL TAR 50 MG TAB PO SCH ×2 (08:59→22:09)
[2019-05-23] MEDS ORDERED: CEFEPIME 1 GM/VIAL IV SCH (09:00)
--- NOTE | 2019-05-23 09:08 | P.PN ---
Subjective Date of Service: 05/23/19 (Hospitalist) Primary Care Provider: [facility] Chief Complaint: Pneumonia Patient is 65 years of age nonverbal admitted with pneumonia Review of Systems is unable to be obtained Physical Examination - Vital Signs Temperature: 99 F Blood Pressure: 114/61 Pulse: 111 Respirations: 16 Pulse Ox (%): 96 - Physical Exam General: Alert, In no apparent distress, Other (Nonverbal) Neck: Supple Respiratory: Crackles/rales (Crackles on the left side) Cardiovascular: No edema, Normal pulses - Studies Laboratory Data (last 24 hrs) 05/23/19 01:00: Sodium 141, Potassium 3.7, BUN 29 H, Creatinine 1.19, Glucose 141 H 05/23/19 01:00: WBC 12.1 H, Hgb 9.7 L, Hct 29.1 L, Plt Count 212 Microbiology Data (last 24 hrs): 05/23/19 00:50 Nasopharnyx Influenza Type A Antigen Screen - Final 05/23/19 00:50 Nasopharnyx Influenza Type B Antigen Screen - Final Assessment & Plan - Problems (Diagnosis) (1) Pneumonia Current Visit: No Status: Acute Plan: Patient is 65 years of age admitted with pneumonia white count is elevated cultures all pending pro calcitonin level elevated chest x-ray reviewed vital signs are stable continue with broad-spectrum antibiotics he is DNR Qualifiers: Pneumonia type: due to unspecified organism Laterality: bilateral Lung location: unspecified part of lung Qualified Code(s): J18.9 - Pneumonia, unspecified organism
[2019-05-23] MEDS: DIVALPROEX DR 250 MG TAB PO SCH ×3 (09:24→22:10)
[2019-05-23] MEDS: CEFEPIME 1 GM in NA CHLORIDE 0.9% 100 ML IV SCH (13:09)
[2019-05-23] MEDS ORDERED: POTASSIUM 25 MEQ EFFERV TAB PO ONE (19:01)
--- NOTE | 2019-05-23 21:14 | EKG ---
Test Date: 2019-05-23 Test Time: 00:40:10 Special Population Paraprofessional: RR MEASUREMENT RESULTS: Intervals: Rate: 123 NV: 152 QRSD: 102 QT: 312 QTc: 446 [place]: P: -6 NV: 152 QRS: 30 T: -5 INTERPRETIVE STATEMENTS: Sinus tachycardia with premature atrial complexes Otherwise normal ECG Compared to ECG 03/06/2019 21:07:31 Atrial premature complex(es) now present Sinus rhythm no longer present Electronically Signed On 05-23-19 21:13:31 CDT by Harry Montero
[2019-05-23] MEDS: FINASTERIDE 5 MG TAB PO SCH (22:09)
[2019-05-23] MEDS: ATORVASTATIN 20 MG TAB PO SCH (22:10)
[2019-05-23] MEDS: DONEPEZIL HCL 5 MG TAB PO SCH (22:10)
[2019-05-23] MEDS: GABAPENTIN 100 MG CAP PO SCH (22:10)
[2019-05-24] MEDS: IPRATROPIUM BROM 0.5MG/2.5ML NEB PRN ×2 (00:15→07:25)
[2019-05-24] MEDS: LEVALBUTEROL 0.63 MG/3 ML NEB NEB PRN ×2 (00:15→07:25)
[2019-05-24] MEDS: CEFEPIME 1 GM in NA CHLORIDE 0.9% 100 ML IV SCH ×2 (01:37→14:52)
[2019-05-24] MEDS: VANCOMYCIN 1 GM in NA CHLORIDE 0.9% 250 ML IVPB SCH (02:27)
[2019-05-24 06:07] LABS: Absolute Lymphocytes (CBC) 0.4 K/uL (0.7-4.9); Basophils % 0.2 % (0-1.3); Hematocrit 31.9 % (39.6-49.0); Lymphocytes % 3.3 % (15.3-44.8); MPV 10.5 fL (7.6-11.3); RBC Red Blood Cell Count 3.09 M/uL (4.33-5.43)
[2019-05-24 07:17] LABS: Magnesium 2.2 mg/dL (1.8-2.4)
--- NOTE | 2019-05-24 07:47 | RAD REPORT ---
EXAM DESCRIPTION: RAD - Chest Single View - 05/24/2019 6:37 am CLINICAL HISTORY: Left lower lobe pneumonia COMPARISON: May 23 TECHNIQUE: AP portable chest image was obtained 0632 hours . FINDINGS: Left lower lobe pleural and parenchymal opacification on the prior study is slightly progr essive. There is new airspace disease in the lower right lung field. Port-A-Cath remains in place. No other tube or line. Heart and vasculature are normal. No measurable pleural effusion and no pneumoth orax. No acute bony abnormality seen. No acute aortic findings suspected. IMPRESSION: New right lung base pneumonia. Stable or minimally progressive left lower lung field pneumonia.
[2019-05-24 08:01] LABS: Urine White Blood Cell Casts OK
[2019-05-24 08:02] LABS: Anisocytosis 1+; Blood Morphology Comment NOTED (NOT SEEN); Platelet Estimate ADEQ; Poikilocytosis 1+
[2019-05-24] MEDS: ESCITALOPRAM 20 MG TAB PO SCH (09:57)
[2019-05-24] MEDS: BUSPIRONE HCL 5 MG TABLET PO SCH ×2 (09:57→21:00)
[2019-05-24] MEDS: CARBAMAZEPINE 200 MG TAB PO SCH ×3 (09:58→21:00)
[2019-05-24] MEDS: METOPROLOL TAR 50 MG TAB PO SCH ×2 (09:58→21:00)
[2019-05-24] MEDS: DIVALPROEX DR 250 MG TAB PO SCH ×3 (09:58→21:00)
[2019-05-24] MEDS: ASPIRIN EC 81 MG TAB PO SCH (09:59)
[2019-05-24] MEDS: ENOXAPARIN 40 MG/0.4 ML SQ SCH (09:59)
[2019-05-24] MEDS: DOCUSATE NA 100 MG CAP PO SCH (09:59)
--- NOTE | 2019-05-24 15:20 | RAD REPORT ---
EXAM DESCRIPTION: RAD - Barium Swallow Modified - 05/24/2019 3:06 pm CLINICAL HISTORY: Coughing and choking. Aspiration pneumonia FINDINGS: Laryngeal peneteration not cleared w/ thin, nectar residual (after swallow),puree. All li myles to be aspirated upon inhalation or secondary to gravity. Aspiration: no cough with thin honey Pharyngeal residue: vallecular,pyriform,posterior wall SEVERE with honey and pudding, moderate with n ectar Fluoroscopy 3.2 minutes. Twenty-six fluoroscopic spot images obtained.
--- NOTE | 2019-05-24 15:47 | P.PN ---
Subjective Date of Service: 05/24/19 Primary Care Provider: [facility] Chief Complaint: Pneumonia Patient seen and examined at bedside with RN. Chart reviewed. Case discussed with pulmonology at this time. This morning patient continues to be demented audible wheezing overnight no complaints to offer Review of Systems 10-point ROS is otherwise unremarkable Physical Examination - Vital Signs Temperature: 99.2 F Blood Pressure: 110/59 Pulse: 84 Respirations: 20 Pulse Ox (%): 97 - Physical Exam General: In no apparent distress, Oriented x1, Demented, Confused Neck: Supple, JVD not distended Respiratory: Normal air movement, Expiratory wheezes, Inspiratory wheezes Cardiovascular: Regular rate/rhythm, Normal S1 S2 Gastrointestinal: Normal bowel sounds, No tenderness Musculoskeletal: No tenderness Integumentary: No rashes Neurological: Normal tone, Normal affect Lymphatics: No axilla or inguinal lymphadenopathy - Studies Medications List Reviewed: Yes Assessment And Plan - Current Problems (Diagnosis) (1) Pneumonia Current Visit: No Status: Acute Plan: Left lower lobe pneumonia noted on the chest x-ray -elevated white count along with pro calcitonin level -currently on IV cefepime and vancomycin will continue that here in the hospital -blood culture and sputum cultures pending at this time Qualifiers: Pneumonia type: due to unspecified organism Laterality: left Lung location: lower lobe of lung Qualified Code(s): J18.1 - Lobar pneumonia, unspecified organism (2) Alzheimer's dementia Current Visit: No Status: Chronic Qualifiers: Alzheimer's disease onset: unspecified onset Dementia behavioral disturbance: with behavioral disturbance Qualified Code(s): G30.9 - Alzheimer' s disease, unspecified; F02.81 - Dementia in other diseases classified elsewhere with behavioral disturbance (3) Congestive heart failure Current Visit: No Status: Chronic Qualifiers: Heart failure type: diastolic Heart failure chronicity: chronic Qualified Code(s): I50.32 - Chronic diastolic (congestive) heart failure (4) Dysphagia Current Visit: No Status: Chronic Qualifiers: Dysphagia type: oropharyngeal phase Qualified Code(s): R13.12 - Dysphagia, oropharyngeal phase (5) Hyperlipidemia Current Visit: No Status: Chronic Qualifiers: Hyperlipidemia type: mixed hyperlipidemia Qualified Code(s): E78.2 - Mixed hyperlipidemia (6) Hypertension Current Visit: No Status: Chronic Qualifiers: Hypertension type: essential hypertension Qualified Code(s): I10 - Essential (primary) hypertension - Plan Pending clinical improvement at this time will have patient worked with speech therapy along with occupational therapy at this time. Discharge Plan: Home Plan to discharge in: Greater than 2 days - Code Status/Comfort Care Code Status Assessed: Yes Critical Care: No
[2019-05-24] MEDS: FINASTERIDE 5 MG TAB PO SCH (21:00)
[2019-05-24] MEDS: GABAPENTIN 100 MG CAP PO SCH (21:00)
[2019-05-24] MEDS: ATORVASTATIN 20 MG TAB PO SCH (21:00)
[2019-05-24] MEDS: DONEPEZIL HCL 5 MG TAB PO SCH (21:00)
[2019-05-25] MEDS: CEFEPIME 1 GM in NA CHLORIDE 0.9% 100 ML IV SCH (01:11)
[2019-05-25] MEDS: VANCOMYCIN 1 GM in NA CHLORIDE 0.9% 250 ML IVPB SCH (03:42)
[2019-05-25 06:13] LABS: Absolute Lymphocytes (CBC) 0.5 K/uL (0.7-4.9); Basophils % 0.2 % (0-1.3); Hematocrit 30.2 % (39.6-49.0); Lymphocytes % 3.7 % (15.3-44.8); MPV 9.7 fL (7.6-11.3); RBC Red Blood Cell Count 2.97 M/uL (4.33-5.43)
[2019-05-25 06:37] LABS: BUN Blood Urea Nitrogen 36 mg/dL (7-18); Bicarbonate 30 mmol/L (21-32); Glucose Level 118 mg/dL (74-106); Magnesium 2.5 mg/dL (1.8-2.4); Potassium 3.8 mmol/L (3.5-5.1); Sodium Level 149 mmol/L (136-145)
[2019-05-25] MEDS: ESCITALOPRAM 20 MG TAB PO SCH (08:10)
[2019-05-25] MEDS: DIVALPROEX DR 250 MG TAB PO SCH ×3 (08:10→20:38)
[2019-05-25] MEDS: ENOXAPARIN 40 MG/0.4 ML SQ SCH (08:10)
[2019-05-25] MEDS: DOCUSATE NA 100 MG CAP PO SCH (08:10)
[2019-05-25] MEDS: METOPROLOL TAR 50 MG TAB PO SCH ×2 (08:10→20:39)
[2019-05-25] MEDS: ASPIRIN EC 81 MG TAB PO SCH (08:10)
[2019-05-25] MEDS: BUSPIRONE HCL 5 MG TABLET PO SCH ×2 (08:10→20:38)
[2019-05-25] MEDS: CARBAMAZEPINE 200 MG TAB PO SCH ×3 (09:00→20:39)
--- NOTE | 2019-05-25 12:42 | P.PN ---
Subjective Date of Service: 05/25/19 Primary Care Provider: [facility] Chief Complaint: Pneumonia Patient seen and examined at bedside with RN. Chart reviewed. Case discussed with pulmonology at this time. This morning patient continues to be at his baseline mentation moe. Denies having Fever, chills, N/V Review of Systems 10-point ROS is otherwise unremarkable Physical Examination - Vital Signs Temperature: 97.9 F Blood Pressure: 120/73 Pulse: 87 Respirations: 13 Pulse Ox (%): 88 - Physical Exam General: In no apparent distress, Oriented x1, Demented HEENT: Atraumatic, PERRLA, EOMI Neck: Supple, JVD not distended Respiratory: Normal air movement, Crackles/rales Cardiovascular: Regular rate/rhythm, Normal S1 S2 Gastrointestinal: Normal bowel sounds, No tenderness Musculoskeletal: No tenderness Integumentary: No rashes Neurological: Normal tone, Normal affect, Abnormal speech Lymphatics: No axilla or inguinal lymphadenopathy - Studies Microbiology Data (last 24 hrs): 05/23/19 01:26 Catheterized Urine [place] Count - Final <10,000 CFU/ML. 05/23/19 01:26 Catheterized Urine - Final No growth. Medications List Reviewed: Yes Assessment And Plan - Current Problems (Diagnosis) (1) Pneumonia Current Visit: No Status: Acute Plan: Left lower lobe pneumonia noted on the chest x-ray -elevated white count along with pro calcitonin level -currently on IV cefepime and vancomycin will continue that here in the hospital -blood culture and sputum cultures pending at this time. prelim + for Gram - rods Qualifiers: Pneumonia type: due to unspecified organism Laterality: left Lung location: lower lobe of lung Qualified Code(s): J18.1 - Lobar pneumonia, unspecified organism (2) Alzheimer's dementia Current Visit: No Status: Chronic Qualifiers: Alzheimer's disease onset: unspecified onset Dementia behavioral disturbance: with behavioral disturbance Qualified Code(s): G30.9 - Alzheimer' s disease, unspecified; F02.81 - Dementia in other diseases classified elsewhere with behavioral disturbance (3) Congestive heart failure Current Visit: No Status: Chronic Qualifiers: Heart failure type: diastolic Heart failure chronicity: chronic Qualified Code(s): I50.32 - Chronic diastolic (congestive) heart failure (4) Dysphagia Current Visit: No Status: Chronic Qualifiers: Dysphagia type: oropharyngeal phase Qualified Code(s): R13.12 - Dysphagia, oropharyngeal phase (5) Hyperlipidemia Current Visit: No Status: Chronic Qualifiers: Hyperlipidemia type: mixed hyperlipidemia Qualified Code(s): E78.2 - Mixed hyperlipidemia (6) Hypertension Current Visit: No Status: Chronic Qualifiers: Hypertension type: essential hypertension Qualified Code(s): I10 - Essential (primary) hypertension - Plan Pending clinical improvement at this time. will have patient worked with speech therapy along with occupational therapy at this time. Family considering hospice care at the [facility]. Discharge Plan: Home Plan to discharge in: Greater than 2 days - Code Status/Comfort Care Code Status Assessed: Yes Critical Care: No
[2019-05-25] MEDS: CEFEPIME/SWI 1gm 10 ML IV SCH (14:30)
[2019-05-25] MEDS: DONEPEZIL HCL 5 MG TAB PO SCH (20:38)
[2019-05-25] MEDS: ATORVASTATIN 20 MG TAB PO SCH (20:39)
[2019-05-25] MEDS: FINASTERIDE 5 MG TAB PO SCH (20:39)
[2019-05-25] MEDS: GABAPENTIN 100 MG CAP PO SCH (20:39)
[2019-05-25] MEDS ORDERED: VANCOMYCIN 1 GM in NA CHLORIDE 0.9% 250 ML IVPB SCH (22:00)
[2019-05-25] MEDS ORDERED: LORazepam 2 MG/ML VIAL IV ONE (23:39)
[2019-05-26] MEDS: CEFEPIME/SWI 1gm 10 ML IV SCH (02:09)
[2019-05-26 06:18] LABS: Absolute Lymphocytes (CBC) 1.1 K/uL (0.7-4.9); Basophils % 0.3 % (0-1.3); Hematocrit 31.9 % (39.6-49.0); Lymphocytes % 9.2 % (15.3-44.8); MPV 10.8 fL (7.6-11.3); RBC Red Blood Cell Count 3.11 M/uL (4.33-5.43)
[2019-05-26 06:25] LABS: BUN Blood Urea Nitrogen 41 mg/dL (7-18); Bicarbonate 29 mmol/L (21-32); Glucose Level 98 mg/dL (74-106); Magnesium 2.4 mg/dL (1.8-2.4); Potassium 3.5 mmol/L (3.5-5.1); Sodium Level 151 mmol/L (136-145)
[2019-05-26] MEDS: IPRATROPIUM BROM 0.5MG/2.5ML NEB PRN (07:38)
[2019-05-26] MEDS: LEVALBUTEROL 0.63 MG/3 ML NEB NEB PRN (07:38)
[2019-05-26] MEDS ORDERED: KCL 20 MEQ/100 mL IVPB 20 MEQ/100 ML BAG IV SCH (08:00)
[2019-05-26] MEDS: ENOXAPARIN 40 MG/0.4 ML SQ SCH (08:03)
[2019-05-26] MEDS: ASPIRIN EC 81 MG TAB PO SCH (08:04)
[2019-05-26] MEDS: DIVALPROEX DR 250 MG TAB PO SCH ×3 (08:04→21:00)
[2019-05-26] MEDS: BUSPIRONE HCL 5 MG TABLET PO SCH ×2 (08:04→21:00)
[2019-05-26] MEDS: DOCUSATE NA 100 MG CAP PO SCH (08:04)
[2019-05-26] MEDS: METOPROLOL TAR 50 MG TAB PO SCH ×2 (08:04→21:00)
[2019-05-26] MEDS: ESCITALOPRAM 20 MG TAB PO SCH (08:04)
[2019-05-26] MEDS: CARBAMAZEPINE 200 MG TAB PO SCH ×3 (08:05→21:00)
[2019-05-26] MEDS: Meropenem 500 MG in NA CHLORIDE 0.9% 100 ML IV SCH ×2 (09:00→16:07)
[2019-05-26] MEDS ORDERED: Meropenem 500 MG VIAL IV SCH (09:00)
[2019-05-26] MEDS: D5W 1,000 ML IV SCH (10:20)
--- NOTE | 2019-05-26 16:45 | P.PN ---
Subjective Date of Service: 05/26/19 Primary Care Provider: [facility] Chief Complaint: Pneumonia Patient seen and examined at bedside with RN. Chart reviewed. Case discussed with pulmonology at this time. This morning patient continues to be at his baseline mentation moe. Denies having Fever, chills, N/V blood cultures positive for E.SBL. Contacted family member regarding hospice care awaiting phone call Review of Systems 10-point ROS is otherwise unremarkable Physical Examination - Vital Signs Temperature: 97.6 F Blood Pressure: 152/70 Pulse: 87 Respirations: 17 Pulse Ox (%): 97 - Physical Exam General: Alert, In no apparent distress, Oriented x1, Cachectic, Demented Respiratory: Normal air movement, Crackles/rales, Expiratory wheezes, Inspiratory wheezes Cardiovascular: Regular rate/rhythm, Normal S1 S2 Gastrointestinal: Normal bowel sounds, No tenderness Musculoskeletal: No tenderness Integumentary: No rashes Neurological: Normal tone, Normal affect, Abnormal speech Lymphatics: No axilla or inguinal lymphadenopathy - Studies Medications List Reviewed: Yes Assessment And Plan - Current Problems (Diagnosis) (1) Pneumonia Current Visit: No Status: Acute Plan: Left lower lobe pneumonia noted on the chest x-ray -currently on IV vancomycin and meropenem will continue that here in the hospital -blood culture positive for E.S.BL sputum culture pending at this time -chest x-ray this morning with mild improvement -will have a discussion with the family member regarding further plan of care will continue with current management in the meantime Qualifiers: Pneumonia type: due to unspecified organism Laterality: left Lung location: lower lobe of lung Qualified Code(s): J18.1 - Lobar pneumonia, unspecified organism (2) Alzheimer's dementia Current Visit: No Status: Chronic Qualifiers: Alzheimer's disease onset: unspecified onset Dementia behavioral disturbance: with behavioral disturbance Qualified Code(s): G30.9 - Alzheimer' s disease, unspecified; F02.81 - Dementia in other diseases classified elsewhere with behavioral disturbance (3) Congestive heart failure Current Visit: No Status: Chronic Qualifiers: Heart failure type: diastolic Heart failure chronicity: chronic Qualified Code(s): I50.32 - Chronic diastolic (congestive) heart failure (4) Dysphagia Current Visit: No Status: Chronic Qualifiers: Dysphagia type: oropharyngeal phase Qualified Code(s): R13.12 - Dysphagia, oropharyngeal phase (5) Hyperlipidemia Current Visit: No Status: Chronic Qualifiers: Hyperlipidemia type: mixed hyperlipidemia Qualified Code(s): E78.2 - Mixed hyperlipidemia (6) Hypertension Current Visit: No Status: Chronic Qualifiers: Hypertension type: essential hypertension Qualified Code(s): I10 - Essential (primary) hypertension - Plan Pending clinical improvement at this time. will have patient worked with speech therapy along with occupational therapy at this time. Family considering hospice care at the [facility]. We to make the final decision yet will contact family member again. Discharge Plan: Intermediate Plan to discharge in: 48 Hours - Code Status/Comfort Care Code Status Assessed: Yes Critical Care: No
[2019-05-26] MEDS: GABAPENTIN 100 MG CAP PO SCH (21:00)
[2019-05-26] MEDS: DONEPEZIL HCL 5 MG TAB PO SCH (21:00)
[2019-05-26] MEDS: ATORVASTATIN 20 MG TAB PO SCH (21:00)
[2019-05-26] MEDS: FINASTERIDE 5 MG TAB PO SCH (21:00)
[2019-05-26] MEDS ORDERED: PANTOPRAZOLE 40 MG INJ IVP ONE (21:09)
[2019-05-26] MEDS ORDERED: SODIUM CHLORIDE 0.9% 10ML INJ IV PRN (21:09)
[2019-05-26] MEDS ORDERED: MORPHINE 4 MG/ML SYR IV PRN (21:11)
--- NOTE | 2019-05-26 22:09 | EKG ---
Test Date: 2019-05-26 Test Time: 21:24:13 Export Manager: RT Heck MEASUREMENT RESULTS: Intervals: Rate: 54 CO: 140 QRSD: 112 QT: 436 QTc: 413 [place]: P: 58 CO: 140 QRS: 35 T: 55 INTERPRETIVE STATEMENTS: Sinus bradycardia with sinus arrhythmia Nonspecific T wave abnormality Abnormal ECG Compared to ECG 05/23/2019 00:40:10 T-wave abnormality now present Sinus tachycardia no longer present Atrial premature complex(es) no longer present Electronically Signed On 05-26-19 22:08:34 CDT by Harry Montero
[2019-05-27] MEDS: D5W 1,000 ML IV SCH ×2 (00:06→16:11)
[2019-05-27] MEDS: Meropenem 500 MG in NA CHLORIDE 0.9% 100 ML IV SCH ×3 (00:06→17:30)
[2019-05-27 06:21] LABS: BUN Blood Urea Nitrogen 30 mg/dL (7-18); Bicarbonate 33 mmol/L (21-32); Glucose Level 132 mg/dL (74-106); Potassium 3.5 mmol/L (3.5-5.1); Sodium Level 151 mmol/L (136-145)
[2019-05-27] MEDS ORDERED: KCL 20 MEQ/100 mL IVPB 20 MEQ/100 ML BAG IV SCH (08:00)
[2019-05-27] MEDS: METOPROLOL TAR 50 MG TAB PO SCH ×2 (09:00→21:00)
[2019-05-27] MEDS: ASPIRIN EC 81 MG TAB PO SCH (09:00)
[2019-05-27] MEDS: CARBAMAZEPINE 200 MG TAB PO SCH ×3 (09:00→21:00)
[2019-05-27] MEDS: ESCITALOPRAM 20 MG TAB PO SCH (09:00)
[2019-05-27] MEDS: BUSPIRONE HCL 5 MG TABLET PO SCH ×2 (09:00→21:00)
[2019-05-27] MEDS: DIVALPROEX DR 250 MG TAB PO SCH ×3 (09:00→21:00)
[2019-05-27] MEDS: DOCUSATE NA 100 MG CAP PO SCH (09:00)
[2019-05-27] MEDS: ENOXAPARIN 40 MG/0.4 ML SQ SCH (09:44)
--- NOTE | 2019-05-27 13:11 | P.PN ---
Subjective Date of Service: 05/27/19 Primary Care Provider: [facility] Chief Complaint: Pneumonia Patient seen and examined at bedside with RN. Chart reviewed. Case discussed with pulmonology at this time. This morning patient continues to be at his baseline mentation moe. Denies having Fever, chills, N/V blood cultures positive for E.SBL. No waiting for PICC line placement for transfer back to the longterm Review of Systems 10-point ROS is otherwise unremarkable Physical Examination - Vital Signs Temperature: 98.5 F Blood Pressure: 112/55 Pulse: 60 Respirations: 14 Pulse Ox (%): 98 - Physical Exam General: In no apparent distress, Demented HEENT: Atraumatic, PERRLA, EOMI Neck: Supple, JVD not distended Respiratory: Clear to auscultation bilaterally, Normal air movement Cardiovascular: Regular rate/rhythm, Normal S1 S2 Gastrointestinal: Normal bowel sounds, No tenderness Musculoskeletal: No tenderness Integumentary: No rashes Neurological: Normal speech, Normal tone, Normal affect Lymphatics: No axilla or inguinal lymphadenopathy - Studies Medications List Reviewed: Yes Assessment And Plan - Current Problems (Diagnosis) (1) Pneumonia Current Visit: No Status: Acute Plan: Left lower lobe pneumonia noted on the chest x-ray -currently on IV meropenem will continue that here in the hospital -blood culture positive for E.S.BL sputum culture negative at this time -PICC line placement for long-term antibiotics at this time Qualifiers: Pneumonia type: due to unspecified organism Laterality: left Lung location: lower lobe of lung Qualified Code(s): J18.1 - Lobar pneumonia, unspecified organism (2) Alzheimer's dementia Current Visit: No Status: Chronic Qualifiers: Alzheimer's disease onset: unspecified onset Dementia behavioral disturbance: with behavioral disturbance Qualified Code(s): G30.9 - Alzheimer' s disease, unspecified; F02.81 - Dementia in other diseases classified elsewhere with behavioral disturbance (3) Congestive heart failure Current Visit: No Status: Chronic Qualifiers: Heart failure type: diastolic Heart failure chronicity: chronic Qualified Code(s): I50.32 - Chronic diastolic (congestive) heart failure (4) Dysphagia Current Visit: No Status: Chronic Qualifiers: Dysphagia type: oropharyngeal phase Qualified Code(s): R13.12 - Dysphagia, oropharyngeal phase (5) Hyperlipidemia Current Visit: No Status: Chronic Qualifiers: Hyperlipidemia type: mixed hyperlipidemia Qualified Code(s): E78.2 - Mixed hyperlipidemia (6) Hypertension Current Visit: No Status: Chronic Qualifiers: Hypertension type: essential hypertension Qualified Code(s): I10 - Essential (primary) hypertension - Plan Pending clinical improvement at this time. Awaiting PICC line placement at this time for long-term antibiotics and patient then will be discharged back to the longterm once accepted there. Discharge Plan: Home Plan to discharge in: Greater than 2 days - Code Status/Comfort Care Code Status Assessed: Yes Critical Care: No
[2019-05-27] MEDS: FINASTERIDE 5 MG TAB PO SCH (21:00)
[2019-05-27] MEDS: DONEPEZIL HCL 5 MG TAB PO SCH (21:00)
[2019-05-27] MEDS: GABAPENTIN 100 MG CAP PO SCH (21:00)
[2019-05-27] MEDS: ATORVASTATIN 20 MG TAB PO SCH (21:00)
[2019-05-28] MEDS: Meropenem 500 MG in NA CHLORIDE 0.9% 100 ML IV SCH ×3 (01:00→17:04)
[2019-05-28] MEDS: D5W 1,000 ML IV SCH ×2 (02:00→08:45)
[2019-05-28] MEDS: METOPROLOL TAR 50 MG TAB PO SCH (09:00)
[2019-05-28] MEDS: CARBAMAZEPINE 200 MG TAB PO SCH ×2 (09:00→13:51)
[2019-05-28] MEDS: ESCITALOPRAM 20 MG TAB PO SCH (09:00)
[2019-05-28] MEDS: DIVALPROEX DR 250 MG TAB PO SCH ×2 (09:00→13:51)
[2019-05-28] MEDS: BUSPIRONE HCL 5 MG TABLET PO SCH (09:00)
[2019-05-28] MEDS: DOCUSATE NA 100 MG CAP PO SCH (09:00)
[2019-05-28] MEDS: ASPIRIN EC 81 MG TAB PO SCH (09:00)
[2019-05-28] MEDS: ENOXAPARIN 40 MG/0.4 ML SQ SCH (09:04)
[2019-05-28 12:44] LABS: BUN Blood Urea Nitrogen 18 mg/dL (7-18); Bicarbonate 27 mmol/L (21-32); Glucose Level 107 mg/dL (74-106); Sodium Level 145 mmol/L (136-145)
--- NOTE | 2019-05-28 17:09 | P.DS ---
Admission Date: 05/23/19 Discharge Date: 05/28/19 Primary Care Provider: [facility] Disposition: TRANSFER TO [facility] Discharge Condition: GOOD Reason for Admission: Pneumonia - Problems (1) Pneumonia Current Visit: No Status: Acute Qualifiers: Pneumonia type: due to unspecified organism Laterality: left Lung location: lower lobe of lung Qualified Code(s): J18.1 - Lobar pneumonia, unspecified organism (2) Alzheimer's dementia Current Visit: No Status: Chronic Qualifiers: Alzheimer's disease onset: unspecified onset Dementia behavioral disturbance: with behavioral disturbance Qualified Code(s): G30.9 - Alzheimer' s disease, unspecified; F02.81 - Dementia in other diseases classified elsewhere with behavioral disturbance (3) Congestive heart failure Current Visit: No Status: Chronic Qualifiers: Heart failure type: diastolic Heart failure chronicity: chronic Qualified Code(s): I50.32 - Chronic diastolic (congestive) heart failure (4) Dysphagia Current Visit: No Status: Chronic Qualifiers: Dysphagia type: oropharyngeal phase Qualified Code(s): R13.12 - Dysphagia, oropharyngeal phase (5) Hyperlipidemia Current Visit: No Status: Chronic Qualifiers: Hyperlipidemia type: mixed hyperlipidemia Qualified Code(s): E78.2 - Mixed hyperlipidemia (6) Hypertension Current Visit: No Status: Chronic Qualifiers: Hypertension type: essential hypertension Qualified Code(s): I10 - Essential (primary) hypertension Brief History of Present Illness: 65-year-old male with multiple medical problems including Alzheimer's dementia, CAD, hypertension, hyperlipidemia, bipolar disorder. Patient was brought in from [facility]. Most of the information came from the ER physician as the patient is not able to give accurate history due to his dementia. group home reports the patient was short of breath with fever. There was also some question of confusion. group home records indicate that the patient had been on Levaquin for pneumonia. The patient was tachycardic in the emergency room. He did not appear at tachypneic. No acute respiratory distress noted patient was given IV fluids. In the ER patient evaluated. White count 12.1, hemoglobin 9.7. Sodium 141, potassium 3.7. BUN of 29, creatinine 1.1 with a GFR of 62. Glucose 141. Pro calcitonin elevated at 3.53. Urinalysis negative. Influenza test negative. Chest x-ray revealed left lower lobe pneumonia. Patient was admitted for further evaluation. When I saw the patient in the ER, longterm records indicate patient is DNR. Patient appears slightly improved but still tachycardic. Patient with dementia. Patient did not want to be hospitalized. I did try to get in contact with power of assistant prosecuting attorney and longterm without success to discuss hospitalization. Patient admitted for further failed outpatient treatment. Hospital Course: Overall during the hospital stay patient remained stable Patient was initially admitted to the hospital for altered mental status most likely secondary to left lower lobe pneumonia. Most likely secondary to aspiration. Patient was started on IV antibiotics here in the hospital. Blood cultures wound cultures and sputum cultures were collected. Sputum culture was negative for any acute growth. Blood culture was positive for multidrug resistant E. coli. Patient was switched over to IV meropenem at that time. Patient had marked improvement while here in the hospital and mentation did improve here in the hospital as well. Patient was back at baseline. Speech therapy was consulted who recommended the patient be NPO with speech therapy to work with the patient. Family was consulted regarding the nutritional status. Family at this time does not wish to have PEG tube or NG tube placed for nutritional replacement and stated that he could go back to the longterm and they will enroll him into hospice care. Patient then had a PICC line placed for IV meropenem and was transferred to the longterm for further care. Vital Signs/Physical Exam: Temp Pulse Resp BP Pulse Ox 98.1 F 72 15 120/62 100 05/28/19 16:00 05/28/19 16:00 05/28/19 16:00 05/28/19 16:00 05/28/19 16:00 General: Alert, In no apparent distress HEENT: Atraumatic, PERRLA, EOMI Neck: Supple, JVD not distended Respiratory: Clear to auscultation bilaterally, Normal air movement Cardiovascular: Regular rate/rhythm, Normal S1 S2 Gastrointestinal: Normal bowel sounds, No tenderness Musculoskeletal: No tenderness, Contractures Integumentary: No rashes Neurological: Normal tone, Normal affect, Abnormal speech Lymphatics: No axilla or inguinal lymphadenopathy Laboratory Data at Discharge: WBC 12.0 K/uL (4.3-10.9) H D 05/26/19 05:38 Hgb 10.4 g/dL (13.6-17.9) L 05/26/19 05:38 Hct 31.9 % (39.6-49.0) L 05/26/19 05:38 Plt Count 191 K/uL (152-406) 05/26/19 05:38 Sodium 145 mmol/L (136-145) 05/28/19 12:05 Potassium 4.0 mmol/L (3.5-5.1) 05/28/19 12:05 BUN 18 mg/dL (7-18) 05/28/19 12:05 Creatinine 0.50 mg/dL (0.55-1.3) L 05/28/19 12:05 Glucose 107 mg/dL (74-106) H 05/28/19 12:05 Magnesium 2.4 mg/dL (1.8-2.4) 05/26/19 05:38 Home Medications: Acetaminophen [Tylenol Extra Strength] 500 mg PO Q6H PRN 05/23/19 Aspirin [Aspir-Low] 81 mg PO DAILY 05/23/19 Atorvastatin Calcium [Lipitor*] 20 mg PO BEDTIME 05/23/19 Bisacodyl [Dulcolax*] 10 mg RC DAILY PRN 05/23/19 Buspirone HCl 15 mg PO BID 05/23/19 Carbamazepine 200 mg PO TID 05/23/19 Codeine/APAP [Tylenol #3*] 1 tab PO TID 05/23/19 Divalproex Sodium [Depakote] 250 mg PO TID 05/23/19 Docusate Sodium [Stool Softener] 100 mg PO BID 05/23/19 Donepezil [Aricept*] 5 mg PO BEDTIME 05/23/19 Escitalopram [Lexapro*] 10 mg PO DAILY 05/23/19 Finasteride [Proscar*] 5 mg PO DAILY 05/23/19 Guaif/Dm [Robitussin Dm*] 10 ml PO BID PRN 05/23/19 Ipratropium/Albuterol Sulfate [Iprat-Albut 0.5-3(2.5) mg/3 ml] 1 vial IH Q6H PRN 05/23/19 LORazepam [Ativan*] 1 mg PO BID 05/23/19 Lidocaine HCl [Aspercreme] 1 appl TOP DAILY 05/23/19 Metoprolol Tartrate 50 mg PO BID 05/23/19 Polyethylene Glycol 3350 [Miralax] 17 gm PO DAILY 05/23/19 Ranitidine [Zantac*] 150 mg PO DAILY 05/23/19 Simethicone [Gas Relief] 80 mg PO BID 05/23/19 Vit A,C & E/Lutein/Minerals [Ocuvite with Lutein Tablet] 1 tab PO BID 05/23/19 Meropenem [Merrem] 1 gm IV Q8H #42 vial 05/28/19 New Medications: Meropenem [Merrem] 1 gm IV Q8H #42 vial Diet: Regular Activity: Ad deborah
--- NOTE | 2019-05-28 19:26 | RAD REPORT ---
EXAM DESCRIPTION: RAD - Chest Single View - 05/28/2019 7:03 pm CLINICAL HISTORY: PICC line placement COMPARISON: May 24 FINDINGS: Portable chest was obtained following placement of a right upper extremity PICC line. The catheter tip is in the mid SVC. Right base lung parenchymal opacification is stable. Left lung base has cleared. Left subclavian Port -A-Cath in place.
== END 2019-05-28 20:02 | DRG 178 ==
LOC: ER 00:32 → ERHOLD 02:24 → 4TH 02:52
PROVIDERS: ADMIT Family Medicine; ATTEND Family Medicine
PROC: 02HV33Z Insertion of Infusion Device into Superior Vena Cava, Percutaneous Approach (ICD-10-PCS; principal; 2019-05-28)
DX: J69.0 Pneumonitis due to inhalation of food and vomit (principal); I50.32 Chronic diastolic (congestive) heart failure; R64 Cachexia; Z68.1 Body mass index [BMI] 19.9 or less, adult; R78.81 Bacteremia; J18.1 Lobar pneumonia, unspecified organism; E86.0 Dehydration; R13.12 Dysphagia, oropharyngeal phase; B96.20 Unspecified Escherichia coli [E. coli] as the cause of diseases classified elsewhere; Z16.12 Extended spectrum beta lactamase (ESBL) resistance; I11.0 Hypertensive heart disease with heart failure; G30.9 Alzheimer's disease, unspecified; F02.80 Dementia in other diseases classified elsewhere, unspecified severity, without behavioral disturbance, psychotic disturbance, mood disturbance, and anxiety; Z66 Do not resuscitate; E78.2 Mixed hyperlipidemia; D63.8 Anemia in other chronic diseases classified elsewhere; N40.0 Benign prostatic hyperplasia without lower urinary tract symptoms; F31.9 Bipolar disorder, unspecified; I25.10 Atherosclerotic heart disease of native coronary artery without angina pectoris
CPT/HCPCS: 36415; 51702; 71045; 74230; 80048; 80156; 80202; 81003; 81015; 82962; 83605; 83735; 83880; 84145; 85025; 87040; 87077; 87086; 87088; 87186; 87205; 87804; 92526; 92610; 92611; 93005; 94640; 94660; 94760; 96361; 96365; 96367; 96375; 97163; 97166; 99285; C9113; J0692; J1650; J2270; J2405; J7030